=== PATIENT | female | born 1945 | race Caucasian/White ===

== ENCOUNTER 2018-05-17 07:35 | Day surgery (SDC) | payer OTHER ==
[2018-05-16 13:57] LABS: Albumin 3.2 g/dL (3.4-5.0); Bilirubin Total 0.3 mg/dL (0.2-1.0); Potassium 4.2 mmol/L (3.5-5.1); Protein, Total 7.3 g/dL (6.4-8.2)
--- OUTSIDE RECORDS SUMMARY | 2018-05-17 07:43 | XMS REPORT | Clinical Summary ---
:1945 Author Organization [facility] Address [address] [place] [address] Phone Care Team Providers Name Role Phone Unavailable Primary Care Provider Unavailable Allergies Active Allergy Reactions Severity Noted Date Comments Meperidine 01/12/2017 Indomethacin Sodium 01/12/2017 Rosuvastatin 01/12/2017 Current Medications Prescription Sig. Disp. Refills Start Date End Date Status levothyroxine Take 50 mcg by mouth Active (SYNTHROID, Every morning on an LEVOTHROID) 50 MCG empty stomach. tablet venlafaxine Take 75 mg by mouth Active (EFFEXOR) 75 MG daily. tablet gabapentin Take 300 mg by mouth Active (NEURONTIN) 300 MG 3 (three) times capsule daily. rOPINIRole (REQUIP) Take 2 mg by mouth 3 Active 2 MG tablet (three) times daily. fenofibrate Take 145 mg by mouth Active (TRICOR) 145 MG daily. tablet HYDROcodone-acetami Take 1 tablet by Active nophen (NORCO mouth every 4 (four) 10-325) 10-325 mg hours as needed for per tablet Pain. morphine (MSIR) 30 Take 30 mg by mouth Active MG tablet every night as needed for Pain. tamoxifen Take 20 mg by mouth Active (NOLVADEX) 20 MG daily. tablet esomeprazole Take 40 mg by mouth Active (NEXIUM) 40 MG daily. capsule brimonidine-timolol 1 drop 2 (two) times Active (COMBIGAN) 0.2-0.5 daily Rt eye . % ophthalmic solution bimatoprost Place 1 drop into Active (LUMIGAN) 0.03 % both eyes nightly. ophthalmic drops metoprolol Take 25 mg by mouth Active (TOPROL-XL) 25 MG daily. 24 hr tablet NIFEdipine (ADALAT Take 30 mg by mouth Active CC) 30 MG 24 hr daily. tablet calcium carbonate Take 600 mg by mouth Active (OS-NENA) 600 mg 2 (two) times daily (1,500 mg) Tab with breakfast and dinner. senna-docusate Take 1 tablet by Active (SENNOSIDES-DOCUSAT mouth daily. E SODIUM) 8.6-50 mg per tablet enoxaparin Inject 0.7 mLs (70 30 Syringe 0 01/15/2017 Active (LOVENOX) 40 mg/0.4 mg total) mL Syrg subcutaneously daily. 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
--- OUTSIDE RECORDS SUMMARY | 2018-05-17 07:43 | XMS REPORT ---
:1945 Author Organization [facility] Address [address] [place] [address] Dr. Mason [address] [place] [id number] Care Team Providers Name Role Phone RICKY AARON Unavailable Unavailable Problems This patient has no known problems. Allergies, Adverse Reactions, Alerts This patient has no known allergies or adverse reactions. Medications This patient has no known medications. Results Test Description Test Time Test Comments Text Results Atomic Results Result Comments CBC W/PLT COUNT & AUTO DIFFERENTIAL 2017-01-15 08:04:00 Test Item Value Reference Range Comments WHITE BLOOD CELL COUNT (BEAKER) (test odtq=703) 7.6 K/ L 4.0-10.0 RED BLOOD CELL COUNT (BEAKER) (test qpcz=634) 3.35 M/ L 4.00-5.00 HEMOGLOBIN (BEAKER) (test wijh=388) 9.7 GM/DL 12.0-15.0 HEMATOCRIT (BEAKER) (test dccl=907) 29.7 % 36.0-45.0 MEAN CORPUSCULAR VOLUME (BEAKER) (test ixjv=788) 88.4 fL 82.0-99.0 MEAN CORPUSCULAR HEMOGLOBIN (BEAKER) (test odjp=421) 28.9 pg 27.0-33.0 MEAN CORPUSCULAR HEMOGLOBIN CONC (BEAKER) (test ddug=639) 32.7 GM/DL 32.0- 36.0 RED CELL DISTRIBUTION WIDTH (BEAKER) (test brxu=510) 16.8 % 10.3-14.2 PLATELET COUNT (BEAKER) (test qdca=846) 240 K/CU MM 150-430 MEAN PLATELET VOLUME (BEAKER) (test trxw=989) 6.2 fL 6.5-10.5 NUCLEATED RED BLOOD CELLS (BEAKER) (test jvcp=634) 0 /100 WBC 0-0 NEUTROPHILS RELATIVE PERCENT (BEAKER) (test ssys=069) 83 % LYMPHOCYTES RELATIVE PERCENT (BEAKER) (test wzhd=599) 10 % MONOCYTES RELATIVE PERCENT (BEAKER) (test gxdm=066) 6 % EOSINOPHILS RELATIVE PERCENT (BEAKER) (test hoic=805) 0 % BASOPHILS RELATIVE PERCENT (BEAKER) (test ltjt=024) 0 % NEUTROPHILS ABSOLUTE COUNT (BEAKER) (test ziqi=941) 6.31 K/ L 1.80-8.00 LYMPHOCYTES ABSOLUTE COUNT (BEAKER) (test svry=874) 0.75 K/ L 1.48-4.50 MONOCYTES ABSOLUTE COUNT (BEAKER) (test pwzy=394) 0.47 K/ L 0.00-1.30 EOSINOPHILS ABSOLUTE COUNT (BEAKER) (test wyrl=326) 0.02 K/ L 0.00-0.50 BASOPHILS ABSOLUTE COUNT (BEAKER) (test vpck=944) 0.03 K/ L 0.00-0.20 0.00POCT-GLUCOSE [id number] 08:02:00 Test Item Value Reference Range Comments POC-GLUCOSE METER (BEAKER) 146 mg/dL 70-110 TESTED AT [address] (test wuql=2173) [facility] [id number] BASIC METABOLIC [id number] 06:13:00 Test Item Value Reference Range Comments SODIUM (BEAKER) (test 139 meq/L 136-145 vsta=081) POTASSIUM (BEAKER) (test 3.6 meq/L 3.5-5.1 gfyo=569) CHLORIDE (BEAKER) (test 105 meq/L 98-107 jdxn=208) CO2 (BEAKER) (test 25 meq/L 22-29 drkt=462) BLOOD UREA NITROGEN 21 mg/dL 7-21 (BEAKER) (test dnva=638) CREATININE (BEAKER) (test 0.88 mg/dL 0.57-1.25 xjir=038) GLUCOSE RANDOM (BEAKER) 144 mg/dL 70-105 (test cydq=644) CALCIUM (BEAKER) (test 9.2 mg/dL 8.4-10.2 fjlm=836) EGFR (BEAKER) (test 63 mL/min/1.73 sq m ESTIMATED GFR IS NOT zkov=8451) ACCURATE CREATININE CLEARANCE IN PREDICTING GLOMERULAR FILTRATION RATE. ESTIMATED GFR IS NOT APPLICABLE FOR DIALYSIS PATIENTS. PROTHROMBIN [id number] 05:53:00 Test Item Value Reference Range Comments PROTIME (BEAKER) (test hrgi=118) 16.6 seconds 11.7-14.7 INR (BEAKER) (test ojbz=699) 1.4 <=5.9 RECOMMENDED COUMADIN/WARFARIN INR THERAPY RANGESSTANDARD DOSE: 2.0 - 3.0 Includes: PROPHYLAXIS forvenous thrombosis, systemic embolization; TREATMENT for venous thrombosis and/or pulmonary embolus.HIGH RISK: Target INR is 2.5-3.5 for patients with mechanical heart valves.POCT-GLUCOSE [id number] 21:46:00 Test Item Value Reference Range Comments POC-GLUCOSE METER (BEAKER) 195 mg/dL 70-110 TESTED AT [address] (test lepf=8968) [place] [address] POCT-GLUCOSE [id number] 15:39:00 Test Item Value Reference Range Comments POC-GLUCOSE METER (BEAKER) 104 mg/dL 70-110 TESTED AT [address] (test vkaq=4521) [place] [address] POCT-GLUCOSE [id number] 08:42:00 Test Item Value Reference Range Comments POC-GLUCOSE METER (BEAKER) 151 mg/dL 70-110 TESTED AT [address] (test cacq=7625) [place] [address] POTASSIUM-STAT [id number] 08:42:00 Test Item Value Reference Range Comments POTASSIUM (BEAKER) (test chno=112) 4.2 meq/L 3.6-5.5 PROTHROMBIN [id number] 06:35:00 Test Item Value Reference Range Comments PROTIME (BEAKER) (test mvxw=636) 19.9 seconds 11.7-14.7 INR (BEAKER) (test igsh=154) 1.7 <=5.9 RECOMMENDED COUMADIN/WARFARIN INR THERAPY RANGESSTANDARD DOSE: 2.0 - 3.0 Includes: PROPHYLAXIS forvenous thrombosis, systemic embolization; TREATMENT for venous thrombosis and/or pulmonary embolus.HIGH RISK: Target INR is 2.5-3.5 for patients with mechanical heart valves.POCT-GLUCOSE [id number] 17:41:00 Test Item Value Reference Range Comments POC-GLUCOSE METER (BEAKER) 225 mg/dL 70-110 TESTED AT [address] (test zkkw=2311) [place] [id number] 00:38:00 Test Item Value Reference Range Comments PHOSPHORUS (BEAKER) (test flgv=040) 2.2 mg/dL 2.3-4.7 [id number] 00:38:00 Test Item Value Reference Range Comments MAGNESIUM (BEAKER) (test nuye=599) 2.0 mg/dL 1.6-2.6 BASIC METABOLIC [id number] 00:38:00 Test Item Value Reference Range Comments SODIUM (BEAKER) (test 138 meq/L 136-145 ehmj=258) POTASSIUM (BEAKER) (test 3.1 meq/L 3.5-5.1 jkih=299) CHLORIDE (BEAKER) (test 106 meq/L 98-107 uhyz=770) CO2 (BEAKER) (test 23 meq/L 22-29 hjyj=876) BLOOD UREA NITROGEN 16 mg/dL 7-21 (BEAKER) (test uhjs=641) CREATININE (BEAKER) (test 0.76 mg/dL 0.57-1.25 mexr=470) GLUCOSE RANDOM (BEAKER) 151 mg/dL 70-105 (test hgti=189) CALCIUM (BEAKER) (test 8.6 mg/dL 8.4-10.2 ewbt=218) EGFR (BEAKER) (test 75 mL/min/1.73 sq m ESTIMATED GFR IS NOT bwfr=9942) ACCURATE CREATININE CLEARANCE IN PREDICTING GLOMERULAR FILTRATION RATE. ESTIMATED GFR IS NOT APPLICABLE FOR DIALYSIS PATIENTS. [id number] 00:35:00 Test Item Value Reference Range Comments PARTIAL THROMBOPLASTIN TIME (BEAKER) (test 34.9 seconds 22.5-36.0 ixwj=607) PROTHROMBIN TIME/[id number] 00:34:00 Test Item Value Reference Range Comments PROTIME (BEAKER) (test xkgd=193) 26.2 seconds 11.7-14.7 INR (BEAKER) (test pgbi=976) 2.4 <=5.9 RECOMMENDED COUMADIN/WARFARIN INR THERAPY RANGESSTANDARD DOSE: 2.0 - 3.0 Includes: PROPHYLAXIS forvenous thrombosis, systemic embolization; TREATMENT for venous thrombosis and/or pulmonary embolus.HIGH RISK: Target INR is 2.5-3.5 for patients with mechanical heart valves.CBC (HEMOGRAM ONLY)2017-01-13 00:33:00 Test Item Value Reference Range Comments WHITE BLOOD CELL COUNT (BEAKER) (test mzwu=146) 5.3 K/ L 4.0-10.0 RED BLOOD CELL COUNT (BEAKER) (test kokn=636) 3.60 M/ L 4.00-5.00 HEMOGLOBIN (BEAKER) (test esja=998) 10.1 GM/DL 12.0-15.0 HEMATOCRIT (BEAKER) (test fqnj=348) 31.7 % 36.0-45.0 MEAN CORPUSCULAR VOLUME (BEAKER) (test bzko=470) 88.1 fL 82.0-99.0 MEAN CORPUSCULAR HEMOGLOBIN (BEAKER) (test 28.0 pg 27.0-33.0 pgvj=372) MEAN CORPUSCULAR HEMOGLOBIN CONC (BEAKER) (test 31.7 GM/DL 32.0-36.0 hvxt=580) RED CELL DISTRIBUTION WIDTH (BEAKER) (test 16.6 % 10.3-14.2 mpjn=497) PLATELET COUNT (BEAKER) (test zvkz=533) 260 K/CU MM 150-430 MEAN PLATELET VOLUME (BEAKER) (test cegq=723) 5.8 fL 6.5-10.5 NUCLEATED RED BLOOD CELLS (BEAKER) (test 0 /100 WBC 0-0 wqme=407) 0.00
[2018-05-17] MEDS ORDERED: NA CHLORIDE 0.9% 250 ML ONE ×2 (08:37→11:20)
[2018-05-17 10:08] VITALS: BMI 29.2
[2018-05-17 14:40] VITALS: BP 131/63; TEMP 99.4; O2SAT 96
[2018-05-17 16:38] LABS: Hematocrit 34.2 % (36.0-45.0)
== END 2018-05-17 16:30 | disposition home or self-care (01) ==
LOC: DS 07:35
PROVIDERS: ATTEND Internal Medicine Medical Oncology
PROC: 30233N1 Transfusion of Nonautologous Red Blood Cells into Peripheral Vein, Percutaneous Approach (ICD-10-PCS; principal; 2018-05-17)
DX: D64.89 Other specified anemias (principal); C50.119 Malignant neoplasm of central portion of unspecified female breast; C79.32 Secondary malignant neoplasm of cerebral meninges; I48.91 Unspecified atrial fibrillation; Z79.01 Long term (current) use of anticoagulants
CPT/HCPCS: 36415 ×2; 36430; 80053; 85014; 85018; 86850; 86900; 86901; P9016 ×2

== ENCOUNTER 2018-09-28 16:46 | Inpatient (IN) | payer OTHER ==
--- OUTSIDE RECORDS SUMMARY | 2018-09-28 16:48 | XMS REPORT | Clinical Summary ---
:1945 Author Organization [facility] Address [address] [place] [address] Care Team Providers Name Role Phone Sharpless Primary Care Provider Allergies Active Allergy Reactions Severity Noted Date Comments Meperidine 01/12/2017 Indomethacin Sodium 01/12/2017 Rosuvastatin 01/12/2017 Medications Medication Sig Dispensed Refills Start End Date Status Date levothyroxine Take 50 mcg by 0 Active (SYNTHROID, mouth Every LEVOTHROID) 50 MCG morning on an tablet empty stomach. venlafaxine Take 75 mg by 0 Active (EFFEXOR) 75 MG mouth daily. tablet gabapentin Take 300 mg by 0 Active (NEURONTIN) 300 MG mouth 3 (three) capsule times daily. rOPINIRole Take 2 mg by mouth 0 Active (REQUIP) 2 MG 3 (three) times tablet daily. fenofibrate Take 145 mg by 0 Active (TRICOR) 145 MG mouth daily. tablet HYDROcodone-acetam Take 1 tablet by 0 Active inophen (NORCO mouth every 4 10-325) 10-325 mg (four) hours as per tablet needed for Pain. esomeprazole Take 40 mg by 0 Active (NEXIUM) 40 MG mouth daily. capsule brimonidine-timolo 1 drop 2 (two) 0 Active l (COMBIGAN) times daily Rt eye 0.2-0.5 % . ophthalmic solution NIFEdipine (ADALAT Take 30 mg by 0 Active CC) 30 MG 24 hr mouth daily. tablet calcium carbonate Take 600 mg by 0 Active (OS-NENA) 600 mg mouth 2 (two) (1,500 mg) Tab times daily with breakfast and dinner. senna-docusate Take 1 tablet by 0 Active (SENNOSIDES-DOCUSA mouth daily. TE SODIUM) 8.6-50 mg per tablet VERZENIO 150 mg Take 1 tablet by 0 Active Tab mouth nightly. [address] 0[address]01 % Place 1 drop into 2 Active Drop ophthalmic the right eye 8 solution nightly. metoprolol Take 1 tablet by 3 Active (TOPROL-XL) 50 MG mouth daily. 8 24 hr tablet morphine (MS Take 30 mg by 0 Active CONTIN) 30 MG 12 mouth daily. 8 hr tablet morphine (MS Take 45 mg by 0 Active CONTIN) 15 MG 12 mouth nightly. 8 hr tablet morphine (MSIR) 30 Take 30 mg by 0 06/25/20 Discontinued MG tablet mouth every night 18 as needed for Pain. tamoxifen Take 20 mg by 0 06/25/20 Discontinued (NOLVADEX) 20 MG mouth daily. [address] 1 drop into 0 06/25/20 Discontinued (LUMIGAN) 0.03 % both eyes nightly. 18 ophthalmic drops metoprolol Take 25 mg by 0 06/25/20 Discontinued (TOPROL-XL) 25 MG mouth daily. 18 24 hr tablet enoxaparin Inject 0.7 mLs (70 30 Syringe 0 06/25/20 Discontinued (LOVENOX) 40 mg total) 7 18 mg/0.4 mL Syrg subcutaneously daily. warfarin Take 4 mg by mouth 1 06/27/20 Discontinued (COUMADIN) 2 MG every evening. 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/2017 Hypothyroid 02/01/2017 Essential hypertension 02/01/2017 Mood disorder 02/01/2017 Metastatic breast cancer 01/13/2017 Encounters Date Type Specialty Care Team Description 06/25/2018 - [facility], Paroxysmal atrial fibrillation (HCC); 06/27/2018 Encounter Medicine Trudy Jacobson, Malignant neoplasm of female breast, unspecified estrogen receptor status, unspecified laterality, unspecified site of breast (HCC); Essential hypertension; Alejandra Vieyra Fall, initial encounter; Carmelita Sarabia, History of DVT (deep vein thrombosis); Leptomeningeal disease; Danika 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 Last Filed Vital Signs Vital Sign Reading Time Taken Blood Pressure 117/58 06/27/2018 8:00 AM CDT Pulse 62 06/27/2018 8:00 AM CDT Temperature 36.7 C (98.1 F) 06/27/2018 8:00 AM CDT Respiratory Rate 16 06/27/2018 8:00 AM CDT Oxygen Saturation 99% 06/27/2018 8:00 AM CDT Inhaled Oxygen Concentration - - Weight 72.6 kg (159 lb 15.8 oz) 06/25/2018 9:00 PM CDT Height 162.6 cm (5' 4") 06/25/2018 8:00 PM CDT Body Mass Index 27.46 06/25/2018 9:00 PM CDT Plan of Treatment Not on file Procedures Procedure Name Priority Date/Time Associated Comments Diagnosis TRANSFUSION SERVICE 06/28/2018 6:02 REPORT - SCAN PM CDT RHYTHM STRIP - SCAN 06/28/2018 11:20 AM CDT PREPARE PLASMA STAT 06/27/2018 11:54 Results for this PM CDT procedure are in the results section. TRANSFUSION SERVICE 06/27/2018 6:00 REPORT - SCAN PM CDT CT BRAIN WITHOUT IV BRITNI 06/27/2018 7:04 Results for this CONTRAST AM CDT procedure are in the results section. CBC W/PLT COUNT & Routine 06/27/2018 5:11 Results for this AUTO DIFFERENTIAL AM CDT procedure are in the results section. CBC W/PLT COUNT & Routine 06/27/2018 5:11 Results for this AUTO DIFFERENTIAL AM CDT procedure are in the results section. MAGNESIUM Routine 06/27/2018 5:11 Results for this AM CDT procedure are in the results section. PROTHROMBIN TIME/INR Routine 06/27/2018 5:11 Results for this AM CDT procedure are in the results section. BASIC METABOLIC PANEL Routine 06/27/2018 5:11 Results for this (7) AM CDT procedure are in the results section. XR SPINE LUMBER 2 OR BRITNI 06/26/2018 5:06 Results for this 3 VIEWS PM CDT procedure are in the results section. XR HIP LEFT 2 VIEW BRITNI 06/26/2018 4:45 Results for this PM CDT procedure are in the results section. PROTHROMBIN TIME/INR Routine 06/26/2018 11:54 Results for this AM CDT procedure are in the results section. VENOUS DOPPLER LEGS Routine 06/26/2018 10:55 Results for this BILATERAL AM CDT procedure are in the results section. TRANSFUSE PLASMA STAT 06/26/2018 9:[address] SPINE CERVICAL Routine 06/26/2018 7:31 Results for this WITHOUT IV CONTRAST AM CDT procedure are in the results section. CT BRAIN WITHOUT IV Routine 06/26/2018 7:31 Results for this CONTRAST AM CDT procedure are in the results section. TYPE AND SCREEN, STAT 06/26/2018 5:46 Results for this AUTOMATED AM CDT procedure are in the results section. CBC W/PLT COUNT & Routine 06/26/2018 2:44 Results for this AUTO DIFFERENTIAL AM CDT procedure are in the results section. CBC W/PLT COUNT & Routine 06/26/2018 2:44 Results for this AUTO DIFFERENTIAL AM CDT procedure are in the results section. MAGNESIUM Routine 06/26/2018 2:44 Results for this AM CDT procedure are in the results section. PROTHROMBIN TIME/INR Routine 06/26/2018 2:44 Results for this AM CDT procedure are in the results section. BASIC METABOLIC PANEL Routine 06/26/2018 2:44 Results for this (7) AM CDT procedure are in the results section. CT BRAIN WITHOUT IV STAT 06/25/2018 9:21 Results for this CONTRAST PM CDT procedure are in the results section. after 09/27/2017 Results TRANSFUSION SERVICE REPORT - SCAN (06/28/2018 6:02 PM CDT)Only the most recent of2 resultswithin the time period is included. Narrative Performed At RHYTHM STRIP - SCAN (06/28/2018 11:20 AM CDT) Narrative Performed At Prepare plasma (06/27/2018 11:54 PM CDT) Unit ABO A Pos SAFETRACE TX UNIT NUMBER [id number] SAFETRACE TX Status TRANSFUSED SAFETRACE TX Blood Bank Product FFP SAFETRACE TX PRODUCT CODE [id number] SAFETRACE TX Specimen Blood Performing Organization Address City/State/Zipcode Phone Number SAFETRACE TX CT brain without IV contrast (06/27/2018 7:04 AM CDT)Only the most recent of3 resultswithin the time period is included. Narrative Performed At FINAL REPORT [facility] CT head without contrast. Comparisons: June 26, 2018 Reason for exam: SDH, eval. Discussion: Multiple axial CT images of the head are provided without contrast evaluated in brain and bone windows. Dose modulation, iterative reconstruction, and/or weight based adjustment of the mA/kV was utilized to reduce the radiation dose to as low as reasonably achievable. A subtle mildly hyperdense hemorrhagic subdural collection along left frontal convexity is barely perceptible but grossly unchanged from that of the prior study. No associated mass effect. Vascular changes of both cerebral hemispheres are similar. No hydrocephalus or shift. Phthisis bulbi changes left side again noted. Impressions: 1. Stable very small hemorrhagic subdural collection on the left with no mass effect.. Signed: Ina Wayne MD Report Verified Date/Time:06/27/2018 07:54:47 Reading Location: [address] Neuro Reading Room Procedure Note Interface, External Ris In - 06/27/2018 7:56 AM CDT FINAL REPORT CT head without contrast. Comparisons: June 26, 2018 Reason for exam: SDH, eval. Discussion: Multiple axial CT images of the head are provided without contrast evaluated in brain and bone windows. Dose modulation, iterative reconstruction, and/or weight based adjustment of the mA/kV was utilized to reduce the radiation dose to as low as reasonably achievable. A subtle mildly hyperdense hemorrhagic subdural collection along left frontal convexity is barely perceptible but grossly unchanged from that of the prior study. No associated mass effect. Vascular changes of both cerebral hemispheres are similar. No hydrocephalus or shift. Phthisis bulbi changes left side again noted. Impressions: 1. Stable very small hemorrhagic subdural collection on the left with no mass effect.. Signed: Ina Wayne MD Report Verified Date/Time: 06/27/2018 07:54:47 Reading Location: [facility] B1 [id number] Neuro Reading Room Performing Organization Address City/State/Zipcode Phone Number GE RIS CBC with platelet count + automated diff (06/27/2018 5:11 AM CDT)Only the most recent of2 resultswithin the time period is included. WBC 3.3 (L) 3.5 - 10.5 K/L [facility] RBC 2.64 (L) 3.93 - 5.22 M/L [facility] Hemoglobin 8.1 (L) 11.2 - 15.7 GM/DL [facility] Hematocrit 26.1 (L) 34.1 - 44.9 % [facility] MCV 98.9 (H) 79.4 - 94.8 fL [facility] MCH 30.7 25.6 - 32.2 pg [facility] MCHC 31.0 (L) 32.2 - 35.5 GM/DL [facility] RDW 16.3 (H) 11.7 - 14.4 % [facility] Platelets 159 150 - 450 K/CU MM [facility] MPV 8.9 (L) 9.4 - 12.3 fL [facility] nRBC 0 0 - 0 /100 WBC [facility] % Neutros 74 % [facility] % Lymphs 12 % [facility] % Monos 7 % [facility] % Eos 4 % [facility] % Baso 0 % [facility] # Neutros 2.42 1.56 - 6.13 K/L [facility] # Lymphs 0.40 (L) 1.18 - 3.74 K/L [facility] # Monos 0.21 (L) 0.24 - 0.36 K/L [facility] # Eos 0.14 0.04 - 0.36 K/L [facility] # Baso 0.01 0.01 - 0.08 K/L [facility] Immature Granulocytes-Relative 2 (H) 0 - 1 % [facility] Specimen Blood - Arm, Left Performing Organization Address City/[facility] Phone Number [address] [address] CENTER Prothrombin time/INR (06/27/2018 5:11 AM CDT)Only the most recent of3 resultswithin the time period is included. Protime 15.3 (H) 11.7 - 14.7 seconds [facility] INR 1.2 <=5.9 [facility] Specimen Blood - Arm, Left Narrative Performed At [facility] RECOMMENDED COUMADIN/WARFARIN INR THERAPY RANGES STANDARD DOSE: 2.0 - 3.0 Includes: PROPHYLAXIS for venous thrombosis, systemic embolization; TREATMENT for venous thrombosis and/or pulmonary embolus. HIGH RISK: Target INR is 2.5-3.5 for patients with mechanical heart valves. Performing Organization Address City/[facility]/Zipcode Phone Number [address] [address] CENTER Magnesium (06/27/2018 5:11 AM CDT)Only the most recent of2 resultswithin the time period is included. Magnesium 2.1 1.6 - 2.6 mg/dL [facility] Specimen Blood - Arm, Left Performing Organization Address City/State/Zipcode Phone Number [facility] [address] [place] [address] MISENHEIMER Basic metabolic panel (06/27/2018 5:11 AM CDT)Only the most recent of2 resultswithin the time period is included. Sodium 138 136 - 145 meq/L [facility] Potassium 4.0 3.5 - 5.1 meq/L [facility] Chloride 107 98 - 107 meq/L [facility] CO2 25 22 - 29 meq/L [facility] BUN 12 7 - 21 mg/dL [facility] Creatinine 0.86 0.57 - 1.25 mg/dL [facility] Glucose 98 70 - 105 mg/dL [facility] Calcium 10.0 8.4 - 10.2 mg/dL [facility] EGFR 65Comment: ESTIMATED GFR IS mL/min/1.73 sq m [facility] NOT ACCURATE CREATININE [facility]ENTER CLEARANCE IN PREDICTING GLOMERULAR FILTRATION RATE. ESTIMATED GFR IS NOT APPLICABLE FOR DIALYSIS PATIENTS. Specimen Blood - Arm, Left Performing Organization Address City/State/Zipcode Phone Number [facility] [address] [place] [address] MISENHEIMER XR spine lumbar 2 or 3 views (06/26/2018 5:06 PM CDT) Narrative Performed At FINAL REPORT [facility] CLINICAL HISTORY: Back pain, concern for pathologic fracture COMPARISON: None. Correlation is made with an MRI of the lumbar spine dated 01/14/2017. FINDINGS: 3 views of the lumbar spine are submitted without comparison. There are 5 lumbar vertebral levels. There is a stable, chronic compression deformity of the vertebral body of T11. No acute fracture is identified. There is no acute malalignment. Subtle heterogeneity of the medullary bone and is in keeping with the previous diagnosis of metastatic disease. There is mild to moderate degenerative loss of disc space height in the visualized thoracic spine and in the upper lumbar spine, including L1-L2 and L2-L3. There is facet hypertrophy in the mid to lower lumbosacral spine. The neural foramina are grossly patent. No spondylolisthesis is present. Surgical clips overlie the upper abdomen, seen on the lateral view.. IMPRESSION: No acute fracture or malalignment of the lumbar spine. Stable, chronic compression deformity of the vertebral body of T11. Subtle, diffuse heterogeneity of the medullary bone of the lumbar spine, in keeping with the previously diagnosed metastatic disease. Better evaluation with MRI or bone scan can be performed, if indicated. Degenerative changes, as described. Signed: Arslan Mcgill MD Report Verified Date/Time:06/26/2018 17:38:08 Reading Location: [address] Reading Room Procedure Note Interface, External Ris In - 06/26/2018 5:40 PM CDT FINAL REPORT CLINICAL HISTORY: Back pain, concern for pathologic fracture COMPARISON: None. Correlation is made with an MRI of the lumbar spine dated 01/14/2017. FINDINGS: 3 views of the lumbar spine are submitted without comparison. There are 5 lumbar vertebral levels. There is a stable, chronic compression deformity of the vertebral body of T11. No acute fracture is identified. There is no acute malalignment. Subtle heterogeneity of the medullary bone and is in keeping with the previous diagnosis of metastatic disease. There is mild to moderate degenerative loss of disc space height in the visualized thoracic spine and in the upper lumbar spine, including L1-L2 and L2-L3. There is facet hypertrophy in the mid to lower lumbosacral spine. The neural foramina are grossly patent. No spondylolisthesis is present. Surgical clips overlie the upper abdomen, seen on the lateral view.. IMPRESSION: No acute fracture or malalignment of the lumbar spine. Stable, chronic compression deformity of the vertebral body of T11. Subtle, diffuse heterogeneity of the medullary bone of the lumbar spine, in keeping with the previously diagnosed metastatic disease. Better evaluation with MRI or bone scan can be performed, if indicated. Degenerative changes, as described. Signed: Arslan Mcgill MD Report Verified Date/Time: 06/26/2018 17:38:08 Reading Location: [address] Reading Room Performing Organization Address [facility] Phone Number GE RIS XR hip 2 views left (06/26/2018 4:45 PM CDT) Narrative Performed At FINAL REPORT [facility] CLINICAL HISTORY: Left hip pain, concern for pathologic fracture COMPARISON: None. Correlation is made with a CT of the abdomen and pelvis dated 01/13/2017. FINDINGS: 2 views of the left hip are submitted. There is no acute fracture, malalignment or significant degenerative change to explain the patient's pain. The subtle osseous heterogeneity seen on previous CT scan is not well appreciated on this limited radiographic view of the left hip. No large destructive bony lesion is present. If there is concern for underlying infiltrative metastatic disease in the skeleton further evaluation with bone scan or MRI can be obtained. Signed: Arslan Mcgill MD Report Verified Date/Time:06/26/2018 17:33:22 Reading Location: [address] Reading Room Procedure Note Interface, External Ris In - 06/26/2018 5:35 PM CDT FINAL REPORT CLINICAL HISTORY: Left hip pain, concern for pathologic fracture COMPARISON: None. Correlation is made with a CT of the abdomen and pelvis dated 01/13/2017. FINDINGS: 2 views of the left hip are submitted. There is no acute fracture, malalignment or significant degenerative change to explain the patient's pain. The subtle osseous heterogeneity seen on previous CT scan is not well appreciated on this limited radiographic view of the left hip. No large destructive bony lesion is present. If there is concern for underlying infiltrative metastatic disease in the skeleton further evaluation with bone scan or MRI can be obtained. Signed: Arslan Mcgill MD Report Verified Date/Time: 06/26/2018 17:33:22 Reading Location: [address] Reading Room Performing Organization Address [facility] Phone Number GE RIS Venous doppler legs bilateral (06/26/2018 10:55 AM CDT) Ejection Fraction [facility]ON CPACS Impressions Performed At Right Impression [facility] 1. There is no deep venous obstruction in the common femoral, profunda femoral, femoral, popliteal, posterior tibial or peroneal veins. 2. There is no superficial venous obstruction in the great saphenous vein. Left Impression 1. There is no deep venous obstruction in the common femoral, profunda femoral, femoral, popliteal, posterior tibial or peroneal veins. 2. There is no superficial venous obstruction in the great saphenous vein. Conclusions Summary Venous duplex imaging and compression of the bilateral lower extremities were performed. The veins were adequately visualized. The bilateral venous systems were patent and compressible with no evidence of thrombus. The venous Doppler waveforms were phasic with respiration. Signature Velocities are measured in cm/s ; Diameters are measured in cm Narrative Performed At [facility] - Lower Extremities DVT Study [facility] Demographics Patient NamePHISARAH CALL Date of Study06/26/2018 SHILA 73 Visit [id number] Female of Birth1945 Number Referring Alejandra Kaur [id number] Physician Cornell Vieyra MD Plant Tour Guide Marzena Rodríguez RVTInterpreting Ganesh Merlos, RPVI Procedure Type of Study: Veins: Lower Extremities DVT Study, VENOUS DOPPLER LEG, BILATERAL. Indications for Study:Prior history of DVT . Patient Status:Routine. Study Location:Vascular Lab. Technical Quality:Adequate visualization. Risk Factors History of Disease +---------+----+ + !Diagnosis!Date!Comments ! +---------+----+ + !Other!!CANCER, HTN, PREVIOUS DVT ! +---------+----+ + Procedure Note Interface, External Ris In - 06/26/2018 11:32 AM CDT [facility] - Lower Extremities DVT Study Demographics Patient Name SARAH SHORT Date of Study 06/26/2018 SHILA Age 73 Visit Number [id number] Gender Female Date of 1945 Number Referring Alejandra Mae Room Number [id number] Physician Cornell Vieyra MD Plant Tour Guide Marzena Rodríguez T Interpreting Casi Lantigua, Physician , RPVI Procedure Type of Study: Veins: Lower Extremities DVT Study, VENOUS DOPPLER LEG, BILATERAL. Indications for Study:Prior history of DVT . Patient Status:Routine. Study Location:Vascular Lab. Technical Quality:Adequate visualization. Risk Factors History of Disease +---------+----+ + !Diagnosis!Date!Comments ! +---------+----+ + !Other ! !CANCER, HTN, PREVIOUS DVT ! +---------+----+ + Impressions Right Impression 1. There is no deep venous obstruction in the common femoral, profunda femoral, femoral, popliteal, posterior tibial or peroneal veins. 2. There is no superficial venous obstruction in the great saphenous vein. Left Impression 1. There is no deep venous obstruction in the common femoral, profunda femoral, femoral, popliteal, posterior tibial or peroneal veins. 2. There is no superficial venous obstruction in the great saphenous vein. Conclusions Summary Venous duplex imaging and compression of the bilateral lower extremities were performed. The veins were adequately visualized. The bilateral venous systems were patent and compressible with no evidence of thrombus. The venous Doppler waveforms were phasic with respiration. Signature Velocities are measured in cm/s ; Diameters are measured in cm Performing Organization Address City/State/Zipcode Phone Number [facility] Transfuse plasma (06/26/2018 9:18 AM CDT)Only the most recent of2 resultswithin the time period is included.CT spine cervical without IV contrast (06/26/2018 7:31 AM CDT) Narrative Performed At FINAL REPORT [facility] CT head without contrast. Reason for exam: subdural hematoma Comparisons: June 25, 2018 Discussion: Multiple axial CT images of the head are provided without contrast evaluated in brain and bone windows. This exam was performed according to our departmental dose optimization program which includes automated exposure control, adjustment of the mA and/or kV according to patient's size and/or use of iterative reconstructive technique. Small left high frontal subdural hematoma is unchanged, measuring up to 6 mm in maximal thickness, and without significant mass effect. There is generalized brain parenchymal volume loss, and a moderate degree of white matter chronic microvascular ischemic change, as before. No evidence of large vascular territory acute infarct. No midline shift, hydrocephalus. 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 Calvarium is intact. The visualized paranasal sinuses and mastoid air cells are unremarkable. Impressions: Stable appearance of 6 mm left subdural hematoma, without significant mass effect. CT cervical spine without contrast INDICATION: subdural hematoma COMPARISON: MRI dated January 14, 2017 TECHNIQUE: Multiple axial CT images of the cervical spine were obtained without contrast. Sagittal and coronal 2D reconstructions were provided as well. This exam was performed according to our departmental dose optimization program which includes automated exposure control, adjustment of the mA and/or kV according to patient's size and/or use of iterative reconstructive technique. FINDINGS: Vertebral body height is normal, and alignment is maintained. Multiple lytic lesions are present in the cervical spine and visualized upper thoracic spine, in keeping with known metastasis. No evidence of acute fracture. There are multilevel degenerative changes. Central canal appears mild to moderately narrowed at C5-C6, and C6-C7. There is also severe right-sided foraminal stenosis at C4-C5, and moderate bilateral foraminal stenosis at C5-C6. No prevertebral edema. No hematoma or abnormal fluid collection is identified. The paraspinal soft tissues appear unremarkable. Thyroid gland is homogeneous. There is scarring at the left lung apex. IMPRESSION: Multiple lytic lesions in cervical and upper thoracic spine, in keeping with known metastasis. Degenerative changes as described. Signed: Maranda Harris MD Report Verified Date/Time:06/26/2018 08:23:10 Reading Location: [facility] C013 Neuro Reading Room Procedure Note Interface, External Ris In - 06/26/2018 8:25 AM CDT FINAL REPORT CT head without contrast. Reason for exam: subdural hematoma Comparisons: June 25, 2018 Discussion: Multiple axial CT images of the head are provided without contrast evaluated in brain and bone windows. This exam was performed according to our departmental dose optimization program which includes automated exposure control, adjustment of the mA and/or kV according to patient's size and/or use of iterative reconstructive technique. Small left high frontal subdural hematoma is unchanged, measuring up to 6 mm in maximal thickness, and without significant mass effect. There is generalized brain parenchymal volume loss, and a moderate degree of white matter chronic microvascular ischemic change, as before. No evidence of large vascular territory acute infarct. No midline shift, hydrocephalus. 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 Calvarium is intact. The visualized paranasal sinuses and mastoid air cells are unremarkable. Impressions: Stable appearance of 6 mm left subdural hematoma, without significant mass effect. CT cervical spine without contrast INDICATION: subdural hematoma COMPARISON: MRI dated January 14, 2017 TECHNIQUE: Multiple axial CT images of the cervical spine were obtained without contrast. Sagittal and coronal 2D reconstructions were provided as well. This exam was performed according to our departmental dose optimization program which includes automated exposure control, adjustment of the mA and/or kV according to patient's size and/or use of iterative reconstructive technique. FINDINGS: Vertebral body height is normal, and alignment is maintained. Multiple lytic lesions are present in the cervical spine and visualized upper thoracic spine, in keeping with known metastasis. No evidence of acute fracture. There are multilevel degenerative changes. Central canal appears mild to moderately narrowed at C5-C6, and C6-C7. There is also severe right-sided foraminal stenosis at C4-C5, and moderate bilateral foraminal stenosis at C5-C6. No prevertebral edema. No hematoma or abnormal fluid collection is identified. The paraspinal soft tissues appear unremarkable. Thyroid gland is homogeneous. There is scarring at the left lung apex. IMPRESSION: Multiple lytic lesions in cervical and upper thoracic spine, in keeping with known metastasis. Degenerative changes as described. Signed: Maranda Harris MD Report Verified Date/Time: 06/26/2018 08:23:10 Reading Location: [place] [id number] Neuro Reading Room Performing Organization Address City/State/Zipcode Phone Number GE RIS Type and screen, automated (06/26/2018 5:46 AM CDT) ABO/RH AUTOMATED (BEAKER) A POSITIVE [facility] Ab Scrn NEGATIVE [facility] Specimen Blood Performing Organization Address City/[facility]/Zipcode Phone Number [facility] [address] [place] [address] [phone] after 09/27/2017 Insurance Payer Benefit Plan / Group Subscriber ID Type Phone Address MEDICARE MEDICARE A B xxxxxxxxxxx Medicare AETNA - MGD CARE AETNA INDEMNITY NON xxxxxxxxx Comm CONTR MCR [employer] xxxxxxxx Medigap SUPPLEMENT/INDIVIDUAL Advance Directives For more information, please contact:[facility] [place], [place] [phone] Code Status Date Activated Date Inactivated Comments Full Code 06/25/2018 9:01 PM 06/27/2018 5:18 PM This code status was determined by: Patient Full Code 01/13/2017 1:44 AM 01/15/2017 2:36 PM This code status was determined by: Patient
--- OUTSIDE RECORDS SUMMARY | 2018-09-28 16:49 | XMS REPORT ---
:1945 Author Organization [facility] Address [address] [place] [address] Dr. Mason [address] [place] [id number] Care Team Providers Name Role Phone NATALIE SARMIENTO Unavailable Unavailable NALAM, RICKY SAI Unavailable Unavailable Problems This patient has no known problems. Allergies, Adverse Reactions, Alerts This patient has no known allergies or adverse reactions. Medications This patient has no known medications. Results Test Description Test Time Test Comments Text Results Atomic Results Result Comments CT, BRAIN, WITHOUT CONTRAST 2018-06-27 07:54:[address] head without contrast. Comparisons: [...] with no mass effect.. Signed: Ina Wayne Verified Date/Time: 06/27/2018 07:54:47 Reading Location: [address] Neuro Reading Room ESIUM 2018-06-27 06:11:00 Test Item Value Reference Range Comments MAGNESIUM (BEAKER) (test xcgn=548) 2.1 mg/dL 1.6-2.6 BASIC METABOLIC [id number] 06:11:00 Test Item Value Reference Range Comments SODIUM (BEAKER) (test 138 meq/L 136-145 qnjg=210) POTASSIUM (BEAKER) (test 4.0 meq/L 3.5-5.1 krtl=561) CHLORIDE (BEAKER) (test 107 meq/L 98-107 svvn=212) CO2 (BEAKER) (test 25 meq/L 22-29 pebk=235) BLOOD UREA NITROGEN 12 mg/dL 7-21 (BEAKER) (test mdws=960) CREATININE (BEAKER) (test 0.86 mg/dL 0.57-1.25 gvjk=284) GLUCOSE RANDOM (BEAKER) 98 mg/dL 70-105 (test rwpf=355) CALCIUM (BEAKER) (test 10.0 mg/dL 8.4-10.2 dpjk=822) EGFR (BEAKER) (test 65 mL/min/1.73 sq m ESTIMATED GFR IS NOT hyok=5236) ACCURATE CREATININE CLEARANCE IN PREDICTING GLOMERULAR FILTRATION RATE. ESTIMATED GFR IS NOT APPLICABLE FOR DIALYSIS PATIENTS. PROTHROMBIN TIME/[id number] 05:47:00 Test Item Value Reference Range Comments PROTIME (BEAKER) (test ocjp=226) 15.3 seconds 11.7-14.7 INR (BEAKER) (test ubij=216) 1.2 <=5.9 RECOMMENDED COUMADIN/WARFARIN INR THERAPY RANGESSTANDARD DOSE: 2.0 - 3.0 Includes: PROPHYLAXIS forvenous thrombosis, systemic embolization; TREATMENT for venous thrombosis and/or pulmonary embolus.HIGH RISK: Target INR is 2.5-3.5 for patients with mechanical heart valves.CBC W/PLT COUNT & AUTO [id number] 05:36:00 Test Item Value Reference Range Comments WHITE BLOOD CELL COUNT (BEAKER) (test ryhp=820) 3.3 K/ L 3.5-10.5 RED BLOOD CELL COUNT (BEAKER) (test dfmu=639) 2.64 M/ L 3.93-5.22 HEMOGLOBIN (BEAKER) (test bzus=459) 8.1 GM/DL 11.2-15.7 HEMATOCRIT (BEAKER) (test piiu=645) 26.1 % 34.1-44.9 MEAN CORPUSCULAR VOLUME (BEAKER) (test dshc=498) 98.9 fL 79.4-94.8 MEAN CORPUSCULAR HEMOGLOBIN (BEAKER) (test 30.7 pg 25.6-32.2 yqis=984) MEAN CORPUSCULAR HEMOGLOBIN CONC (BEAKER) (test 31.0 GM/DL 32.2-35.5 dpwi=811) RED CELL DISTRIBUTION WIDTH (BEAKER) (test 16.3 % 11.7-14.4 nkrt=274) PLATELET COUNT (BEAKER) (test uujc=861) 159 K/CU MM 150-450 MEAN PLATELET VOLUME (BEAKER) (test jpoa=665) 8.9 fL 9.4-12.3 NUCLEATED RED BLOOD CELLS (BEAKER) (test 0 /100 WBC 0-0 twfr=981) NEUTROPHILS RELATIVE PERCENT (BEAKER) (test 74 % zzfu=705) LYMPHOCYTES RELATIVE PERCENT (BEAKER) (test 12 % tldr=105) MONOCYTES RELATIVE PERCENT (BEAKER) (test 7 % ixhh=675) EOSINOPHILS RELATIVE PERCENT (BEAKER) (test 4 % tess=632) BASOPHILS RELATIVE PERCENT (BEAKER) (test 0 % zhug=491) NEUTROPHILS ABSOLUTE COUNT (BEAKER) (test 2.42 K/ L 1.56-6.13 jljr=098) LYMPHOCYTES ABSOLUTE COUNT (BEAKER) (test 0.40 K/ L 1.18-3.74 qqnv=474) MONOCYTES ABSOLUTE COUNT (BEAKER) (test 0.21 K/ L 0.24-0.36 mewf=857) EOSINOPHILS ABSOLUTE COUNT (BEAKER) (test 0.14 K/ L 0.04-0.36 wpcf=007) BASOPHILS ABSOLUTE COUNT (BEAKER) (test 0.01 K/ L 0.01-0.08 lyib=913) IMMATURE GRANULOCYTES-RELATIVE PERCENT (BEAKER) 2 % 0-1 (test ijfu=6895) RAD, SPINE, LUMBAR, 2 OR 3 [id number] 17:38:00Reason for exam:->back pain, concern for pathologic fractureFINAL REPORT CLINICAL HISTORY: Back pain, concern for pathologic fracture COMPARISON: None. Correlation is made with an MRI of the lumbar spine dated 01/14/2017. FINDINGS: 3 views of the lumbar spine are submitted without comparison. There are 5 lumbar vertebral levels. There miguelina stable, chronic compression deformity of the vertebral body of T11. No acute fracture is identified. There is no acute malalignment. Subtle heterogeneity of the medullary bone and is in keeping with the previous diagnosis of metastatic disease. There is mild to moderate degenerative loss of disc space height in the visualized thoracic spine and in the upper lumbar spine, including L1-L2 and L2-L3.There is facet hypertrophy in the mid to lower lumbosacral spine. The neural foramina are grossly patent. No spondylolisthesis is present. Surgical clips overlie the upper abdomen, seen on the lateral view.. IMPRESSION: No acute fracture or malalignment of the lumbar spine. Stable, chronic compression deformity of the vertebral body of T11. Subtle, diffuse heterogeneity of the medullary bone of thelumbar spine, in keeping with the previously diagnosed metastatic disease. Better evaluation with MRI or bone scan can be performed, if indicated. Degenerative changes, as described. Signed: Arslan Cedeno Verified Date/Time: 06/26/2018 17:38: 08 Reading Location: [address] Reading Room RAD, HIP, 2 VIEWS, [id number] 17:33:00Reason for exam:->hip pain, concern for pathologic fractureFINAL REPORT CLINICAL HISTORY: Left hip pain, concern [...] or MRI can be obtained. Signed: Arslan Cedeno MDRasterort Verified Date/Time: 06/26/2018 17:33:22 Reading Location : [address] Reading Room PROTHROMBIN [id number] 12:39:00 Test Item Value Reference Range Comments PROTIME (BEAKER) (test cncj=899) 16.4 seconds 11.7-14.7 INR (BEAKER) (test oivq=979) 1.3 <=5.9 RECOMMENDED COUMADIN/WARFARIN INR THERAPY RANGESSTANDARD DOSE: 2.0 - 3.0 Includes: PROPHYLAXIS forvenous thrombosis, systemic embolization; TREATMENT for venous thrombosis and/or pulmonary embolus.HIGH RISK: Target INR is 2.5-3.5 for patients with mechanical heart valves.To follow up after FFP was givenCT, BRAIN, WITHOUT [id number] 08:23:00FINAL REPORT CT head without contrast. Reason for [...] mm in maximal thickness, and without significant masseffect. There is generalized brain parenchymal volume loss, and a moderate degree of white matter chronic microvascular ischemic change, as before. No evidence of large vascular territory acute infarct. No midline shift, hydrocephalus. 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 Calvarium is intact. The visualized [...] Degenerative changes as described. Signed: Maranda Harris MDReport Verified Date/Time: 06/26/2018 08:23:10 Reading Location: [facility] B1 C013V Neuro Reading Room Electronically signed by: MARANDA HARRIS M.D. on 08:23 AMCT, SPINE, CERVICAL, WO [id number] 08:23:00FINAL REPORT CT head without contrast. Reason for [...] mm in maximal thickness, and without significant masseffect. There is generalized brain parenchymal volume loss, and a moderate degree of white matter chronic microvascular ischemic change, as before. No evidence of large vascular territory acute infarct. No midline shift, hydrocephalus. 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 Calvarium is intact. The visualized [...] metastasis. Degenerative changes as described. Signed: Maranda Harrisort Verified Date/Time: 06/26/2018 08:23:10 Reading Location: [address] Neuro Reading Room Electronically signed by: MARANDA HARRIS M.D. on 08:23 [id number] 03:24:00 Test Item Value Reference Range Comments MAGNESIUM (BEAKER) (test mjfu=293) 2.0 mg/dL 1.6-2.6 BASIC METABOLIC [id number] 03:24:00 Test Item Value Reference Range Comments SODIUM (BEAKER) (test 135 meq/L 136-145 imav=834) POTASSIUM (BEAKER) (test 3.8 meq/L 3.5-5.1 wdfa=440) CHLORIDE (BEAKER) (test 104 meq/L 98-107 obby=768) CO2 (BEAKER) (test 25 meq/L 22-29 eqhc=566) BLOOD UREA NITROGEN 11 mg/dL 7-21 (BEAKER) (test drnl=281) CREATININE (BEAKER) (test 0.92 mg/dL 0.57-1.25 mbjv=231) GLUCOSE RANDOM (BEAKER) 156 mg/dL 70-105 (test jeoa=164) CALCIUM (BEAKER) (test 9.9 mg/dL 8.4-10.2 wnoy=596) EGFR (BEAKER) (test 60 mL/min/1.73 sq m ESTIMATED GFR IS NOT cmky=2188) ACCURATE CREATININE CLEARANCE IN PREDICTING GLOMERULAR FILTRATION RATE. ESTIMATED GFR IS NOT APPLICABLE FOR DIALYSIS PATIENTS. CBC W/PLT COUNT & AUTO [id number] 03:06:00 Test Item Value Reference Range Comments WHITE BLOOD CELL COUNT (BEAKER) (test rvbl=497) 4.2 K/ L 3.5-10.5 RED BLOOD CELL COUNT (BEAKER) (test blku=486) 2.84 M/ L 3.93-5.22 HEMOGLOBIN (BEAKER) (test dgur=372) 8.9 GM/DL 11.2-15.7 HEMATOCRIT (BEAKER) (test offf=352) 27.5 % 34.1-44.9 MEAN CORPUSCULAR VOLUME (BEAKER) (test rcue=829) 96.8 fL 79.4-94.8 MEAN CORPUSCULAR HEMOGLOBIN (BEAKER) (test 31.3 pg 25.6-32.2 tkma=481) MEAN CORPUSCULAR HEMOGLOBIN CONC (BEAKER) (test 32.4 GM/DL 32.2-35.5 qlnw=288) RED CELL DISTRIBUTION WIDTH (BEAKER) (test 16.5 % 11.7-14.4 nnmf=924) PLATELET COUNT (BEAKER) (test hdfh=137) 143 K/CU MM 150-450 MEAN PLATELET VOLUME (BEAKER) (test dhwg=638) 8.3 fL 9.4-12.3 NUCLEATED RED BLOOD CELLS (BEAKER) (test 0 /100 WBC 0-0 boau=107) NEUTROPHILS RELATIVE PERCENT (BEAKER) (test 83 % pcmk=685) LYMPHOCYTES RELATIVE PERCENT (BEAKER) (test 8 % whfi=337) MONOCYTES RELATIVE PERCENT (BEAKER) (test 6 % fuxk=563) EOSINOPHILS RELATIVE PERCENT (BEAKER) (test 1 % baon=871) BASOPHILS RELATIVE PERCENT (BEAKER) (test 0 % flog=753) NEUTROPHILS ABSOLUTE COUNT (BEAKER) (test 3.47 K/ L 1.56-6.13 bhvb=594) LYMPHOCYTES ABSOLUTE COUNT (BEAKER) (test 0.31 K/ L 1.18-3.74 dzxw=466) MONOCYTES ABSOLUTE COUNT (BEAKER) (test 0.26 K/ L 0.24-0.36 gyvq=800) EOSINOPHILS ABSOLUTE COUNT (BEAKER) (test 0.06 K/ L 0.04-0.36 hpdg=907) BASOPHILS ABSOLUTE COUNT (BEAKER) (test 0.01 K/ L 0.01-0.08 orqu=609) IMMATURE GRANULOCYTES-RELATIVE PERCENT (BEAKER) 1 % 0-1 (test sfui=8092) PROTHROMBIN [id number] 03:06:00 Test Item Value Reference Range Comments PROTIME (BEAKER) (test lkfh=353) 20.7 seconds 11.7-14.7 INR (BEAKER) (test kvcy=475) 1.8 <=5.9 RECOMMENDED COUMADIN/WARFARIN INR THERAPY RANGESSTANDARD DOSE: 2.0 - 3.0 Includes: PROPHYLAXIS forvenous thrombosis, systemic embolization; TREATMENT for venous thrombosis and/or pulmonary embolus.HIGH RISK: Target INR is 2.5-3.5 for patients with mechanical heart valves.CT, BRAIN, WITHOUT [id number] 21:34:00FINAL REPORT CT, BRAIN, WITHOUT CONTRAST INDICATION: fall, supratherapeutic INR TECHNIQUE: Noncontrast axial imaging was obtained from the vertex to the skull base. Axial images were reconstructed using a bone algorithm. DOSE REDUCTION: Dose modulation, iterative reconstruction,and/or weight-based adjustment of the mA/kV was utilized to reduce the radiation dose to as low as reasonably achievable. COMPARISON: None. FINDINGS: Cerebral parenchyma: Diffuse parenchymal volume loss. Appearance of the white matter suggests chronic microvascular disease.Midline structures: Normallypositioned.Cerebellum and brainstem: Commensurate volume loss.Ventricles : Normal volume.Extra-axial spaces: Small volume left frontal subdural hematoma. Approximate maximal lateral dimension 6 mm. No underlying mass effect. Calvarium and skull base: Intact.Paranasal sinuses and mastoid air cells : Visible chambers are clear.Orbital contents: Left phthisis bulbi. Additional findings: None. IMPRESSION: Approximately 6 mm left subdural hematoma without underlying mass effect. Referring provider was paged and primary nurse informed at 2130 hours on June 25, 2018 Signed: JR Strange Robert MDReport Verified Date/Time: 06/25/2018 21:34:01 Reading Location: [address] Body Reading Room 09: 34 PMCBC W/PLT COUNT & AUTO [id number] 08:04:00 Test Item Value Reference Range Comments WHITE BLOOD CELL COUNT (BEAKER) (test ctaw=237) 7.6 K/ L 4.0-10.0 RED BLOOD CELL COUNT (BEAKER) (test jvrp=062) 3.35 M/ L 4.00-5.00 HEMOGLOBIN (BEAKER) (test izqx=303) 9.7 GM/DL 12.0-15.0 HEMATOCRIT (BEAKER) (test pfog=243) 29.7 % 36.0-45.0 MEAN CORPUSCULAR VOLUME (BEAKER) (test zfqp=024) 88.4 fL 82.0-99.0 MEAN CORPUSCULAR HEMOGLOBIN (BEAKER) (test 28.9 pg 27.0-33.0 bycj=732) MEAN CORPUSCULAR HEMOGLOBIN CONC (BEAKER) (test 32.7 GM/DL 32.0-36.0 anxz=318) RED CELL DISTRIBUTION WIDTH (BEAKER) (test 16.8 % 10.3-14.2 lcmm=080) PLATELET COUNT (BEAKER) (test dbqx=874) 240 K/CU MM 150-430 MEAN PLATELET VOLUME (BEAKER) (test muxt=554) 6.2 fL 6.5-10.5 NUCLEATED RED BLOOD CELLS (BEAKER) (test 0 /100 WBC 0-0 xack=553) NEUTROPHILS RELATIVE PERCENT (BEAKER) (test 83 % qtxr=689) LYMPHOCYTES RELATIVE PERCENT (BEAKER) (test 10 % toap=813) MONOCYTES RELATIVE PERCENT (BEAKER) (test 6 % emdp=214) EOSINOPHILS RELATIVE PERCENT (BEAKER) (test 0 % quxl=606) BASOPHILS RELATIVE PERCENT (BEAKER) (test 0 % sgew=490) NEUTROPHILS ABSOLUTE COUNT (BEAKER) (test 6.31 K/ L 1.80-8.00 ieiz=332) LYMPHOCYTES ABSOLUTE COUNT (BEAKER) (test 0.75 K/ L 1.48-4.50 cyhw=017) MONOCYTES ABSOLUTE COUNT (BEAKER) (test 0.47 K/ L 0.00-1.30 slqj=836) EOSINOPHILS ABSOLUTE COUNT (BEAKER) (test 0.02 K/ L 0.00-0.50 szxd=327) BASOPHILS ABSOLUTE COUNT (BEAKER) (test 0.03 K/ L 0.00-0.20 nbdk=461) 0.00POCT-GLUCOSE [id number] 08:02:00 Test Item Value Reference Range Comments POC-GLUCOSE METER (BEAKER) 146 mg/dL 70-110 TESTED AT [facility] [address] [facility] (test tavh=5109) [facility] [address] BASIC METABOLIC [id number] 06:13:00 Test Item Value Reference Range Comments SODIUM (BEAKER) (test 139 meq/L 136-145 kgsl=401) POTASSIUM (BEAKER) (test 3.6 meq/L 3.5-5.1 lzwi=384) CHLORIDE (BEAKER) (test 105 meq/L 98-107 ntmi=274) CO2 (BEAKER) (test 25 meq/L 22-29 jsku=021) BLOOD UREA NITROGEN 21 mg/dL 7-21 (BEAKER) (test srva=924) CREATININE (BEAKER) (test 0.88 mg/dL 0.57-1.25 ghoh=012) GLUCOSE RANDOM (BEAKER) 144 mg/dL 70-105 (test fppi=596) CALCIUM (BEAKER) (test 9.2 mg/dL 8.4-10.2 vlri=312) EGFR (BEAKER) (test 63 mL/min/1.73 sq m ESTIMATED GFR IS NOT udhq=5010) ACCURATE CREATININE CLEARANCE IN PREDICTING GLOMERULAR FILTRATION RATE. ESTIMATED GFR IS NOT APPLICABLE FOR DIALYSIS PATIENTS. PROTHROMBIN [id number] 05:53:00 Test Item Value Reference Range Comments PROTIME (BEAKER) (test arph=183) 16.6 seconds 11.7-14.7 INR (BEAKER) (test hjuw=927) 1.4 <=5.9 RECOMMENDED COUMADIN/WARFARIN INR THERAPY RANGESSTANDARD DOSE: 2.0 - 3.0 Includes: PROPHYLAXIS forvenous thrombosis, systemic embolization; TREATMENT for venous thrombosis and/or pulmonary embolus.HIGH RISK: Target INR is 2.5-3.5 for patients with mechanical heart valves.POCT-GLUCOSE [id number] 21:46:00 Test Item Value Reference Range Comments POC-GLUCOSE METER (BEAKER) 195 mg/dL 70-110 TESTED AT [address] (test xpfr=8123) [facility] [address] POCT-GLUCOSE [id number] 15:39:00 Test Item Value Reference Range Comments POC-GLUCOSE METER (BEAKER) 104 mg/dL 70-110 TESTED AT [address] (test fzgj=1807) [facility] [address] POCT-GLUCOSE [id number] 08:42:00 Test Item Value Reference Range Comments POC-GLUCOSE METER (BEAKER) 151 mg/dL 70-110 TESTED AT [address] (test gjjb=1188) [facility] [address] POTASSIUM-STAT [id number] 08:42:00 Test Item Value Reference Range Comments POTASSIUM (BEAKER) (test muwe=120) 4.2 meq/L 3.6-5.5 PROTHROMBIN [id number] 06:35:00 Test Item Value Reference Range Comments PROTIME (BEAKER) (test uqwg=402) 19.9 seconds 11.7-14.7 INR (BEAKER) (test wsnf=576) 1.7 <=5.9 RECOMMENDED COUMADIN/WARFARIN INR THERAPY RANGESSTANDARD DOSE: 2.0 - 3.0 Includes: PROPHYLAXIS forvenous thrombosis, systemic embolization; TREATMENT for venous thrombosis and/or pulmonary embolus.HIGH RISK: Target INR is 2.5-3.5 for patients with mechanical heart valves.POCT-GLUCOSE [id number] 17:41:00 Test Item Value Reference Range Comments POC-GLUCOSE METER (BEAKER) 225 mg/dL 70-110 TESTED AT [facility] [address] [facility] (test oduc=8306) [facility] [address] [id number] 00:38:00 Test Item Value Reference Range Comments PHOSPHORUS (BEAKER) (test oxkl=225) 2.2 mg/dL 2.3-4.7 [id number] 00:38:00 Test Item Value Reference Range Comments MAGNESIUM (BEAKER) (test otcw=333) 2.0 mg/dL 1.6-2.6 BASIC METABOLIC [id number] 00:38:00 Test Item Value Reference Range Comments SODIUM (BEAKER) (test 138 meq/L 136-145 uabf=511) POTASSIUM (BEAKER) (test 3.1 meq/L 3.5-5.1 ncnz=232) CHLORIDE (BEAKER) (test 106 meq/L 98-107 ocwt=873) CO2 (BEAKER) (test 23 meq/L 22-29 gyhb=841) BLOOD UREA NITROGEN 16 mg/dL 7-21 (BEAKER) (test ldqq=445) CREATININE (BEAKER) (test 0.76 mg/dL 0.57-1.25 hswm=867) GLUCOSE RANDOM (BEAKER) 151 mg/dL 70-105 (test dtgv=027) CALCIUM (BEAKER) (test 8.6 mg/dL 8.4-10.2 gpen=519) EGFR (BEAKER) (test 75 mL/min/1.73 sq m ESTIMATED GFR IS NOT qjwh=3444) ACCURATE CREATININE CLEARANCE IN PREDICTING GLOMERULAR FILTRATION RATE. ESTIMATED GFR IS NOT APPLICABLE FOR DIALYSIS PATIENTS. [id number] 00:35:00 Test Item Value Reference Range Comments PARTIAL THROMBOPLASTIN TIME (BEAKER) (test 34.9 seconds 22.5-36.0 xosw=320) PROTHROMBIN [id number] 00:34:00 Test Item Value Reference Range Comments PROTIME (BEAKER) (test gmsj=527) 26.2 seconds 11.7-14.7 INR (BEAKER) (test rxau=452) 2.4 <=5.9 RECOMMENDED COUMADIN/WARFARIN INR THERAPY RANGESSTANDARD DOSE: 2.0 - 3.0 Includes: PROPHYLAXIS forvenous thrombosis, systemic embolization; TREATMENT for venous thrombosis and/or pulmonary embolus.HIGH RISK: Target INR is 2.5-3.5 for patients with mechanical heart valves.CBC (HEMOGRAM ONLY)[id number] 00:33:00 Test Item Value Reference Range Comments WHITE BLOOD CELL COUNT (BEAKER) (test cshd=618) 5.3 K/ L 4.0-10.0 RED BLOOD CELL COUNT (BEAKER) (test vrqy=410) 3.60 M/ L 4.00-5.00 HEMOGLOBIN (BEAKER) (test stmr=272) 10.1 GM/DL 12.0-15.0 HEMATOCRIT (BEAKER) (test bqbx=634) 31.7 % 36.0-45.0 MEAN CORPUSCULAR VOLUME (BEAKER) (test yxit=809) 88.1 fL 82.0-99.0 MEAN CORPUSCULAR HEMOGLOBIN (BEAKER) (test 28.0 pg 27.0-33.0 enjl=957) MEAN CORPUSCULAR HEMOGLOBIN CONC (BEAKER) (test 31.7 GM/DL 32.0-36.0 nfei=591) RED CELL DISTRIBUTION WIDTH (BEAKER) (test 16.6 % 10.3-14.2 cnzn=778) PLATELET COUNT (BEAKER) (test shyj=847) 260 K/CU MM 150-430 MEAN PLATELET VOLUME (BEAKER) (test ikhe=909) 5.8 fL 6.5-10.5 NUCLEATED RED BLOOD CELLS (BEAKER) (test 0 /100 WBC 0-0 ultr=930) 0.00
--- NOTE | 2018-09-28 18:06 | RAD REPORT ---
EXAM DESCRIPTION: RAD - Hip Left 2 View - 09/28/2018 5:58 pm CLINICAL HISTORY: PAIN COMPARISON: Hip Left 2 View dated 06/25/2018; Hip Left 2 View dated 11/18/2017; Head C Spine Cap Wo Co n dated 06/25/2018; Spine Lumbar W/Wo Cont dated 05/04/2018 FINDINGS: Vague sclerosis is seen involving the inferior pubic ramus on the left. This likely repres ents bony metastatic disease. No pathologic fracture evident.
--- NOTE | 2018-09-28 18:13 | RAD REPORT ---
EXAM DESCRIPTION: RAD - Chest Single View - 09/28/2018 6:08 pm CLINICAL HISTORY: DYSPNEA Chest pain. COMPARISON: Chest Single View dated 06/25/2018; Chest Single View dated 11/18/2017; CHEST PA AND LAT 2 VIEW dated 08/14/2015; CHEST SINGLE VIEW dated 05/27/2013 FINDINGS: Portable technique limits examination quality. The lungs are grossly clear. The heart is normal in size. No displaced fractures. IMPRESSION: No acute intrathoracic process suspected.
[2018-09-28] MEDS ORDERED: METOPROLOL TARTRATE 5 MG/5 ML INJ IV ONE ×3 (18:26→20:33)
[2018-09-28 18:37] LABS: Protime INR 1.43
[2018-09-28 18:45] LABS: Absolute Lymphocytes (CBC) 0.3 K/uL (0.7-4.9); Absolute Monocytes 0.2 K/uL (0.1-1.3); Absolute Neutrophil 2.5 K/uL (1.8-8.0); BUN Blood Urea Nitrogen 13 mg/dL (7-18); Basophils % 0.5 % (0-1.3); Bicarbonate 24 mmol/L (21-32); Eosinophils % 2.4 % (0-4.4); Glucose Level 139 mg/dL (74-106); Hematocrit 22.2 % (36.0-45.0); MPV 7.2 fL (7.6-11.3); Magnesium 2.2 mg/dL (1.8-2.4); Monocytes % 6.5 % (3.3-12.3); NT PRO-BNP 1256 pg/mL (<125); RBC Red Blood Cell Count 2.17 M/uL (3.86-4.86); Sodium Level 140 mmol/L (136-145); Troponin (Emerg Dept Use Only) < 0.02 ng/mL (0.0-0.045)
[2018-09-28] MEDS ORDERED: FENTANYL CITR 100 MCG/2 ML ONE (19:00)
[2018-09-28] MEDS ORDERED: METOPROLOL TAR 25 MG TAB ONE (19:00)
[2018-09-28] MEDS ORDERED: NA CHLORIDE 0.9% 1,000 ML ONE (19:09)
--- NOTE | 2018-09-28 21:12 | ER ---
Nurse's Notes [facility] Name: Sarah Betancourt Age: 73 yrs Sex: Female : 1945 Arrival Date: 09/28/2018 Time: 16:52 Bed 20 Private MD: Diagnosis: Unspecified atrial fibrillation-wtih RVR;Dyspnea;Pain in left hip Presentation: 09/28 16:53 Presenting complaint: EMS states: NON-TRAUMATIC HIP PAIN. Transition of care: patient bp was not received from another setting of care. Onset of symptoms is unknown. Risk Assessment: Do you want to hurt yourself or someone else? Patient reports no desire to harm self or others. Initial Sepsis Screen: Does the patient meet any 2 criteria? No. Patient's initial sepsis screen is negative. Does the patient have a suspected source of infection? No. Patient's initial sepsis screen is negative. Care prior to arrival: IV initiated. 22 GA, in the right forearm. 16:53 Method Of Arrival: EMS: [facility] bp 16:53 Acuity: MARIA R 4 bp Triage Assessment: 17:00 General: Appears in no apparent distress. comfortable, Behavior is calm, cooperative, bp appropriate for age. Pain: Complains of pain in pelvis. Historical: - Allergies: 17:00 Demerol; bp 17:00 Indocin; bp 17:00 Niacin; bp 17:00 rosuvastatin calcium; bp - Home Meds: 17:00 Synthroid 50 mcg Oral tab 1 tab once daily [Active]; Neurontin 300 mg Oral cap 1 cap 3 bp times per day [Active]; venlafaxine 75 mg oral cp24 [Active]; Requip 2 mg Oral tab 1 tab 3 times per day [Active]; Tricor 145 mg Oral tab 1 tab once daily [Active]; Nexium 40 mg Oral cpDR 1 cap once daily [Active]; Xarelto 10 mg oral tab 1 tab once daily [Active]; nifedipine 30 mg Oral TbER 1 tab once daily [Active]; Toprol XL 200 mg Oral Tb24 [Active]; Aurora 10-325 mg Oral tab 1 tab every 6 hours [Active]; morphine 45 mg oral CM24 1 cap twice a day [Active]; Combigan 0.2-0.5 % ophthalmic drop 1 drop every 12 hours [Active]; Lumigan 0.01 % ophthalmic drop daily [Active]; - PMHx: 17:00 BREAST CA; Hyperlipidemia; Hypertension; GERD; Atrial Fib; bp - Immunization history:: Adult Immunizations up to date. - Social history:: Smoking status: Patient/guardian denies using tobacco. - Ebola Screening: : Patient negative for fever greater than or equal to 101.5 degrees Fahrenheit, and additional compatible Ebola Virus Disease symptoms Patient denies exposure to infectious person Patient denies travel to an Ebola-affected area in the 21 days before illness onset No symptoms or risks identified at this time. Screenin:08 Abuse screen: Denies threats or abuse. Denies injuries from another. Nutritional bp screening: No deficits noted. Tuberculosis screening: No symptoms or risk factors identified. Fall Risk None identified. Assessment: 17:00 General: SEE TRIAGE NOTE. bp 18:00 Reassessment: PT IN RADIOLOGY, ALL CURRENT ORDERS IN PROCESS. bp 19:42 Reassessment: Patient appears in no apparent distress at this time. Patient and/or jd3 family updated on plan of care and expected duration. Pain level reassessed. Patient is alert, oriented x 3, equal unlabored respirations, skin warm/dry/pink. Patient denies pain at this time. 20:45 Reassessment: Patient appears in no apparent distress at this time. Patient and/or jd3 family updated on plan of care and expected duration. Pain level reassessed. Patient is alert, oriented x 3, equal unlabored respirations, skin warm/dry/pink. 22:04 Reassessment: Patient appears in no apparent distress at this time. Patient and/or jd3 family updated on plan of care and expected duration. Pain level reassessed. Patient is alert, oriented x 3, equal unlabored respirations, skin warm/dry/pink. Vital Signs: 17:00 BP 125 / 72; Pulse 66; Resp 18; Temp 98; Pulse Ox 97% on R/A; Weight 72.57 kg (R); bp 18:48 BP 103 / 80; Pulse 105; Resp 11; Pulse Ox 99% on R/A; mh5 19:04 BP 126 / 82; Pulse 135; Resp 18; Pulse Ox 100% ; bp 19:42 BP 101 / 70; Pulse 127; Resp 18 S; Pulse Ox 98% on R/A; jd3 20:45 BP 102 / 52; Pulse 125; Resp 18 S; Pulse Ox 98% on R/A; jd3 21:54 BP 103 / 58; Pulse 115; Resp 18 S; Pulse Ox 97% on R/A; jd3 ED Course: 16:52 Patient arrived in ED. bp 16:53 Gilmer Walker, RN is Primary Nurse. bp 16:54 Triage completed. bp 16:58 Yessica Gillette FNP-C [facility]. kb 16:58 Bennett Allen MD is Attending Physician. kb 17:00 Patient has correct armband on for positive identification. Bed in low position. Call mh5 light in reach. Side rails up X2. Pulse ox on. NIBP on. 17:00 Maintain EMS IV. Dressing intact. Good blood return noted. Site clean \T\ dry. Gauge \T\ bp site: 22 GAUGE R FA. 17:45 EKG done, by technical architect. reviewed by Yessica HULL. sm3 17:58 Hip Left 2 View XRAY In Process Unspecified. EDMS 17:58 Chest Single View XRAY In Process Unspecified. EDMS 19:42 Arm band placed on. jd3 20:[address] vm2 21:10 Nick Alexandre MD is Hospitalizing Provider. kb 21:14 Inserted saline lock: 22 gauge in left antecubital area, using aseptic technique. Blood mt collected. 21:22 CT completed. Patient tolerated procedure well. vm2 21:23 CT Chest For PE Angio In Process Unspecified. EDMS 21:55 No provider procedures requiring assistance completed. Patient admitted, IV remains in jd3 place. Administered Medications: 18:10 Drug: Metoprolol 5 mg Route: IVP; Site: right forearm; bp 21:55 Follow up: Response: No adverse reaction jd3 18:50 Drug: fentaNYL (PF) 25 mcg Route: IVP; Site: right forearm; bp 21:55 Follow up: Response: No adverse reaction jd3 18:50 Drug: Metoprolol 25 mg Route: PO; bp 21:55 Follow up: Response: No adverse reaction jd3 19:06 Drug: NS 0.9% 1000 ml Route: IV; Rate: 1 bolus; Site: right forearm; bp 21:55 Follow up: Response: No adverse reaction; IV Status: Completed infusion; IV Intake: jd3 1000ml 19:06 Drug: Metoprolol 5 mg Route: IVP; Site: right forearm; bp 21:56 Follow up: Response: No adverse reaction jd3 20:29 Drug: Metoprolol 5 mg Route: IVP; Site: right antecubital; jd3 21:56 Follow up: Response: No adverse reaction jd3 21:40 Drug: Digoxin 0.5 mg Route: IVP; Site: right antecubital; jd3 21:56 Follow up: Response: No adverse reaction jd3 21:44 Drug: Aurora 10 mg-325 mg 1 tabs Route: PO; jd3 21:56 Follow up: Response: No adverse reaction jd3 Intake: 21:55 IV: 1000ml; Total: 1000ml. jd3 Outcome: 21:11 Decision to Hospitalize by Provider. kb 22:04 Admitted to Tele accompanied by tech, via stretcher, room 422, with chart, Report jd3 called to Najma DUNN 22:04 Condition: stable 22:22 Instructed on the need for admit, Demonstrated understanding of instructions. jd3 22:35 Patient left the ED. jd3 Signatures: Dispatcher [employer] EDMS Yessica Gillette, MEDICAL SERVICES MANAGER-C MEDICAL SERVICES MANAGER-Gege Collins 5 Elvira Schneider 2 Yari Jarrett mt, Jonathon, RN RN jGilmer Candelario RN RN Ira Thapa 3 Corrections: (The following items were deleted from the chart) 18:09 17:00 BP 125 / 72; Pulse 66bpm; Resp 18bpm; Pulse Ox 97% RA; mh5 bp 21:15 21:14 Inserted saline lock: 20 gauge in left antecubital area, using aseptic technique. mt Blood collected. mt
--- NOTE | 2018-09-28 21:12 | EDPHYS ---
Physician Documentation [facility] Name: Saarh Betancourt Age: 73 yrs Sex: Female : 1945 Arrival Date: 09/28/2018 Time: 16:52 Bed 20 Private MD: ED Physician Bennett Allen HPI: 09/28 20:40 This 73 yrs old Female presents to ER via EMS with complaints of Hip Pain. kb 20:40 The patient or guardian reports pain. that occurred at home, sustained from unknown kb reason, There is no obvious deformity, The patient is able to bear partial body weight. There is no radiation of the patient's discomfort. The complaints affect the left hip and left iliac crest. Onset: The symptoms/episode began/occurred just prior to arrival. Modifying factors: The symptoms are alleviated by nothing, the symptoms are aggravated by nothing. Associated signs and symptoms: Pertinent positives: chest pain, shortness of breath, Pertinent negatives: abdominal pain, altered mental status, anorexia, diarrhea, dizziness, dysuria, fever, headache, incontinence, nausea, vomiting, weakness. Severity of symptoms: At their worst the symptoms were mild, moderate, in the emergency department the symptoms are unchanged. The patient has not experienced similar symptoms in the past. The patient has not recently seen a physician. Pt reports she was sitting in a chair, eating pie and had sudden onset of shortness of breath, chest pressure and felt like she was going to pass out. Then she started having left hip pain. . Historical: - Allergies: 17:00 Demerol; bp 17:00 Indocin; bp 17:00 Niacin; bp 17:00 rosuvastatin calcium; bp - Home Meds: 17:00 Synthroid 50 mcg Oral tab 1 tab once daily [Active]; Neurontin 300 mg Oral cap 1 cap 3 bp times per day [Active]; venlafaxine 75 mg oral cp24 [Active]; Requip 2 mg Oral tab 1 tab 3 times per day [Active]; Tricor 145 mg Oral tab 1 tab once daily [Active]; Nexium 40 mg Oral cpDR 1 cap once daily [Active]; Xarelto 10 mg oral tab 1 tab once daily [Active]; nifedipine 30 mg Oral TbER 1 tab once daily [Active]; Toprol XL 200 mg Oral Tb24 [Active]; [place] 10-325 mg Oral tab 1 tab every 6 hours [Active]; morphine 45 mg oral CM24 1 cap twice a day [Active]; Combigan 0.2-0.5 % ophthalmic drop 1 drop every 12 hours [Active]; Lumigan 0.01 % ophthalmic drop daily [Active]; - PMHx: 17:00 BREAST CA; Hyperlipidemia; Hypertension; GERD; Atrial Fib; bp - Immunization history:: Adult Immunizations up to date. - Social history:: Smoking status: Patient/guardian denies using tobacco. - Ebola Screening: : Patient negative for fever greater than or equal to 101.5 degrees Fahrenheit, and additional compatible Ebola Virus Disease symptoms Patient denies exposure to infectious person Patient denies travel to an Ebola-affected area in the 21 days before illness onset No symptoms or risks identified at this time. ROS: 20:38 Constitutional: Negative for fever, chills, and weight loss, ENT: Negative for injury, kb pain, and discharge, Neck: Negative for injury, pain, and swelling, Abdomen/GI: Negative for abdominal pain, nausea, vomiting, diarrhea, and constipation, Skin: Negative for injury, rash, and discoloration, Neuro: Negative for headache, weakness, numbness, tingling, and seizure. 20:38 Cardiovascular: Positive for chest pain, Negative for edema, orthopnea, palpitations, paroxysmal nocturnal dyspnea. 20:38 Respiratory: Positive for shortness of breath, Negative for cough, dyspnea on exertion, hemoptysis, orthopnea, pleurisy, sputum production, wheezing. 20:38 MS/extremity: Positive for pain, of the left hip and left iliac crest. Exam: 20:33 Constitutional: This is a well developed, well nourished patient who is awake, alert, kb and in no acute distress. Head/Face: Normocephalic, atraumatic. Chest/axilla: Normal chest wall appearance and motion. Nontender with no deformity. No lesions are appreciated. Respiratory: Lungs have equal breath sounds bilaterally, clear to auscultation and percussion. No rales, rhonchi or wheezes noted. No increased work of breathing, no retractions or nasal flaring. Abdomen/GI: Soft, non-tender, with normal bowel sounds. No distension or tympany. No guarding or rebound. No evidence of tenderness throughout. Skin: Warm, dry with normal turgor. Normal color with no rashes, no lesions, and no evidence of cellulitis. Neuro: Awake and alert, GCS 15, oriented to person, place, time, and situation. Cranial nerves II-XII grossly intact. Motor strength 5/5 in all extremities. Sensory grossly intact. Cerebellar exam normal. Normal gait. 20:33 Cardiovascular: Rate: tachycardic, actual rate is 127 bpm, Rhythm: irregularly irregular, Heart sounds: S1, S2. 20:33 Musculoskeletal/extremity: Extremities: grossly normal except: noted in the left iliac crest and left hip: ROM: intact in all extremities, Circulation is intact in all extremities. Sensation intact. Vital Signs: 17:00 BP 125 / 72; Pulse 66; Resp 18; Temp 98; Pulse Ox 97% on R/A; Weight 72.57 kg (R); bp 18:48 BP 103 / 80; Pulse 105; Resp 11; Pulse Ox 99% on R/A; mh5 19:04 BP 126 / 82; Pulse 135; Resp 18; Pulse Ox 100% ; bp 19:42 BP 101 / 70; Pulse 127; Resp 18 S; Pulse Ox 98% on R/A; jd3 20:45 BP 102 / 52; Pulse 125; Resp 18 S; Pulse Ox 98% on R/A; jd3 21:54 BP 103 / 58; Pulse 115; Resp 18 S; Pulse Ox 97% on R/A; jd3 MDM: 16:58 Patient medically screened. 20:33 Data reviewed: vital signs, nurses notes. Data interpreted: Pulse oximetry: on room air kb is 98 %. Interpretation: normal. Counseling: I had a detailed discussion with the patient and/or guardian regarding: the historical points, exam findings, and any diagnostic results supporting the discharge/admit diagnosis, lab results, radiology results, the need for further work-up and treatment in the hospital. 20:54 Physician consultation: Nick Alexandre MD was contacted at 20:54, regarding admission, to the telemetry unit. and will see patient in inpatient room, would like further tests performed, CT scan. 09/28 17:47 Order name: Basic Metabolic Panel; Complete Time: 18:49 kb 09/28 17:47 Order name: CBC with Diff; Complete Time: 18:51 kb 09/28 17:47 Order name: Magnesium; Complete Time: 18:49 kb 09/28 17:47 Order name: NT PRO-BNP; Complete Time: 18:49 kb 09/28 17:47 Order name: PT-INR; Complete Time: 18:50 kb 09/28 17:47 Order name: Troponin (emerg Dept Use Only); Complete Time: 18:49 kb 09/28 17:28 Order name: Hip Left 2 View XRAY; Complete Time: 18:10 kb 09/28 17:28 Order name: Chest Single View XRAY; Complete Time: 18:18 kb 09/28 20:51 Order name: CT Chest For PE Angio; Complete Time: 21:42 ar5 09/28 21:09 Order name: Urine Dipstick--Ancillary (enter results); Complete Time: 21:22 ar5 09/28 17:28 Order name: EKG; Complete Time: 17:29 kb 09/28 17:28 Order name: EKG - Nurse/Tech; Complete Time: 18:00 kb 09/28 17:47 Order name: Cardiac monitoring; Complete Time: 18:00 kb 09/28 17:47 Order name: IV Saline Lock; Complete Time: 18:20 kb 09/28 17:47 Order name: Labs collected and sent; Complete Time: 18:20 kb 09/28 17:47 Order name: O2 Per Protocol; Complete Time: 18:00 kb 09/28 17:47 Order name: O2 Sat Monitoring; Complete Time: 18:00 kb Administered Medications: 18:10 Drug: Metoprolol 5 mg Route: IVP; Site: right forearm; bp 21:55 Follow up: Response: No adverse reaction jd3 18:50 Drug: fentaNYL (PF) 25 mcg Route: IVP; Site: right forearm; bp 21:55 Follow up: Response: No adverse reaction jd3 18:50 Drug: Metoprolol 25 mg Route: PO; bp 21:55 Follow up: Response: No adverse reaction jd3 19:06 Drug: NS 0.9% 1000 ml Route: IV; Rate: 1 bolus; Site: right forearm; bp 21:55 Follow up: Response: No adverse reaction; IV Status: Completed infusion; IV Intake: jd3 1000ml 19:06 Drug: Metoprolol 5 mg Route: IVP; Site: right forearm; bp 21:56 Follow up: Response: No adverse reaction jd3 20:29 Drug: Metoprolol 5 mg Route: IVP; Site: right antecubital; jd3 21:56 Follow up: Response: No adverse reaction jd3 21:40 Drug: Digoxin 0.5 mg Route: IVP; Site: right antecubital; jd3 21:56 Follow up: Response: No adverse reaction jd3 21:44 Drug: [place] 10 mg-325 mg 1 tabs Route: PO; jd3 21:56 Follow up: Response: No adverse reaction jd3 Disposition: 20:50 I agree with the assessment and plan of care. gino Disposition: 09/28/18 21:11 Hospitalization ordered by Nick Alexandre for Observation. Preliminary diagnosis are Unspecified atrial fibrillation - wtih RVR, Dyspnea, Pain in left hip. - Bed requested for Telemetry/MedSurg (observation). - Status is Observation. jd3 - Condition is Stable. - Problem is new. - Symptoms have improved. UTI on Admission? No Signatures: Dispatcher [employer] EDMS Yessica Gillette, MIKE-C TISSUE TECHNOLOGIST-Philip Raphael MD MD cha Davies, Jonathon, RN RN jd3 Peltier, Brian, RN RN bp Robles, Autumn ar5 Corrections: (The following items were deleted from the chart) 21:44 21:11 Hospitalization Ordered by Nick Alexandre MD for Observation. Preliminary diagnosis ar5 is Unspecified atrial fibrillation - wtih RVR; Dyspnea; Pain in left hip. Bed requested for Telemetry/MedSurg (observation). Status is Observation. Condition is Stable. Problem is new. Symptoms have improved. UTI on Admission? No. kb 22:35 21:44 09/28/2018 21:11 Hospitalization Ordered by Nick Alexandre MD for Observation. jd3 Preliminary diagnosis is Unspecified atrial fibrillation - wtih RVR; Dyspnea; Pain in left hip. Bed requested for Telemetry/MedSurg (observation). Status is Observation. Condition is Stable. Problem is new. Symptoms have improved. UTI on Admission? No. ar5
[2018-09-28 21:17] LABS: Urine Blood NEGATIVE (NEG); Urine Glucose NEGATIVE (NEG); Urine Protein NEGATIVE (NEG); Urine Specific Gravity 1.015 (1.005-1.030)
[2018-09-28] MEDS ORDERED: DIGOXIN 0.25 MG/ML AMP ONE (21:27)
--- NOTE | 2018-09-28 21:40 | RAD REPORT ---
EXAM DESCRIPTION: CT - Chest For Pe Angio - 09/28/2018 9:23 pm CLINICAL HISTORY: Chest pain. DYSPNEA COMPARISON: Chest For Pe Angio dated 11/18/2017; Chest Abdomen Pelvis W Cont dated 08/29/2018 TECHNIQUE: CT angiogram of the pulmonary arteries was performed with MIP. All CT scans are performed using dose optimization technique as appropriate and may include automated exposure control or mA/KV adjustment according to patient size. FINDINGS: No evidence of pulmonary thromboembolism. No acute aortic finding demonstrated. Ground-glass opacity is present throughout both lungs likely representing interstitial pulmonary cyndy a. The patient's known small left-sided pulmonary nodules are largely obscured by respiratory motion artifact the ground-glass opacities. Small loculated left pleural effusion is noted. Axillary lymphadenopathy is present bilaterally, on the left measuring 3.5 cm and on the right measur ing 3.4 cm. This is likely metastatic in unchanged since 08/29/2018 prior study. Mottled appearance to the axial skeleton is present compatible with bony metastatic disease, also unc hanged since recent comparative study. IMPRESSION: No evidence of pulmonary thromboembolism. Mild interstitial pulmonary edema is present with small loculated left pleural effusion. Enlarged metastatic lymphadenopathy again noted, stable. Bony metastatic disease is again noted, stable.
[2018-09-28] MEDS ORDERED: HYDROCODONE/APAP 10/325 TAB ONE (21:52)
[2018-09-28 23:18] VITALS: BMI 28.3
[2018-09-29] MEDS: HYDROCODONE/APAP 10/325 TAB PO PRN ×4 (00:51→21:32)
[2018-09-29 04:08] LABS: Absolute Lymphocytes (CBC) 0.4 K/uL (0.7-4.9); Absolute Monocytes 0.3 K/uL (0.1-1.3); Absolute Neutrophil 2.8 K/uL (1.8-8.0); Basophils % 0.6 % (0-1.3); Eosinophils % 2.3 % (0-4.4); MPV 7.3 fL (7.6-11.3); RBC Red Blood Cell Count 2.04 M/uL (3.86-4.86)
[2018-09-29 04:10] LABS: Hematocrit 20.9 % (36.0-45.0)
[2018-09-29 04:19] LABS: Potassium 4.4 mmol/L (3.5-5.1)
[2018-09-29] MEDS ORDERED: DIPHENHYDRAMINE 50 MG/ML VIAL IV ONE (04:56)
[2018-09-29] MEDS ORDERED: METHYLPREDNISOLONE 40 MG INJ IV ONE (04:57)
--- NOTE | 2018-09-29 06:24 | EKG ---
Test Date: 2018-09-29 Test Time: 02:34:45 [place] Operator: RT MEASUREMENT RESULTS: Intervals: Rate: 45 IL: 150 QRSD: 70 QT: 438 QTc: 378 [place]: P: 42 IL: 150 QRS: 0 T: 60 INTERPRETIVE STATEMENTS: Marked sinus bradycardia Low voltage QRS Abnormal ECG Compared to ECG 09/28/2018 17:37:04 Low QRS voltage now present Atrial fibrillation no longer present ST (T wave) deviation no longer present Electronically Signed On 09-29-18 06:24:20 HEEL SLICKER by Leo Benz
--- NOTE | 2018-09-29 06:27 | EKG ---
Test Date: 2018-09-28 Test Time: 17:37:04 Supervisor Nurse: SUKHJINDER MEASUREMENT RESULTS: Intervals: Rate: 126 [place]: QRSD: 76 QT: 310 QTc: 448 [place]: P: [place]: QRS: 10 T: 66 INTERPRETIVE STATEMENTS: Atrial fibrillation with rapid ventricular response Nonspecific ST abnormality Abnormal ECG Compared to ECG 06/25/2018 17:01:46 ST (T wave) deviation now present Sinus rhythm no longer present Electronically Signed On 09-29-18 06:27:15 ASSISTANT TODDLER TEACHER by Leo Benz
[2018-09-29] MEDS: GABAPENTIN 300 MG CAP PO SCH ×4 (09:00→22:31)
[2018-09-29] MEDS ORDERED: NA CHLORIDE 0.9% 250 ML ONE (09:08)
[2018-09-29] MEDS: VERZENIO 150 MG PO SCH ×2 (09:26→20:28)
[2018-09-29] MEDS: LEVOTHYROXINE SOD 0.05 MG TABLET PO SCH (09:26)
[2018-09-29] MEDS ORDERED: FUROSEMIDE 20 MG/ 2ML VIAL IV ONE (12:40)
--- NOTE | 2018-09-29 12:40 | CON ---
Date of Consultation: 09/29/2018 Reason For Consultation: Atrial fibrillation and bradycardia. History Of Present Illness: Ms. Betancourt is a 73-year-old white woman. She has a history of chronic atrial fibrillation. 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 She basically came in with severe pain at her hips and because of that she was tachycardic. They gave her digoxin IV and metoprolol IV, n.p.o. in the [facility] room, and they gave her [place] for pain relief. After her pain resolved, she became very bradyc ardic with 4 second and 8 second pauses. Beta blockers were held. She was sent to the ICU for furth er evaluation and treatment. She denies any chest pain or syncope, but during her pauses she was diz zy. Now she has a heart rate of 50, sinus bradycardia. Allergies: INDOCIN, NIACIN, CRESTOR, AND DEMEROL. Review of Systems: Negative. Social History: Negative. Family History: Noncontributory. Medications At Home: Include TriCor, Requip, multiple pain medications, Neurontin, metoprolol, thyro id, Procardia. Physical Examination: General: She was in no acute distress. She was in sinus bri at 50, afebrile. HEENT: Negative. Neck: Supple without any bruit, lymphadenopathy, JVD, or thyromegaly. Chest: Clear to auscultation and percussion. Cardiac: Revealed bradycardia with aortic sclerosis murmur. No gallops or rubs. Abdomen: Benign. Extremities: Revealed no clubbing, cyanosis, or edema. Diagnostic Data: Showed atrial fibrillation at 105 prior to her treatment, now she is in sinus bri cardia. Hemoglobin was 7.2. BNP was 1256. Hip x-ray showed metastatic disease. CT angiogram showe d lymphadenopathy and bilateral axillary area with small pleural effusion. Impression And Plan: Pauses and bradycardia that have resolved all that secondary to IV beta hasmukh s and digoxin and beta blockers. She is now pain free and sinus bradycardia and I will continue her present regimen without the metoprolol. She can certainly continue her other medication including th yroid, Neurontin, TriCor, Requip, and her pain medicine. I will still hold her Procardia for now, he r pressure is only 110/70. We can always restart that later. She is not a candidate for anticoagula tion because of her severe anemia and metastatic breast cancer. I think 2 units of blood transfusion is reasonable. We will give her some Lasix in between that. We will give her some Tylenol and some steroid prior to her transfusions as well. Her other problems including gastroesophageal reflux dis ease, hypertension, and dyslipidemia, all that is stable at this point. I will continue to follow Ms Rena Betancourt. ELMA/LANIE Voice ID: [id number] Report ID: [id number]
--- NOTE | 2018-09-29 12:58 | P.HP ---
Certification for Inpatient Patient admitted to: Observation With expected LOS: <2 Midnights Practitioner: I am a practitioner with admitting privileges, knowledge of patient current condition, hospital course, and medical plan of care. Services: Services provided to patient in accordance with Admission requirements found in Title 42 Section 412.3 of the Code of Federal Regulations Patient History Date of Service: 09/29/18 Reason for admission: L HIP PAIN. History of Present Illness: MS. SHORT CAME FOR L HIP PAIN THAT WAS UNBEARABLE. SHE HAS METASTATIC BREAST CANCER. SHE REFUSES TO BE ON HOSPICE SHE WANTS PALLIATIVE CHEMO. SHE WAS FOUND TO BE IN A FIB. GOT LOPRESSOR IV AND ORAL FROM [place] IN ER AND BECAME BRADYCARDIC. SHE WAS WOOZY WITH HR DOWN TO 30S AND THE NURSES FROM THE FLOOR STARTED TO CALL ME AT 4 AM. WE MOVED HER TO ICU FOR SUPERVISION. SHE IS STABLE. NOW THAT B EMILIANO EFFECT IS RUNNING OUT THE HR IS IMPROVING. SHE IS AT HER BASELINE. Allergies meperidine HCl [From Demerol] Allergy (Intermediate, Verified 05/27/12 13:21) Rash indomethacin [From Indocin] Adverse Reaction (Intermediate, Verified 05/27/12 13 :21) headache indomethacin sodium [From Indocin] Adverse Reaction (Intermediate, Verified 26/09 13:21) headache niacin [From Niaspan Starter Pack] Adverse Reaction (Intermediate, Verified 26/09 13:22) syncope rosuvastatin calcium [From Crestor] Adverse Reaction (Intermediate, Verified 26/09 13:22) muscle cramps Home Medications: Calcium Carbonate [Calcium] 1,200 mg PO DAILY 08/14/15 Cholecalciferol (Vitamin D3) [Vitamin D3] 1,000 unit PO DAILY 08/14/15 Esomeprazole Mag Trihydrate [Nexium] 40 mg PO DAILY 08/14/15 Fenofibrate [Tricor*] 145 mg PO DAILY 08/14/15 Gabapentin [Neurontin*] 100 mg PO TID 08/14/15 Hydrocodone/Acetaminophen [[place] 5-325 Tablet] 1 tab PO Q4H PRN 08/14/15 Levothyroxine [Synthroid*] 50 mcg PO DAILY 08/14/15 Metoprolol Succinate 50 mg PO DAILY 08/14/15 Morphine Sulfate [Morphine Sulfate ER] 15 mg PO Q12H 08/14/15 Nifedipine Xl [Procardia Xl*] 30 mg PO DAILY 08/14/15 Ropinirole HCl [Requip*] 1 mg PO TID 08/14/15 Venlafaxine HCl [Venlafaxine HCl ER] 75 mg PO DAILY 08/14/15 Xgava 1 stick SQ ONCE 08/14/15 Abemaciclib [Verzenio] 150 mg PO BID 09/29/18 Bimatoprost [Lumigan Opthalmic Drops*] 1 drop OPTH BEDTIME 09/29/18 Brimonidine Tartrate/Timolol [Combigan 0.2%-0.5% Eye Drops] 1 drop OPTH BID Docusate Sodium 250 mg PO DAILY 09/29/18 Rivaroxaban [Xarelto*] 1 tab PO DAILY 09/29/18 - Past Medical/Surgical History Has patient received pneumonia vaccine in the past: Yes Diabetic: No -: Breast Cancer 4th Stage -: Raynaud Syndrome -: HTN -: Atrial Fibrillation -: GErd -: HLD -: blood clot 04/08/13 -: Cholecystectomy -: Cataract Sx -: -: Bunion Sx - Family History Father -: Heart disease, Hypertension, Lung disease, Cancer, Other (see notes) Notes: Emphysema, Colon Cancer, Allergies, COPD, CHF Mother -: Heart disease, Hypertension, Cancer Notes: Colon Cancer, CHF, Gallbladder issues - Social History Smoking Status: Never smoker Alcohol use: No CD- Drugs: No Caffeine use: Yes Place of Residence: Home Review of Systems 10-point ROS is otherwise unremarkable General: Weakness Physical Examination - Vital Signs Temperature: 98.7 F Blood Pressure: 130/57 Pulse: 46 Respirations: 17 Pulse Ox (%): 97 - Physical Exam General: Alert, Mild distress HEENT: Atraumatic, PERRLA, Mucous membr. moist/pink, EOMI, Sclerae nonicteric Neck: Supple, 2+ carotid pulse no bruit, No LAD, Without JVD or thyroid abnormality Respiratory: Clear to auscultation bilaterally, Normal air movement Cardiovascular: Regular rate/rhythm, Normal S1 S2 Gastrointestinal: Normal bowel sounds, No tenderness Musculoskeletal: No tenderness Integumentary: No rashes Neurological: Normal gait, Normal speech, Normal strength at 5/5 x4 extr, Normal tone, Normal affect Lymphatics: No axilla or inguinal lymphadenopathy - Studies Laboratory Data (last 24 hrs) 09/29/18 03:47: Sodium 140, Potassium 4.4, BUN 12, Creatinine 1.03, Glucose 104 09/29/18 03:47: WBC 3.6 L D, Hgb 7.2 L*, Hct 20.9 L*, Plt Count 169 09/29/18 03:47: Troponin I 0.02 09/28/18 23:04: Troponin I 0.02 09/28/18 18:20: PT 16.9 H, INR 1.43 09/28/18 18:20: WBC 3.1 L, Hgb 7.7 L*, Hct 22.2 L, Plt Count 198 09/28/18 18:20: Sodium 140, Potassium 4.0, BUN 13, Creatinine 1.01, Glucose 139 H, Magnesium 2.2 Assessment and Plan - Problems (Diagnosis) (1) Bradycardia Current Visit: Yes Status: Acute Plan: FROM MEDS. SHOULD BE OKAY WITHOUT PPM. (2) Atrial fibrillation with rapid ventricular response Current Visit: Yes Status: Acute Plan: ABOVE. SHE IS ON LOW DOSE XARELTO TO PREVENT PE BUT NOT ABLE TO TOLERATE IT. HER HG IS DOWN AGAIN AND WILL NEED BLOOD TRANSFUSION. (3) Breast cancer Onset Date: 08/15/15 Current Visit: No Status: Chronic Plan: SHE HAS END STAGE BR CANCER WITH METS TO BONES. SHE IS ON PALLIATIVE THERAPY AND NOT CANDIDATE FOR ANY INVASIVE TESTS. HER HG CAN BE DOWN FROM CHEMO. - Advance Directives Does patient have a Living Will: Yes Does patient have a Durable POA for Healthcare: Yes
--- NOTE | 2018-09-29 15:38 | ECHO ---
HEIGHT: 5 ft 2 in WEIGHT: 155 lb 3.2 oz DATE OF STUDY: 09/29/[address]: Alex Naqvi MD 2-DIMENSIONAL: YES M.MODE: YES DOPPLER: YES COLOR FLOW: YES TDS: NO PORTABLE: YES DEFINITY: NO BUBBLE STUDY: NO DIAGNOSIS: ATRIAL FIBRILLATION CARDIAC HISTORY: CATHERIZATION: NO SURGERY: NO PROSTHETIC VALVE: NO PACEMAKER: NO MEASUREMENTS (cm) DIASTOLIC (NORMALS) SYSTOLIC (NORMALS) IVSd 1.2 (0.6-1.2) LA Diam 3.4 (1.9-4.0) LVEF 78% LVIDd 4.3 (3.5-5.7) LVIDs 2.3 (2.0-3.5) %FS 47% LVPWd 1.2 (0.6-1.2) Ao Diam 2.8 (2.0-3.7) 2 DIMENSIONAL ASSESSMENT: RIGHT ATRIUM: NORMAL LEFT ATRIUM: NORMAL RIGHT VENTRICLE: NORMAL LEFT VENTRICLE: NORMAL TRICUSPID VALVE: NORMAL MITRAL VALVE: MITRAL ANNULAR CALCIFICATION PULMONIC VALVE: NORMAL AORTIC VALVE: SCLEROSIS PERICARDIAL EFFUSION: NONE AORTIC ROOT: NORMAL LEFT VENTRICULAR WALL MOTION: NORMAL DOPPLER/COLOR FLOW: MILD TRICUSPID REGURGITATION AND MITRAL REGURGITATION. COMMENTS: MILD MITRAL REGURGITATION AND TRICUSPID REGURGITATION. MITRAL ANNULAR CALCIFICATION. AORTIC SCLEROSIS. NORMAL LEFT VENTRICULAR SIZE AND FUNCTION. TECHNOLOGIST: ERIK HERNANDEZ
[2018-09-29 18:56] LABS: Hematocrit 31.7 % (36.0-45.0)
[2018-09-29] MEDS ORDERED: ROPINIROLE HCL 1 MG TAB PO SCH (21:00)
[2018-09-30] MEDS: HYDROCODONE/APAP 10/325 TAB PO PRN ×3 (04:58→11:25)
[2018-09-30] MEDS: LEVOTHYROXINE SOD 0.05 MG TABLET PO SCH (06:38)
[2018-09-30 07:50] VITALS: O2SAT 97
[2018-09-30] MEDS: GABAPENTIN 300 MG CAP PO SCH ×2 (10:10→11:25)
[2018-09-30] MEDS: VERZENIO 150 MG PO SCH (10:11)
[2018-09-30] MEDS ORDERED: ONDANSETRON 4 MG/2 ML VIAL IV PRN (10:20)
[2018-09-30] MEDS ORDERED: ONDANSETRON 4 MG (ODT) TAB PO PRN (11:02)
[2018-09-30 13:19] VITALS: BP 154/62; TEMP 97.9
--- NOTE | 2018-09-30 13:30 | P.DS ---
Admission Date: 09/29/18 Discharge Date: 09/30/18 Disposition: ROUTINE DISCHARGE Discharge Condition: FAIR Reason for Admission: L HIP PAIN. - Problems (1) Bradycardia Onset Date: 09/30/18 Current Visit: Yes Status: Acute (2) Atrial fibrillation with rapid ventricular response Onset Date: 09/30/18 Current Visit: Yes Status: Acute (3) Breast cancer Onset Date: 08/15/15 Current Visit: No Status: Chronic Brief History of Present Illness: MS. SHORT CAME FOR L HIP PAIN THAT WAS UNBEARABLE. SHE HAS METASTATIC BREAST CANCER. SHE REFUSES TO BE ON HOSPICE SHE WANTS PALLIATIVE CHEMO. SHE WAS FOUND TO BE IN A FIB. GOT LOPRESSOR IV AND ORAL FROM [place] IN ER AND BECAME BRADYCARDIC. SHE WAS WOOZY WITH HR DOWN TO 30S AND THE NURSES FROM THE FLOOR STARTED TO CALL ME AT 4 AM. WE MOVED HER TO ICU FOR SUPERVISION. SHE IS STABLE. NOW THAT B EMILIANO EFFECT IS RUNNING OUT THE HR IS IMPROVING. SHE IS AT HER BASELINE. MS. SHORT HAS ADVANCE BREAST CANCER. SHE HAD PAIN IN THE HIP AND REPORTS TO ER. SHE GOT LOPRESSOR IV BY ANGELICA IN ER A FEW TIMES. ER DOCTOR SAW HER WHEN I ASKED HER TO BE SEEN. SHE HAD BRADYCARDIA FROM MEDS. I ADVISED HER TO TAKE METOPROLOL ONLY IF HR GOES UP BEYOND 90. SHE STILL WANTS CHEMO FOR PALLIATIVE THERAPY AND SO WILL NOT BE ON HOSPICE. Vital Signs/Physical Exam: Temp Pulse Resp BP Pulse Ox 97.9 F 56 18 154/62 H 97 09/30/18 12:00 09/30/18 12:00 09/30/18 12:00 09/30/18 12:00 09/30/18 12:00 Laboratory Data at Discharge: WBC 3.6 K/uL (4.3-10.9) L D 09/29/18 03:47 Hgb 11.0 g/dL (12.0-15.0) L D 09/29/18 18:30 Hct 31.7 % (36.0-45.0) L D 09/29/18 18:30 Plt Count 169 K/uL (152-406) 09/29/18 03:47 PT 16.9 SECONDS (9.5-12.5) H 09/28/18 18:20 INR 1.43 09/28/18 18:20 Sodium 140 mmol/L (136-145) 09/29/18 03:47 Potassium 4.4 mmol/L (3.5-5.1) 09/29/18 03:47 BUN 12 mg/dL (7-18) 09/29/18 03:47 Creatinine 1.03 mg/dL (0.55-1.3) 09/29/18 03:47 Glucose 104 mg/dL (74-106) 09/29/18 03:47 Magnesium 2.2 mg/dL (1.8-2.4) 09/28/18 18:20 Troponin I 0.02 ng/mL (0.0-0.045) 09/29/18 03:47 Home Medications: Calcium Carbonate [Calcium] 1,200 mg PO DAILY 08/14/15 Cholecalciferol (Vitamin D3) [Vitamin D3] 1,000 unit PO DAILY 08/14/15 Esomeprazole Mag Trihydrate [Nexium] 40 mg PO DAILY 08/14/15 Fenofibrate [Tricor*] 145 mg PO DAILY 08/14/15 Gabapentin [Neurontin*] 100 mg PO TID 08/14/15 Hydrocodone/Acetaminophen [[place]ota 5-325 Tablet] 1 tab PO Q4H PRN 08/14/15 Levothyroxine [Synthroid*] 50 mcg PO DAILY 08/14/15 Morphine Sulfate [Morphine Sulfate ER] 15 mg PO Q12H 08/14/15 Nifedipine Xl [Procardia Xl*] 30 mg PO DAILY 08/14/15 Ropinirole HCl [Requip*] 1 mg PO TID 08/14/15 Venlafaxine HCl [Venlafaxine HCl ER] 75 mg PO DAILY 08/14/15 Xgava 1 stick SQ ONCE 08/14/15 Abemaciclib [Verzenio] 150 mg PO BID 09/29/18 Bimatoprost [Lumigan Opthalmic Drops*] 1 drop OPTH BEDTIME 09/29/18 Brimonidine Tartrate/Timolol [Combigan 0.2%-0.5% Eye Drops] 1 drop OPTH BID Docusate Sodium 250 mg PO DAILY 09/29/18 Rivaroxaban [Xarelto*] 1 tab PO DAILY 09/29/18 Hydrocodone 10/APAP 325 [Bogota 10/325*] 1 tab PO Q6H PRN tab 12/28/18 Levothyroxine [Synthroid*] 0.05 mg PO DAILYAC tablet 09/30/18 Metoprolol Succinate 25 mg PO DAILY #30 tab.er.24h 09/30/18 Ropinirole HCl [Requip*] 2 mg PO BEDTIME tab 09/30/18 Verzenio 0 mg PO BID 09/30/18 New Medications: Metoprolol Succinate 25 mg PO DAILY #30 tab.er.24h
== END 2018-09-30 14:28 | disposition home health service (06) | DRG 309 ==
LOC: ER 16:46 → ERHOLD 21:12 → 4TH 22:07 → 3RD-ICU 09-29 05:40 → OBSVTOIN 09-29 08:09 → 2ND 09-30 05:05
PROVIDERS: ADMIT Internal Medicine; ATTEND Internal Medicine
DX: R00.1 Bradycardia, unspecified (principal); C79.51 Secondary malignant neoplasm of bone; I48.91 Unspecified atrial fibrillation; C50.919 Malignant neoplasm of unspecified site of unspecified female breast; I10 Essential (primary) hypertension; E78.5 Hyperlipidemia, unspecified
CPT/HCPCS: 36415; 36430; 71045; 71275; 80048; 81003; 83735; 83880; 84484; 85014; 85018; 85025; 85610; 86850; 86900; 86901; 93005; 93306; 99285; J1160; J1940; J2405; J2920; J3010; J7030; P9016; Q9967

== ENCOUNTER 2018-10-24 10:13 | Observation (INO) | payer OTHER ==
--- OUTSIDE RECORDS SUMMARY | 2018-10-24 10:17 | XMS REPORT | Clinical Summary ---
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/2017 Hypothyroid 02/01/2017 Essential hypertension 02/01/2017 Mood disorder 02/01/2017 Metastatic breast cancer 01/13/2017 Encounters Date Type Specialty Care Team Description 06/25/2018 - [facility], Paroxysmal atrial fibrillation (HCC); 06/27/2018 Encounter Medicine Trudy Jacobson, Malignant neoplasm of female breast, unspecified estrogen receptor status, unspecified laterality, unspecified site of breast (HCC); Essential hypertension; Alejandra Vieyra Fall, initial encounter; Carmelita Sarabia, History of DVT (deep vein thrombosis); Leptomeningeal disease; Danika Clements dedicated intermodal truck driver (current) use of anticoagulants; MD Kathy Mood disorder (HCC); Spine metastasis (HCC); Subdural hematoma (HCC); Injury of head, initial encounter; Supratherapeutic INR after 10/23/2017 Social History Tobacco Use Types Packs/Day Years [...] procedure are in the results section. after 10/23/2017 Results TRANSFUSION SERVICE REPORT - SCAN (06/28/2018 6:02 PM CDT)Only the most recent of2 resultswithin the time period is included. Narrative Performed At RHYTHM STRIP - SCAN (06/28/2018 11:20 AM CDT) Narrative Performed At Prepare plasma (06/27/2018 11:54 PM CDT) Unit ABO A Pos SAFETRACE [place] UNIT NUMBER [id number] [place] Status TRANSFUSED [place]AF[place]ACE [place] Blood Bank Product FFP SAFETRACE [place] PRODUCT CODE [id number] SAFET[place]ACE [place] Specimen Blood Performing Organization Address City/State/Zipcode Phone Number SAFETRACE TX CT brain without IV contrast (06/27/2018 7:04 AM CDT)Only the most recent of3 resultswithin the time period is included. Narrative Performed At FINAL REPORT [facility] CT head without contrast. Comparisons: June [...] MD Report Verified Date/Time:06/27/2018 07:54:47 Reading Location: [address] Neuro Reading Room Procedure Note Interface, [...] Report Verified Date/Time: 06/27/2018 07:54:47 Reading Location: [facility] B1 [id number] Neuro Reading Room Performing Organization Address City/State/Zipcode Phone Number GE RIS CBC with platelet count + automated diff (06/27/2018 5:11 AM CDT)Only the most recent of2 resultswithin the time period is included. WBC 3.3 (L) 3.5 - 10.5 K/L [facility] RBC 2.64 (L) 3.93 - 5.22 M/L [facility] Hemoglobin 8.1 (L) 11.2 - 15.7 GM/DL [facility] Hematocrit 26.1 (L) 34.1 - 44.9 % [facility] MCV 98.9 (H) 79.4 - 94.8 fL [facility] MCH 30.7 25.6 - 32.2 pg [facility] MCHC 31.0 (L) 32.2 - 35.5 GM/DL [facility] RDW 16.3 (H) 11.7 - 14.4 % [facility] Platelets 159 150 - 450 K/CU MM [facility] MPV 8.9 (L) 9.4 - 12.3 fL [facility] nRBC 0 0 - 0 /100 WBC [facility] % Neutros 74 % [facility] % Lymphs 12 % [facility] % Monos 7 % [facility] % Eos 4 % [facility] % Baso 0 % [facility] # Neutros 2.42 1.56 - 6.13 K/L [facility] # Lymphs 0.40 (L) 1.18 - 3.74 K/L [facility] # Monos 0.21 (L) 0.24 - 0.36 K/L [facility] # Eos 0.14 0.04 - 0.36 K/L [facility] # Baso 0.01 0.01 - 0.08 K/L [facility] Immature Granulocytes-Relative 2 (H) 0 - 1 % [facility] Specimen Blood - Arm, Left Performing Organization Address City/[facility] Phone Number [address] [address] CENTER Prothrombin time/INR (06/27/2018 5:11 AM CDT)Only the most recent of3 resultswithin the time period is included. Protime 15.3 (H) 11.7 - 14.7 seconds [facility] INR 1.2 <=5.9 [facility] Specimen Blood - Arm, Left Narrative Performed At [facility] RECOMMENDED COUMADIN/WARFARIN INR THERAPY RANGES STANDARD DOSE: 2.0 - 3.0 Includes: PROPHYLAXIS for venous thrombosis, systemic embolization; TREATMENT for venous thrombosis and/or pulmonary embolus. HIGH RISK: Target INR is 2.5-3.5 for patients with mechanical heart valves. Performing Organization Address City/[facility]/Zipcode Phone Number [address] [address] CENTER Magnesium (06/27/2018 5:11 AM CDT)Only the most recent of2 resultswithin the time period is included. Magnesium 2.1 1.6 - 2.6 mg/dL [facility] Specimen Blood - Arm, Left Performing Organization Address City/State/Zipcode Phone Number [facility] [address] [place] [address] [place] Basic metabolic panel (06/27/2018 5:11 AM CDT)Only the most recent of2 resultswithin the time period is included. Sodium 138 136 - 145 meq/L [facility] Potassium 4.0 3.5 - 5.1 meq/L [facility] Chloride 107 98 - 107 meq/L [facility] CO2 25 22 - 29 meq/L [facility] BUN 12 7 - 21 mg/dL [facility] Creatinine 0.86 0.57 - 1.25 mg/dL [facility] Glucose 98 70 - 105 mg/dL [facility] Calcium 10.0 8.4 - 10.2 mg/dL [facility] EGFR 65Comment: ESTIMATED GFR IS mL/min/1.73 sq m [facility] NOT ACCURATE CREATININE [facility] CLEARANCE IN PREDICTING GLOMERULAR FILTRATION RATE. ESTIMATED GFR IS NOT APPLICABLE FOR DIALYSIS PATIENTS. Specimen Blood - Arm, Left Performing Organization Address City/State/Zipcode Phone Number [facility] [address] [place] [address] [place] XR spine lumbar 2 or 3 views (06/26/2018 5:06 PM CDT) Narrative Performed At FINAL REPORT [facility] CLINICAL HISTORY: Back pain, concern for [...] MD Report Verified Date/Time:06/26/2018 17:38:08 Reading Location: [address] Reading Room Procedure Note Interface, External [...] Report Verified Date/Time: 06/26/2018 17:38:08 Reading Location: [address] Reading Room Performing Organization Address [facility] Phone Number GE [facility]IS XR hip 2 views left (06/26/2018 4:45 PM CDT) Narrative Performed At FINAL REPORT [facility] CLINICAL HISTORY: Left hip pain, concern for [...] MD Report Verified Date/Time:06/26/2018 17:33:22 Reading Location: [address] Reading Room Procedure Note Interface, External [...] Report Verified Date/Time: 06/26/2018 17:33:22 Reading Location: [address] Reading Room Performing Organization Address [facility] Phone Number GE RIS Venous doppler legs bilateral (06/26/2018 10:55 AM CDT) Ejection Fraction [facility] CPACS Impressions Performed At Right Impression [facility] 1. There is no deep venous obstruction [...] PV LAB - Lower Extremities DVT Study [facility] Demographics Patient NamePHISARAH CALL Date of Study06/26/2018 SHILA 73 Visit [id number] Female of Birth1945 Number Referring Alejandra Kaur [id number] Physician Cornell Vieyra MD Assistant Family Teacher Marzena Rodríguez RVTInterpreting Ganesh Merlos, RPVI Procedure [...] Study 06/26/2018 SHILA Age 73 Visit Number [id number] Gender Female Date of 1945 Number Referring Alejandra Mae Room Number [id number] Physician Cornell Vieyra MD Assistant Family Teacher Marzena Rodríguez T Interpreting Casi Lantigua, Physician [...] AM CDT) Narrative Performed At FINAL REPORT [facility] CT head without contrast. Reason for [...] MD Report Verified Date/Time:06/26/2018 08:23:10 Reading Location: [facility] C013 Neuro Reading Room Procedure Note Interface, [...] Report Verified Date/Time: 06/26/2018 08:23:10 Reading Location: [place] [id number] Neuro Reading Room Performing Organization Address City/State/Zipcode Phone Number GE RIS Type and screen, automated (06/26/2018 5:46 AM CDT) ABO/RH AUTOMATED (BEAKER) A POSITIVE [facility] Ab Scrn NEGATIVE [facility] Specimen Blood Performing Organization Address City/[facility]/Zipcode Phone Number [facility] [address] [place], [place] [phone] after 10/23/2017 Insurance Payer Benefit Plan / Group Subscriber ID Type Phone Address MEDICARE MEDICARE A B xxxxxxxxxxx Medicare AETNA - MGD CARE AETNA INDEMNITY NON xxxxxxxxx Comm CONTR MCR [employer] xxxxxxxx Medigap SUPPLEMENT/INDIVIDUAL Advance Directives For more information, please contact:[facility] [place], [place] [phone] Code Status Date Activated Date Inactivated Comments Full Code 06/25/2018 9:01 PM 06/27/2018 5:18 PM This code status was determined by: Patient Full Code 01/13/2017 1:44 AM 01/15/2017 2:36 PM This code status was determined by: Patient
--- OUTSIDE RECORDS SUMMARY | 2018-10-24 10:17 | XMS REPORT ---
:1945 Author Organization [facility] Address [address] [place] [address] Dr. Mason [address] [place] [id number] Care Team Providers Name Role Phone NATALIE [...] Wayne Verified Date/Time: 06/27/2018 07:54:47 Reading Location: [address] Neuro Reading Room ESIUM 2018-06-27 06:11:00 Test Item Value Reference Range Comments MAGNESIUM (BEAKER) (test josn=154) 2.1 mg/dL 1.6-2.6 BASIC METABOLIC [id number] 06:11:00 Test Item Value Reference Range Comments SODIUM (BEAKER) (test 138 meq/L 136-145 cwul=506) POTASSIUM (BEAKER) (test 4.0 meq/L 3.5-5.1 pdyx=747) CHLORIDE (BEAKER) (test 107 meq/L 98-107 ayxm=900) CO2 (BEAKER) (test 25 meq/L 22-29 hmtn=996) BLOOD UREA NITROGEN 12 mg/dL 7-21 (BEAKER) (test nyrq=355) CREATININE (BEAKER) (test 0.86 mg/dL 0.57-1.25 bhpa=584) GLUCOSE RANDOM (BEAKER) 98 mg/dL 70-105 (test njxd=238) CALCIUM (BEAKER) (test 10.0 mg/dL 8.4-10.2 qbhv=129) EGFR (BEAKER) (test 65 mL/min/1.73 sq m ESTIMATED GFR IS NOT wvza=7225) ACCURATE CREATININE CLEARANCE IN PREDICTING GLOMERULAR FILTRATION RATE. ESTIMATED GFR IS NOT APPLICABLE FOR DIALYSIS PATIENTS. PROTHROMBIN TIME/[id number] 05:47:00 Test Item Value Reference Range Comments PROTIME (BEAKER) (test jrzu=056) 15.3 seconds 11.7-14.7 INR (BEAKER) (test jtko=755) 1.2 <=5.9 RECOMMENDED COUMADIN/WARFARIN INR THERAPY RANGESSTANDARD DOSE: 2.0 - 3.0 Includes: PROPHYLAXIS forvenous thrombosis, systemic embolization; TREATMENT for venous thrombosis and/or pulmonary embolus.HIGH RISK: Target INR is 2.5-3.5 for patients with mechanical heart valves.CBC W/PLT COUNT & AUTO [id number] 05:36:00 Test Item Value Reference Range Comments WHITE BLOOD CELL COUNT (BEAKER) (test dfvc=201) 3.3 K/ L 3.5-10.5 RED BLOOD CELL COUNT (BEAKER) (test sjmo=736) 2.64 M/ L 3.93-5.22 HEMOGLOBIN (BEAKER) (test rsxl=927) 8.1 GM/DL 11.2-15.7 HEMATOCRIT (BEAKER) (test iagc=386) 26.1 % 34.1-44.9 MEAN CORPUSCULAR VOLUME (BEAKER) (test wrek=316) 98.9 fL 79.4-94.8 MEAN CORPUSCULAR HEMOGLOBIN (BEAKER) (test 30.7 pg 25.6-32.2 uzpl=226) MEAN CORPUSCULAR HEMOGLOBIN CONC (BEAKER) (test 31.0 GM/DL 32.2-35.5 memx=044) RED CELL DISTRIBUTION WIDTH (BEAKER) (test 16.3 % 11.7-14.4 tpvy=934) PLATELET COUNT (BEAKER) (test urcl=971) 159 K/CU MM 150-450 MEAN PLATELET VOLUME (BEAKER) (test kray=711) 8.9 fL 9.4-12.3 NUCLEATED RED BLOOD CELLS (BEAKER) (test 0 /100 WBC 0-0 lcba=982) NEUTROPHILS RELATIVE PERCENT (BEAKER) (test 74 % upaq=854) LYMPHOCYTES RELATIVE PERCENT (BEAKER) (test 12 % mqwe=120) MONOCYTES RELATIVE PERCENT (BEAKER) (test 7 % vcgy=457) EOSINOPHILS RELATIVE PERCENT (BEAKER) (test 4 % blsk=980) BASOPHILS RELATIVE PERCENT (BEAKER) (test 0 % hkpt=892) NEUTROPHILS ABSOLUTE COUNT (BEAKER) (test 2.42 K/ L 1.56-6.13 gjdc=748) LYMPHOCYTES ABSOLUTE COUNT (BEAKER) (test 0.40 K/ L 1.18-3.74 ujbg=673) MONOCYTES ABSOLUTE COUNT (BEAKER) (test 0.21 K/ L 0.24-0.36 zled=295) EOSINOPHILS ABSOLUTE COUNT (BEAKER) (test 0.14 K/ L 0.04-0.36 ausy=720) BASOPHILS ABSOLUTE COUNT (BEAKER) (test 0.01 K/ L 0.01-0.08 ogkv=412) IMMATURE GRANULOCYTES-RELATIVE PERCENT (BEAKER) 2 % 0-1 (test psrw=3939) RAD, SPINE, LUMBAR, 2 OR 3 [id number] 17:38:00Reason for exam:->back pain, concern for pathologic [...] Verified Date/Time: 06/26/2018 17:38: 08 Reading Location: [address] Reading Room RAD, HIP, 2 VIEWS, [id number] 17:33:00Reason for exam:->hip pain, concern for pathologic [...] Verified Date/Time: 06/26/2018 17:33:22 Reading Location : [address] Reading Room PROTHROMBIN TIME/[id number] 12:39:00 Test Item Value Reference Range Comments PROTIME (BEAKER) (test filb=270) 16.4 seconds 11.7-14.7 INR (BEAKER) (test tiys=985) 1.3 <=5.9 RECOMMENDED COUMADIN/WARFARIN INR THERAPY RANGESSTANDARD DOSE: 2.0 - 3.0 Includes: PROPHYLAXIS forvenous thrombosis, systemic embolization; TREATMENT for venous thrombosis and/or pulmonary embolus.HIGH RISK: Target INR is 2.5-3.5 for patients with mechanical heart valves.To follow up after FFP was givenCT, BRAIN, WITHOUT [id number] 08:23:00FINAL REPORT CT head without contrast. Reason [...] MDReport Verified Date/Time: 06/26/2018 08:23:10 Reading Location: [facility] B1 C013V Neuro Reading Room Electronically signed by: MARANDA HARRIS M.D. on 08:23 AMCT, SPINE, CERVICAL, WO [id number] 08:23:00FINAL REPORT CT head without contrast. Reason [...] Harrisort Verified Date/Time: 06/26/2018 08:23:10 Reading Location: [address] Neuro Reading Room Electronically signed by: MARANDA HARRIS M.D. on 08:23 [id number] 03:24:00 Test Item Value Reference Range Comments MAGNESIUM (BEAKER) (test vhdp=889) 2.0 mg/dL 1.6-2.6 BASIC METABOLIC [id number] 03:24:00 Test Item Value Reference Range Comments SODIUM (BEAKER) (test 135 meq/L 136-145 ycpb=146) POTASSIUM (BEAKER) (test 3.8 meq/L 3.5-5.1 eaaa=774) CHLORIDE (BEAKER) (test 104 meq/L 98-107 uuxo=957) CO2 (BEAKER) (test 25 meq/L 22-29 xmuc=872) BLOOD UREA NITROGEN 11 mg/dL 7-21 (BEAKER) (test dzvy=668) CREATININE (BEAKER) (test 0.92 mg/dL 0.57-1.25 qneh=241) GLUCOSE RANDOM (BEAKER) 156 mg/dL 70-105 (test kixc=215) CALCIUM (BEAKER) (test 9.9 mg/dL 8.4-10.2 clpp=227) EGFR (BEAKER) (test 60 mL/min/1.73 sq m ESTIMATED GFR IS NOT hoza=7001) ACCURATE CREATININE CLEARANCE IN PREDICTING GLOMERULAR FILTRATION RATE. ESTIMATED GFR IS NOT APPLICABLE FOR DIALYSIS PATIENTS. CBC W/PLT COUNT & AUTO [id number] 03:06:00 Test Item Value Reference Range Comments WHITE BLOOD CELL COUNT (BEAKER) (test ydfq=217) 4.2 K/ L 3.5-10.5 RED BLOOD CELL COUNT (BEAKER) (test rgzx=107) 2.84 M/ L 3.93-5.22 HEMOGLOBIN (BEAKER) (test popj=568) 8.9 GM/DL 11.2-15.7 HEMATOCRIT (BEAKER) (test zflq=849) 27.5 % 34.1-44.9 MEAN CORPUSCULAR VOLUME (BEAKER) (test ojbl=906) 96.8 fL 79.4-94.8 MEAN CORPUSCULAR HEMOGLOBIN (BEAKER) (test 31.3 pg 25.6-32.2 wrec=421) MEAN CORPUSCULAR HEMOGLOBIN CONC (BEAKER) (test 32.4 GM/DL 32.2-35.5 ixvn=908) RED CELL DISTRIBUTION WIDTH (BEAKER) (test 16.5 % 11.7-14.4 sxmu=209) PLATELET COUNT (BEAKER) (test kvcp=556) 143 K/CU MM 150-450 MEAN PLATELET VOLUME (BEAKER) (test ywho=746) 8.3 fL 9.4-12.3 NUCLEATED RED BLOOD CELLS (BEAKER) (test 0 /100 WBC 0-0 sivd=351) NEUTROPHILS RELATIVE PERCENT (BEAKER) (test 83 % ipgd=507) LYMPHOCYTES RELATIVE PERCENT (BEAKER) (test 8 % tunz=584) MONOCYTES RELATIVE PERCENT (BEAKER) (test 6 % rlrz=900) EOSINOPHILS RELATIVE PERCENT (BEAKER) (test 1 % wtth=145) BASOPHILS RELATIVE PERCENT (BEAKER) (test 0 % dadt=081) NEUTROPHILS ABSOLUTE COUNT (BEAKER) (test 3.47 K/ L 1.56-6.13 zzza=845) LYMPHOCYTES ABSOLUTE COUNT (BEAKER) (test 0.31 K/ L 1.18-3.74 pinp=772) MONOCYTES ABSOLUTE COUNT (BEAKER) (test 0.26 K/ L 0.24-0.36 hbxw=414) EOSINOPHILS ABSOLUTE COUNT (BEAKER) (test 0.06 K/ L 0.04-0.36 chyk=221) BASOPHILS ABSOLUTE COUNT (BEAKER) (test 0.01 K/ L 0.01-0.08 lflz=080) IMMATURE GRANULOCYTES-RELATIVE PERCENT (BEAKER) 1 % 0-1 (test gmjz=6177) PROTHROMBIN TIME/[id number] 03:06:00 Test Item Value Reference Range Comments PROTIME (BEAKER) (test uojw=035) 20.7 seconds 11.7-14.7 INR (BEAKER) (test njyt=465) 1.8 <=5.9 RECOMMENDED COUMADIN/WARFARIN INR THERAPY RANGESSTANDARD DOSE: 2.0 - 3.0 Includes: PROPHYLAXIS forvenous thrombosis, systemic embolization; TREATMENT for venous thrombosis and/or pulmonary embolus.HIGH RISK: Target INR is 2.5-3.5 for patients with mechanical heart valves.CT, BRAIN, WITHOUT [id number] 21:34:00FINAL REPORT CT, BRAIN, WITHOUT CONTRAST INDICATION: [...] MDReport Verified Date/Time: 06/25/2018 21:34:01 Reading Location: [address] Body Reading Room 09: 34 PMCBC W/PLT COUNT & AUTO [id number] 08:04:00 Test Item Value Reference Range Comments WHITE BLOOD CELL COUNT (BEAKER) (test xopc=797) 7.6 K/ L 4.0-10.0 RED BLOOD CELL COUNT (BEAKER) (test kwtb=005) 3.35 M/ L 4.00-5.00 HEMOGLOBIN (BEAKER) (test qror=248) 9.7 GM/DL 12.0-15.0 HEMATOCRIT (BEAKER) (test vgbh=403) 29.7 % 36.0-45.0 MEAN CORPUSCULAR VOLUME (BEAKER) (test abhm=609) 88.4 fL 82.0-99.0 MEAN CORPUSCULAR HEMOGLOBIN (BEAKER) (test 28.9 pg 27.0-33.0 nrgx=852) MEAN CORPUSCULAR HEMOGLOBIN CONC (BEAKER) (test 32.7 GM/DL 32.0-36.0 bfjl=782) RED CELL DISTRIBUTION WIDTH (BEAKER) (test 16.8 % 10.3-14.2 gdcw=585) PLATELET COUNT (BEAKER) (test aoom=519) 240 K/CU MM 150-430 MEAN PLATELET VOLUME (BEAKER) (test orku=032) 6.2 fL 6.5-10.5 NUCLEATED RED BLOOD CELLS (BEAKER) (test 0 /100 WBC 0-0 wlar=644) NEUTROPHILS RELATIVE PERCENT (BEAKER) (test 83 % tjcc=837) LYMPHOCYTES RELATIVE PERCENT (BEAKER) (test 10 % kbeh=432) MONOCYTES RELATIVE PERCENT (BEAKER) (test 6 % envu=040) EOSINOPHILS RELATIVE PERCENT (BEAKER) (test 0 % rfkg=457) BASOPHILS RELATIVE PERCENT (BEAKER) (test 0 % mdww=747) NEUTROPHILS ABSOLUTE COUNT (BEAKER) (test 6.31 K/ L 1.80-8.00 doak=145) LYMPHOCYTES ABSOLUTE COUNT (BEAKER) (test 0.75 K/ L 1.48-4.50 lcju=142) MONOCYTES ABSOLUTE COUNT (BEAKER) (test 0.47 K/ L 0.00-1.30 acpd=579) EOSINOPHILS ABSOLUTE COUNT (BEAKER) (test 0.02 K/ L 0.00-0.50 sjqz=721) BASOPHILS ABSOLUTE COUNT (BEAKER) (test 0.03 K/ L 0.00-0.20 bfpg=885) 0.00POCT-GLUCOSE [id number] 08:02:00 Test Item Value Reference Range Comments POC-GLUCOSE METER (BEAKER) 146 mg/dL 70-110 TESTED AT [facility] [address] [facility] (test ggch=0975) [facility] [address] BASIC METABOLIC [id number] 06:13:00 Test Item Value Reference Range Comments SODIUM (BEAKER) (test 139 meq/L 136-145 zyms=579) POTASSIUM (BEAKER) (test 3.6 meq/L 3.5-5.1 vjle=364) CHLORIDE (BEAKER) (test 105 meq/L 98-107 isac=288) CO2 (BEAKER) (test 25 meq/L 22-29 cntp=362) BLOOD UREA NITROGEN 21 mg/dL 7-21 (BEAKER) (test ldle=637) CREATININE (BEAKER) (test 0.88 mg/dL 0.57-1.25 hjco=192) GLUCOSE RANDOM (BEAKER) 144 mg/dL 70-105 (test aryp=582) CALCIUM (BEAKER) (test 9.2 mg/dL 8.4-10.2 grdl=638) EGFR (BEAKER) (test 63 mL/min/1.73 sq m ESTIMATED GFR IS NOT gtqj=9346) ACCURATE CREATININE CLEARANCE IN PREDICTING GLOMERULAR FILTRATION RATE. ESTIMATED GFR IS NOT APPLICABLE FOR DIALYSIS PATIENTS. PROTHROMBIN TIME/[id number] 05:53:00 Test Item Value Reference Range Comments PROTIME (BEAKER) (test bxmx=699) 16.6 seconds 11.7-14.7 INR (BEAKER) (test nmch=457) 1.4 <=5.9 RECOMMENDED COUMADIN/WARFARIN INR THERAPY RANGESSTANDARD DOSE: 2.0 - 3.0 Includes: PROPHYLAXIS forvenous thrombosis, systemic embolization; TREATMENT for venous thrombosis and/or pulmonary embolus.HIGH RISK: Target INR is 2.5-3.5 for patients with mechanical heart valves.POCT-GLUCOSE [id number] 21:46:00 Test Item Value Reference Range Comments POC-GLUCOSE METER (BEAKER) 195 mg/dL 70-110 TESTED AT [address] (test rxec=3760) [facility] [address] POCT-GLUCOSE [id number] 15:39:00 Test Item Value Reference Range Comments POC-GLUCOSE METER (BEAKER) 104 mg/dL 70-110 TESTED AT [address] (test krlp=7674) [facility] [address] POCT-GLUCOSE [id number] 08:42:00 Test Item Value Reference Range Comments POC-GLUCOSE METER (BEAKER) 151 mg/dL 70-110 TESTED AT [address] (test wosa=6275) [facility] [address] POTASSIUM-STAT [id number] 08:42:00 Test Item Value Reference Range Comments POTASSIUM (BEAKER) (test pjyp=271) 4.2 meq/L 3.6-5.5 PROTHROMBIN TIME/[id number] 06:35:00 Test Item Value Reference Range Comments PROTIME (BEAKER) (test qufy=118) 19.9 seconds 11.7-14.7 INR (BEAKER) (test hfez=699) 1.7 <=5.9 RECOMMENDED COUMADIN/WARFARIN INR THERAPY RANGESSTANDARD DOSE: 2.0 - 3.0 Includes: PROPHYLAXIS forvenous thrombosis, systemic embolization; TREATMENT for venous thrombosis and/or pulmonary embolus.HIGH RISK: Target INR is 2.5-3.5 for patients with mechanical heart valves.POCT-GLUCOSE [id number] 17:41:00 Test Item Value Reference Range Comments POC-GLUCOSE METER (BEAKER) 225 mg/dL 70-110 TESTED AT [facility] [address] [facility] (test zzud=9496) [facility] [address] [id number] 00:38:00 Test Item Value Reference Range Comments PHOSPHORUS (BEAKER) (test biqv=197) 2.2 mg/dL 2.3-4.7 [id number] 00:38:00 Test Item Value Reference Range Comments MAGNESIUM (BEAKER) (test spql=972) 2.0 mg/dL 1.6-2.6 BASIC METABOLIC [id number] 00:38:00 Test Item Value Reference Range Comments SODIUM (BEAKER) (test 138 meq/L 136-145 cnbl=464) POTASSIUM (BEAKER) (test 3.1 meq/L 3.5-5.1 rbla=285) CHLORIDE (BEAKER) (test 106 meq/L 98-107 itdt=860) CO2 (BEAKER) (test 23 meq/L 22-29 kmss=814) BLOOD UREA NITROGEN 16 mg/dL 7-21 (BEAKER) (test ejio=556) CREATININE (BEAKER) (test 0.76 mg/dL 0.57-1.25 tqkw=867) GLUCOSE RANDOM (BEAKER) 151 mg/dL 70-105 (test mbeh=367) CALCIUM (BEAKER) (test 8.6 mg/dL 8.4-10.2 sdys=249) EGFR (BEAKER) (test 75 mL/min/1.73 sq m ESTIMATED GFR IS NOT tkkn=6300) ACCURATE CREATININE CLEARANCE IN PREDICTING GLOMERULAR FILTRATION RATE. ESTIMATED GFR IS NOT APPLICABLE FOR DIALYSIS PATIENTS. [id number] 00:35:00 Test Item Value Reference Range Comments PARTIAL THROMBOPLASTIN TIME (BEAKER) (test 34.9 seconds 22.5-36.0 bkqh=208) PROTHROMBIN TIME/[id number] 00:34:00 Test Item Value Reference Range Comments PROTIME (BEAKER) (test jcwz=137) 26.2 seconds 11.7-14.7 INR (BEAKER) (test gnem=653) 2.4 <=5.9 RECOMMENDED COUMADIN/WARFARIN INR THERAPY RANGESSTANDARD DOSE: 2.0 - 3.0 Includes: PROPHYLAXIS forvenous thrombosis, systemic embolization; TREATMENT for venous thrombosis and/or pulmonary embolus.HIGH RISK: Target INR is 2.5-3.5 for patients with mechanical heart valves.CBC (HEMOGRAM ONLY)[id number] 00:33:00 Test Item Value Reference Range Comments WHITE BLOOD CELL COUNT (BEAKER) (test zszx=190) 5.3 K/ L 4.0-10.0 RED BLOOD CELL COUNT (BEAKER) (test gulo=468) 3.60 M/ L 4.00-5.00 HEMOGLOBIN (BEAKER) (test rsat=282) 10.1 GM/DL 12.0-15.0 HEMATOCRIT (BEAKER) (test tcjk=502) 31.7 % 36.0-45.0 MEAN CORPUSCULAR VOLUME (BEAKER) (test kkdd=521) 88.1 fL 82.0-99.0 MEAN CORPUSCULAR HEMOGLOBIN (BEAKER) (test 28.0 pg 27.0-33.0 sesc=780) MEAN CORPUSCULAR HEMOGLOBIN CONC (BEAKER) (test 31.7 GM/DL 32.0-36.0 lgks=309) RED CELL DISTRIBUTION WIDTH (BEAKER) (test 16.6 % 10.3-14.2 lixp=620) PLATELET COUNT (BEAKER) (test povs=419) 260 K/CU MM 150-430 MEAN PLATELET VOLUME (BEAKER) (test wstb=218) 5.8 fL 6.5-10.5 NUCLEATED RED BLOOD CELLS (BEAKER) (test 0 /100 WBC 0-0 jool=510) 0.00
[2018-10-24 11:05] LABS: Absolute Lymphocytes (CBC) 0.3 K/uL (0.7-4.9); Absolute Monocytes 0.2 K/uL (0.1-1.3); Absolute Neutrophil 2.9 K/uL (1.8-8.0); Basophils % 0.6 % (0-1.3); Eosinophils % 3.1 % (0-4.4); Hematocrit 19.7 % (36.0-45.0); Lymphocytes % 9.3 % (15.3-44.8); MPV 6.8 fL (7.6-11.3); Monocytes % 5.5 % (3.3-12.3); RBC Red Blood Cell Count 2.07 M/uL (3.86-4.86)
[2018-10-24 11:08] LABS: Protime INR 1.24
[2018-10-24 11:25] LABS: ALT/SGPT 14 U/L (12-78); AST/SGOT 36 U/L (15-37); Albumin 2.7 g/dL (3.4-5.0); Alkaline Phosphatase 92 U/L (45-117); BUN Blood Urea Nitrogen 12 mg/dL (7-18); Bicarbonate 26 mmol/L (21-32); Bilirubin Direct < 0.1 mg/dL (0-0.2); Bilirubin Total 0.3 mg/dL (0.2-1.0); Glucose Level 86 mg/dL (74-106); NT PRO-BNP 519 pg/mL (<125); Potassium 3.8 mmol/L (3.5-5.1); Protein, Total 7.8 g/dL (6.4-8.2); Sodium Level 138 mmol/L (136-145); Troponin (Emerg Dept Use Only) < 0.02 ng/mL (0.0-0.045)
--- NOTE | 2018-10-24 11:34 | EDPHYS ---
Physician Documentation [facility] Name: Sraah Betancourt Age: 73 yrs Sex: Female : 1945 Arrival Date: 10/24/2018 Time: 10:14 Bed 8 Private MD: Nick Alexandre V ED Physician Campos Oseguera HPI: 10/24 10:47 This 73 yrs old Female presents to ER via EMS with complaints of Pain All ma2 Over. 10:47 The patient or guardian reports chest pain that is located primarily in the anterior ma2 chest wall, right lateral posterior chest. Onset: gradually, 1 day(s) ago. Associated signs and symptoms: Pertinent negatives: abdominal pain, dizziness, lower extremity pain, lightheadedness, nausea, syncope, vomiting. The chest pain is described as aching. Duration: The patient or guardian reports a single episode, that lasted 10 hour(s). Severity of pain: At its worst the pain was moderate in the emergency department the pain has resolved after treatment by EMS personnel. The patient has experienced similar episodes in the past. Historical: - Allergies: 10:30 Demerol; sg 10:30 Indocin; sg 10:30 Niacin; sg 10:30 rosuvastatin calcium; sg - Home Meds: 10:30 Neurontin 300 mg Oral cap 1 cap 3 times per day [Active]; Xarelto 10 mg Oral tab 1 tab sg once daily [Active]; nifedipine 30 mg Oral TbER 1 tab once daily [Active]; venlafaxine 75 mg Oral cp24 [Active]; Nexium 20 mg oral cpDR 1 cap once daily [Active]; Integra oral 1 cap once daily [Active]; [place] 10-325 mg Oral tab 1 tab every 6 hours [Active]; abemaciclib 150 mg twice a day [Active]; Synthroid 50 mcg Oral tab 1 tab once daily [Active]; Benadryl 25 mg Oral cap 1 cap twice a day [Active]; morphine 30 mg oral tab 1 tab twice a day for Pain [Active]; morphine 15 mg Oral tab 1 tab Twice in the morning, 1 at night for Pain [Active]; Requip 2 mg Oral tab 1 tab two times per day [Active]; - PMHx: 10:30 Atrial Fib; BREAST CA; GERD; Hyperlipidemia; Hypertension; 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 - Social history:: Smoking status: Patient/guardian denies using tobacco, Patient/guardian denies using alcohol, street drugs, The patient lives with family. - Ebola Screening: : Patient negative for fever greater than or equal to 101.5 degrees Fahrenheit, and additional compatible Ebola Virus Disease symptoms Patient denies exposure to infectious person Patient denies travel to an Ebola-affected area in the 21 days before illness onset No symptoms or risks identified at this time. - Family history:: not pertinent. - Hospitalizations: : No recent hospitalization is reported. ROS: 10:47 Constitutional: Negative for fever, chills, and weight loss. ma2 10:47 Endocrine: Negative for neck swelling, polydipsia, polyuria, polyphagia, and marked weight changes. 10:47 Respiratory: Positive for chest wall pain , Negative for dyspnea on exertion, orthopnea, pleurisy, shortness of breath, sputum production. 10:47 All other systems are negative. Exam: 10:47 Constitutional: This is a well developed, well nourished patient who is awake, alert, ma2 and in no acute distress. ENT: Nares patent. No nasal discharge, no septal abnormalities noted. Tympanic membranes are normal and external auditory canals are clear. Oropharynx with no redness, swelling, or masses, exudates, or evidence of obstruction, uvula midline. Mucous membranes moist. Neck: Trachea midline, no thyromegaly or masses palpated, and no cervical lymphadenopathy. Supple, full range of motion without nuchal rigidity, or vertebral point tenderness. No Meningismus. Cardiovascular: Regular rate and rhythm with a normal S1 and S2. No gallops, murmurs, or rubs. Normal PMI, no JVD. No pulse deficits. Respiratory: Lungs have equal breath sounds bilaterally, clear to auscultation and percussion. No rales, rhonchi or wheezes noted. No increased work of breathing, no retractions or nasal flaring. Abdomen/GI: Soft, non-tender, with normal bowel sounds. No distension or tympany. No guarding or rebound. No evidence of tenderness throughout. 10:47 Chest/axilla: Inspection: normal, Palpation: crepitus, is not appreciated, tenderness, that is severe, of the right lateral posterior chest. Vital Signs: 10:18 BP 136 / 66; Pulse 77; Resp 16; Temp 98.3; Pulse Ox 100% on R/A; Weight 79.38 kg; Pain sg 5/10; 16:35 BP 105 / 70; Pulse 67; Resp 16; Temp 97.2; Pulse Ox 97% on R/A; Pain 5/10; sg [place] Coma Score: 16:35 Eye Response: spontaneous(4). Verbal Response: oriented(5). Motor Response: obeys sg commands(6). Total: 15. MDM: 10:38 Patient medically screened. ma2 10:47 Differential diagnosis: pleurisy, pulmonary embolus, chest wall pain likely msk. The [facility] patient's deep vein thrombosis risk score was calculated as follows: the patient is receiving ongoing or pallative cancer treatment (1.0 Pts). The patient's pulmonary embolism risk score was calculated as follows: suspected deep vein thrombosis (3 Pts) malignancy. KEMI Risk Score: not applicable. 11:13 Data reviewed: vital signs, nurses notes, lab test result(s), radiologic studies. ma2 Counseling: I had a detailed discussion with the patient and/or guardian regarding: the historical points, exam findings, and any diagnostic results supporting the discharge/admit diagnosis, the presence of at least one elevated blood pressure reading (>120/80) during this emergency department visit, the need for further work-up and treatment in the hospital. ED course: hb is 6.8 will transfuse 2 uPRB, right chest wall pain is likely MSK, she is on xarelto for DVT and massive PE unlikely as her pain is resolved and her VS wnl.. not in distress . 11:32 ED course: discussed with dr. Alexandre accepted for admission . [facility] 10/24 10:39 Order name: Basic Metabolic Panel [facility] 10/24 10:39 Order name: CBC with Diff 10/24 10:39 Order name: LFT's [facility] 10/24 10:39 Order name: Magnesium [facility] 10/24 10:39 Order name: NT PRO-BNP [facility] 10/24 10:39 Order name: PT-INR [facility] 10/24 10:39 Order name: Troponin (emerg Dept Use Only) [facility] 10/24 11:09 Order name: CBC with Automated Diff; Complete Time: 11:12 EDMS 10/24 11:12 Order name: TS bd 10/24 11:15 Order name: Bb Add On bd 10/24 11:25 Order name: Basic Metabolic Panel; Complete Time: 11:28 EDMS 10/24 11:25 Order name: Liver (Hepatic) Function; Complete Time: 11:28 EDMS 10/24 11:25 Order name: Troponin (Emerg Dept Use Only); Complete Time: 11:28 EDMS 10/24 11:25 Order name: NT PRO-BNP; Complete Time: 11:28 MS 10/24 10:39 Order name: EKG; Complete Time: 10:40 wy2 10/24 11:13 Order name: Chest Single View XRAY [facility] 10/24 11:25 Order name: Magnesium; Complete Time: 11:28 MS 10/24 11:25 Order name: Protime (+INR); Complete Time: 11:28 MS 10/24 12:04 Order name: RAD EDN[facility] 10/24 12:32 Order name: Basic Metabolic Panel [facility] 10/24 12:32 Order name: Basic Metabolic Panel [facility] 10/24 12:32 Order name: CBC with Automated Diff EDN[facility] 10/24 12:32 Order name: CBC with Automated Diff [facility] 10/24 13:19 Order name: Packed RBC Leukored -1 [facility] 10/24 13:23 Order name: Bb Add On 10/24 10:39 Order name: Cardiac monitoring; Complete Time: 10:44 wy2 10/24 10:39 Order name: EKG - Nurse/Tech; Complete Time: 11:51 wy2 10/24 10:39 Order name: IV Saline Lock; Complete Time: 10:44 wy2 10/24 10:39 Order name: Labs collected and sent; Complete Time: 10:44 wy2 10/24 10:39 Order name: O2 Per Protocol; Complete Time: 10:44 wy2 10/24 10:39 Order name: O2 Sat Monitoring; Complete Time: 10:44 wy2 10/24 11:32 Order name: Transfuse: 3 Units of pRBC; Complete Time: 16:21 wy2 10/24 12:32 Order name: Consistent Carb (ADA) 1800 Carlos EDMS 10/24 12:32 Order name: EKG Electrocardiogram [facility] 10/24 12:32 Order name: EKG Electrocardiogram EDMS 10/24 12:32 Order name: EKG Electrocardiogram EDMS 10/24 12:32 Order name: EKG Electrocardiogram EDMS Administered Medications: 11:51 Drug: fentaNYL (PF) 75 mcg Route: IVP; Site: left forearm; ss 13:50 Drug: morphine 4 mg Route: IVP; Site: left forearm; ss 14:30 Follow up: Response: No adverse reaction; Pain is decreased sg 17:20 Drug: morphine 4 mg Route: IVP; Site: left forearm; sg 19:19 Follow up: Response: No adverse reaction; Pain is unchanged, physician notified sg 17:20 Drug: Zofran 4 mg Route: IVP; Site: left forearm; sg 19:20 Follow up: Response: No adverse reaction sg Disposition: 10/24/18 11:33 Hospitalization ordered by Nick Alexandre for Observation. 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 - Bed requested for Telemetry/MedSurg (observation). - Status is Observation. sg - Condition is Stable. - Problem is chronic. - Symptoms have worsened. UTI on Admission? No Signatures: Dispatcher [employer] EDMS Beth Brooks Steven, RN RN sg Smirch, Shelby, RN RN Campos Oseguera MD MD ma2 Corrections: (The following items were deleted from the chart) 16:12 11:33 Hospitalization Ordered by Nick Alexandre MD for Observation. Preliminary diagnosis bd is Anemia in neoplastic disease. Bed requested for Telemetry/MedSurg (observation). Status is Observation. Condition is Stable. Problem is chronic. Symptoms have worsened. UTI on Admission? No. ma2 17:52 16:12 10/24/2018 11:33 Hospitalization Ordered by Nick Alexandre MD for Observation. 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 Bed requested for Telemetry/MedSurg (observation). Status is Observation. Condition is Stable. Problem is chronic. Symptoms have worsened. UTI on Admission? No. bd
--- NOTE | 2018-10-24 11:34 | ER ---
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 Transition of care: patient was not received from another setting of care. Onset of symptoms was October 24, 2018. Risk Assessment: Do you want to hurt yourself or someone else? Patient reports no desire to harm self or others. Initial Sepsis Screen: Does the patient meet any 2 criteria? No. Patient's initial sepsis screen is negative. Does the patient have a suspected source of infection? No. Patient's initial sepsis screen is negative. Care prior to arrival: Medication(s) given: Normal saline infusion, 250 mL zofran 4 mg, Fentanyl 75 mcg IV, reports pain from 10/10 down to 5/10 IV initiated. 22 GA, in the left forearm. 10:15 Method Of Arrival: EMS: [facility] sg 10:15 Acuity: MARIA R 3 sg Historical: - Allergies: 10:30 Demerol; sg 10:30 Indocin; sg 10:30 Niacin; sg 10:30 rosuvastatin calcium; sg - Home Meds: 10:30 Neurontin 300 mg Oral cap 1 cap 3 times per day [Active]; Xarelto 10 mg Oral tab 1 tab sg once daily [Active]; nifedipine 30 mg Oral TbER 1 tab once daily [Active]; venlafaxine 75 mg Oral cp24 [Active]; Nexium 20 mg oral cpDR 1 cap once daily [Active]; Integra oral 1 cap once daily [Active]; [place] 10-325 mg Oral tab 1 tab every 6 hours [Active]; abemaciclib 150 mg twice a day [Active]; Synthroid 50 mcg Oral tab 1 tab once daily [Active]; Benadryl 25 mg Oral cap 1 cap twice a day [Active]; morphine 30 mg oral tab 1 tab twice a day for Pain [Active]; morphine 15 mg Oral tab 1 tab Twice in the morning, 1 at night for Pain [Active]; Requip 2 mg Oral tab 1 tab two times per day [Active]; - PMHx: 10:30 Atrial Fib; BREAST CA; GERD; Hyperlipidemia; Hypertension; 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 - Social history:: Smoking status: Patient/guardian denies using tobacco, Patient/guardian denies using alcohol, street drugs, The patient lives with family. - Ebola Screening: : Patient negative for fever greater than or equal to 101.5 degrees Fahrenheit, and additional compatible Ebola Virus Disease symptoms Patient denies exposure to infectious person Patient denies travel to an Ebola-affected area in the 21 days before illness onset No symptoms or risks identified at this time. - Family history:: not pertinent. - Hospitalizations: : No recent hospitalization is reported. Screenin:38 Abuse screen: Denies threats or abuse. Denies injuries from another. Nutritional sg screening: No deficits noted. Tuberculosis screening: No symptoms or risk factors identified. Never had TB. Fall Risk None identified. Assessment: 10:38 General: Appears in no apparent distress. comfortable, well groomed, well developed, sg well nourished, Behavior is calm, cooperative, appropriate for age. Pain: Complains of pain in bodyaches Quality of pain is described as aching. Neuro: Level of Consciousness is awake, alert, obeys commands, Oriented to person, place, time, situation, Foundation Relations Director are Moves all extremities. Full function Speech is normal, Facial symmetry appears normal. Cardiovascular: Heart tones S1 S2 present Patient's skin is warm and dry. Respiratory: Airway is patent Respiratory effort is even, unlabored, Respiratory pattern is regular, symmetrical. GI: No signs and/or symptoms were reported involving the gastrointestinal system. : No signs and/or symptoms were reported regarding the genitourinary system. EENT: No signs and/or symptoms were reported regarding the EENT system. Derm: Skin is pink, warm \T\ dry. Musculoskeletal: No signs and/or symptoms reported regarding the musculoskeletal system. 11:40 Reassessment: Patient appears in no apparent distress at this time. Patient and/or sg family updated on plan of care and expected duration. Pain level reassessed. Patient is alert, oriented x 3, equal unlabored respirations, skin warm/dry/pink. Patient states symptoms have not improved. 14:00 Reassessment: Patient appears in no apparent distress at this time. Patient and/or sg family updated on plan of care and expected duration. Pain level reassessed. Patient is alert, oriented x 3, equal unlabored respirations, skin warm/dry/pink. pt family remains at bedside at this time. 15:50 Reassessment: Patient appears in no apparent distress at this time. Patient and/or sg family updated on plan of care and expected duration. Pain level reassessed. Patient is alert, oriented x 3, equal unlabored respirations, skin warm/dry/pink. awaiting a bed assignment at this time, will continue to monitor Patient states symptoms have not improved. 17:50 Reassessment: Patient appears in no apparent distress at this time. Patient and/or sg family updated on plan of care and expected duration. Pain level reassessed. Patient is alert, oriented x 3, equal unlabored respirations, skin warm/dry/pink. pt blood infusion continues upon admission. Vital Signs: 10:18 BP 136 / 66; Pulse 77; Resp 16; Temp 98.3; Pulse Ox 100% on R/A; Weight 79.38 kg; Pain sg 5/10; 16:35 BP 105 / 70; Pulse 67; Resp 16; Temp 97.2; Pulse Ox 97% on R/A; Pain 5/10; sg Clyde Coma Score: 16:35 Eye Response: spontaneous(4). Verbal Response: oriented(5). Motor Response: obeys sg commands(6). Total: 15. ED Course: 10:14 Patient arrived in ED. sg 10:14 Nick Alexandre MD is Private Physician. sg 10:15 Arm band placed on. sg 10:18 Triage completed. sg 10:31 Terry Mccain, OMNA is Primary Nurse. sg 10:32 Campos Oseguera MD is Attending Physician. sg 10:42 Patient has correct armband on for positive identification. Bed in low position. Call sg light in reach. Pulse ox on. NIBP on. residential monitor on. Warm blanket given. Head of bed elevated. 10:55 Initial lab(s) drawn, by me, sent to lab. Maintain EMS IV. Dressing intact. Good blood sg return noted. Site clean \T\ dry. Gauge \T\ site: 22 g LFA. 11:08 EKG done, by medical administrative technician. reviewed by Campos Oseguera MD. sm3 11:33 Nick Alexandre MD is Hospitalizing Provider. ma2 17:50 No provider procedures requiring assistance completed. Patient admitted, IV remains in sg place. intact, No redness/swelling at site. Administered Medications: 11:51 Drug: fentaNYL (PF) 75 mcg Route: IVP; Site: left forearm; ss 13:50 Drug: morphine 4 mg Route: IVP; Site: left forearm; ss 14:30 Follow up: Response: No adverse reaction; Pain is decreased sg 17:20 Drug: morphine 4 mg Route: IVP; Site: left forearm; sg 19:19 Follow up: Response: No adverse reaction; Pain is unchanged, physician notified sg 17:20 Drug: Zofran 4 mg Route: IVP; Site: left forearm; sg 19:20 Follow up: Response: No adverse reaction sg Outcome: 11:33 Decision to Hospitalize by Provider. ma2 17:50 Admitted to Med/surg accompanied by nurse, accompanied by tech, family with patient, sg via stretcher, room 222, with chart, Report called to Bedside report given to Sonja DUNN 17:50 Condition: stable 17:50 Instructed on the need for admit, safety practices, Demonstrated understanding of instructions. 17:52 Patient left the ED. sg Signatures: Terry Mccain RN RN Lou Figueroa RN RN Campos Oseguera MD MD [facility] Ira Nathan 3 Corrections: (The following items were deleted from the chart) 19:19 18:00 Response: No adverse reaction; Pain is decreased sg sg
[2018-10-24] MEDS ORDERED: HYDROCODONE/APAP 5/325 MG TAB PO PRN (11:35)
[2018-10-24] MEDS ORDERED: ONDANSETRON 4 MG/2 ML VIAL IV PRN (11:35)
--- NOTE | 2018-10-24 11:43 | EKG ---
Test Date: 2018-10-24 Test Time: 10:54:54 Cell Assembly Pinner: HUMA MEASUREMENT RESULTS: Intervals: Rate: 69 NH: 184 QRSD: 68 QT: 426 QTc: 456 [place]: P: 66 NH: 184 QRS: 49 T: 36 INTERPRETIVE STATEMENTS: Normal sinus rhythm Low voltage QRS Borderline ECG Compared to ECG 09/29/2018 02:34:45 Sinus bradycardia no longer present Electronically Signed On 10-24-18 11:42:39 PARI MUTUEL TICKET CASHIER by Alex Naqvi
[2018-10-24] MEDS ORDERED: FENTANYL CITR 100 MCG/2 ML ONE (11:50)
--- NOTE | 2018-10-24 12:02 | RAD REPORT ---
EXAM DESCRIPTION: RAD - Chest Single View - 10/24/2018 11:49 am CLINICAL HISTORY: CHEST PAIN Chest pain. COMPARISON: Chest Single View dated 09/28/2018; Chest Single View dated 06/25/2018; Chest Single View dated 11/18/2017; CHEST PA AND LAT 2 VIEW dated 08/14/2015 FINDINGS: Portable technique limits examination quality. Mild interstitial pulmonary edema is suspected. The heart is mildly prominent in size. No displaced f ractures. IMPRESSION: Mild CHF versus volume overload pattern.
[2018-10-24] MEDS ORDERED: MORPHINE 4 MG/ML SYR ONE ×2 (13:55→17:18)
[2018-10-24] MEDS ORDERED: DIPHENHYDRAMINE 50 MG/ML VIAL ONE (16:18)
[2018-10-24] MEDS ORDERED: ACETAMINOPHEN 325 MG TABLET ONE (16:18)
[2018-10-24] MEDS ORDERED: HYDROCORTISONE SUC 100 MG INJ ONE (16:18)
[2018-10-24] MEDS ORDERED: ONDANSETRON 4 MG/2 ML VIAL ONE (17:18)
--- NOTE | 2018-10-24 17:46 | P.HP ---
Certification for Inpatient Patient admitted to: Observation With expected LOS: <2 Midnights Practitioner: I am a practitioner with admitting privileges, knowledge of patient current condition, hospital course, and medical plan of care. Services: Services provided to patient in accordance with Admission requirements found in Title 42 Section 412.3 of the Code of Federal Regulations Patient History Date of Service: 10/24/18 Reason for admission: SEVERE BACK AND PELVIC PAIN History of Present Illness: SHAVON HAS ADVANCED BREAST CANCER WITH METS TO BONES. SHE IS ON PALLIATIVE CHEMO FOR NOW. ONCOLOGISTS CAN'T DO MUCH ANY LONGER. SHE HAS BEEN ADVISED TO GET ON HOSPICE BY DR ZHAO BUT SHE DOES NOT WANT TO QUIT THE PILL CHEMO SHE TAKES. HER PAIN IS UNCONTROLLED ON 60 MG BID MSO4 AND NORCO. SHE NOW IS SCARED OF PAIN AND MAY AGREE ON HOSPICE. Allergies indomethacin [From Indocin] Adverse Reaction (Intermediate, Verified 10/24/18 19 :31) headache indomethacin sodium [From Indocin] Adverse Reaction (Intermediate, Verified 19:31) headache meperidine HCl [From Demerol] Adverse Reaction (Intermediate, Verified 10/24/18 19:31) Itching/Hives/Rash niacin [From Niaspan Starter Pack] Adverse Reaction (Intermediate, Verified 19:31) syncope rosuvastatin calcium [From Crestor] Adverse Reaction (Intermediate, Verified 19:31) muscle cramps Home Medications: Cholecalciferol (Vitamin D3) [Vitamin D3] 1,000 unit PO DAILY 08/14/15 Esomeprazole Mag Trihydrate [Nexium] 40 mg PO DAILY 08/14/15 Gabapentin [Neurontin*] 300 mg PO BID 08/14/15 Levothyroxine [Synthroid*] 50 mcg PO DAILY 08/14/15 Morphine Sulfate [Morphine Sulfate ER] 60 mg PO Q12H 08/14/15 Nifedipine Xl [Procardia Xl*] 30 mg PO DAILY 08/14/15 Venlafaxine HCl [Venlafaxine HCl ER] 75 mg PO DAILY 08/14/15 Bimatoprost [Lumigan Opthalmic Drops*] 1 drop OPTH BEDTIME 09/29/18 Brimonidine Tartrate/Timolol [Combigan 0.2%-0.5% Eye Drops] 1 drop OPTH BID Rivaroxaban [Xarelto*] 1 tab PO DAILY 6PM 09/29/18 Diphenhydramine [Benadryl Tab/Cap] 25 mg PO BID 10/24/18 Esomeprazole Magnesium [Nexium] 40 mg PO DAILY 10/24/18 Hydrocodone 10/APAP 325 [[place] 10/325*] 1 tab PO Q4H PRN 10/24/18 Iron Fum & Ps Cmp/Vit C & B [Integra Capsule] 1 tab PO DAILY 10/24/18 Ropinirole HCl [Requip*] 2 mg PO BID 10/24/18 Verzenio 150 mg PO BID 10/24/18 - Past Medical/Surgical History Diabetic: No -: Breast Cancer 4th Stage -: Raynaud Syndrome -: HTN -: Atrial Fibrillation -: GErd -: HLD -: blood clot 04/08/13 -: Cholecystectomy -: Cataract Sx -: -: Bunion Sx - Family History Father -: Heart disease, Hypertension, Lung disease, Cancer, Other (see notes) Notes: Emphysema, Colon Cancer, Allergies, COPD, CHF Mother -: Heart disease, Hypertension, Cancer Notes: Colon Cancer, CHF, Gallbladder issues - Social History Alcohol use: No CD- Drugs: No Caffeine use: Yes Review of Systems 10-point ROS is otherwise unremarkable General: Weakness, Malaise Physical Examination - Physical Exam General: Alert, Moderate distress, Severe distress HEENT: Atraumatic, PERRLA, Mucous membr. moist/pink, EOMI, Sclerae nonicteric Neck: Supple, 2+ carotid pulse no bruit, No LAD, Without JVD or thyroid abnormality Respiratory: Clear to auscultation bilaterally, Normal air movement Cardiovascular: Regular rate/rhythm, Normal S1 S2 Gastrointestinal: Normal bowel sounds, No tenderness Musculoskeletal: No tenderness Integumentary: No rashes Neurological: Normal gait, Normal speech, Normal strength at 5/5 x4 extr, Normal tone, Normal affect Lymphatics: No axilla or inguinal lymphadenopathy - Studies Laboratory Data (last 24 hrs) 10/24/18 10:55: PT 14.7 H, INR 1.24 10/24/18 10:55: WBC 3.6 L, Hgb 6.8 L*, Hct 19.7 L*, Plt Count 167 10/24/18 10:55: Sodium 138, Potassium 3.8, BUN 12, Creatinine 0.85, Glucose 86, Magnesium 2.0, Total Bilirubin 0.3, AST 36, ALT 14, Alkaline Phosphatase 92 Assessment and Plan - Problems (Diagnosis) (1) Anemia due to chemotherapy Current Visit: Yes Status: Chronic Plan: I CALLED DR CECE HARRELL TALKED TO HER. SHE SAYS CHEMO AND CANCER BOTH ARE GIVING RISE TO ANEMIA. SHE HOPES THAT SHAVON AGREES FOR HOSPICE. (2) Widespread metastatic malignant neoplastic disease Onset Date: 08/15/15 Current Visit: No Status: Acute Plan: CHR SEVERE PAIN HIGH DOSE OF MSO4 IS NOT HELPING. (3) Breast cancer Onset Date: 08/15/15 Current Visit: No Status: Chronic Plan: RETRACTED WITH METS. PROGNOSIS IS POOR. - Advance Directives Does patient have a Living Will: Yes Does patient have a Durable POA for Healthcare: Yes
[2018-10-24 19:40] VITALS: BMI 28.3
[2018-10-24] MEDS ORDERED: HYDROCODONE/APAP 10/325 TAB PO PRN (20:26)
[2018-10-24] MEDS: ROPINIROLE HCL 1 MG TAB PO SCH (21:00)
[2018-10-24] MEDS: HOME MED 1 EA UNK (Brimonidine Tartrate/Timolol [Combigan 0.2%-0.5% Eye Drops] 1 DROP) OPTH SCH (21:00)
[2018-10-24] MEDS ORDERED: BIMATOPROST OPHTH DROPS/2.5 ML BTL OPTH SCH (21:00)
[2018-10-24] MEDS: VERZENIO 150 MG PO SCH (21:00)
[2018-10-24] MEDS: DIPHENHYDRAMINE 25 MG TAB/CAP PO SCH (21:00)
[2018-10-24] MEDS: GABAPENTIN 100 MG CAP PO SCH (21:01)
[2018-10-24] MEDS: MORPHINE 15 MG IR TAB PO SCH (21:01)
[2018-10-24] MEDS ORDERED: NA CHLORIDE 0.9% 500 ML ONE (23:27)
[2018-10-25] MEDS: MORPHINE 4 MG/ML SYR IV PRN ×6 (02:03→17:18)
[2018-10-25] MEDS ORDERED: PANTOPRAZOLE 40MG TABLET PO SCH (06:30)
[2018-10-25] MEDS ORDERED: LEVOTHYROXINE SOD 0.05 MG TABLET PO SCH (06:30)
[2018-10-25] MEDS: GABAPENTIN 100 MG CAP PO SCH (08:02)
[2018-10-25] MEDS: ROPINIROLE HCL 1 MG TAB PO SCH (08:03)
[2018-10-25] MEDS: DIPHENHYDRAMINE 25 MG TAB/CAP PO SCH (08:03)
[2018-10-25] MEDS: HOME MED 1 EA UNK (Brimonidine Tartrate/Timolol [Combigan 0.2%-0.5% Eye Drops] 1 DROP) OPTH SCH (08:09)
[2018-10-25] MEDS: VERZENIO 150 MG PO SCH (08:10)
[2018-10-25] MEDS ORDERED: NIFEDIPINE XL 30 MG TABLET PO SCH (09:00)
[2018-10-25] MEDS ORDERED: VENLAFAXINE HCL XR 75 MG CAP PO SCH (09:00)
[2018-10-25] MEDS ORDERED: VITAMIN D 1000 UNIT TAB PO SCH (09:00)
[2018-10-25 09:48] LABS: Absolute Lymphocytes (CBC) 0.3 K/uL (0.7-4.9); Absolute Monocytes 0.2 K/uL (0.1-1.3); Absolute Neutrophil 2.9 K/uL (1.8-8.0); Basophils % 0.8 % (0-1.3); Eosinophils % 2.2 % (0-4.4); Hematocrit 33.2 % (36.0-45.0); Lymphocytes % 8.8 % (15.3-44.8); MPV 7.1 fL (7.6-11.3); Monocytes % 5.8 % (3.3-12.3); RBC Red Blood Cell Count 3.56 M/uL (3.86-4.86)
[2018-10-25 09:56] LABS: Potassium 3.6 mmol/L (3.5-5.1)
[2018-10-25] MEDS: MORPHINE 15 MG IR TAB PO SCH (11:05)
[2018-10-25] MEDS ORDERED: FENTANYL 50 MCG/PATCH TD SCH (13:15)
--- NOTE | 2018-10-25 13:25 | EKG ---
Test Date: 2018-10-25 Test Time: 08:53:31 Stained Glass Window Designer: JUAN MANUEL MEASUREMENT RESULTS: Intervals: Rate: 57 DC: 202 QRSD: 70 QT: 458 QTc: 445 [place]: P: 39 DC: 202 QRS: 58 T: 62 INTERPRETIVE STATEMENTS: Sinus bradycardia Low voltage QRS Borderline ECG Compared to ECG 10/24/2018 10:54:54 Sinus rhythm no longer present Electronically Signed On 10-25-18 13:24:03 TONGUE AND GROOVE MACHINE FEEDER by Alex Naqvi
[2018-10-25 15:28] VITALS: O2SAT 94
[2018-10-25 17:39] VITALS: TEMP 98.6
[2018-10-25] MEDS ORDERED: DEXAMETHASONE 4 MG/ML VIAL IV SCH (18:00)
[2018-10-25] MEDS ORDERED: RIVAROXABAN 10 MG TABLET PO SCH (18:00)
[2018-10-25 18:22] VITALS: BP 127/60
--- NOTE | 2018-10-25 19:18 | P.DS ---
Admission Date: 10/24/18 Discharge Date: 10/25/18 Disposition: ROUTINE DISCHARGE Reason for Admission: SEVERE BACK AND PELVIC PAIN - Problems (1) Anemia due to chemotherapy Onset Date: 10/25/18 Status: Chronic (2) Widespread metastatic malignant neoplastic disease Onset Date: 08/15/15 Status: Acute (3) Breast cancer Onset Date: 08/15/15 Status: Chronic Brief History of Present Illness: SHAVON HAS ADVANCED BREAST CANCER WITH METS TO BONES. SHE IS ON PALLIATIVE CHEMO FOR NOW. ONCOLOGISTS CAN'T DO MUCH ANY LONGER. SHE HAS BEEN ADVISED TO GET ON HOSPICE BY DR ZHAO BUT SHE DOES NOT WANT TO QUIT THE PILL CHEMO SHE TAKES. HER PAIN IS UNCONTROLLED ON 60 MG BID MSO4 AND NORCO. SHE NOW IS SCARED OF PAIN AND MAY AGREE ON HOSPICE. SHAVON HAS AGREED TO HOSPICE NOW. HER CANCER IS NOT CONTROLLED. SHE IS IN TOO MUCH PAIN. MORPHINE IS NOT HELPING. HER CURRENT CANCER THERAPY IS NOT WORKING. SHE WILL BE ADMITTED TO HOSPICE IN AM. Vital Signs/Physical Exam: Temp Pulse Resp BP Pulse Ox 98.6 F 67 16 127/60 94 10/25/18 16:00 10/25/18 17:00 10/25/18 16:00 10/25/18 17:00 10/25/18 16:00 Laboratory Data at Discharge: WBC 3.5 K/uL (4.3-10.9) L 10/25/18 09:20 Hgb 11.5 g/dL (12.0-15.0) L D 10/25/18 09:20 Hct 33.2 % (36.0-45.0) L D 10/25/18 09:20 Plt Count 138 K/uL (152-406) L 10/25/18 09:20 PT 14.7 SECONDS (9.5-12.5) H 10/24/18 10:55 INR 1.24 10/24/18 10:55 Sodium 140 mmol/L (136-145) 10/25/18 09:20 Potassium 3.6 mmol/L (3.5-5.1) 10/25/18 09:20 BUN 12 mg/dL (7-18) 10/25/18 09:20 Creatinine 0.90 mg/dL (0.55-1.3) 10/25/18 09:20 Glucose 89 mg/dL (74-106) 10/25/18 09:20 Magnesium 2.0 mg/dL (1.8-2.4) 10/24/18 10:55 Total Bilirubin 0.3 mg/dL (0.2-1.0) 10/24/18 10:55 AST 36 U/L (15-37) 10/24/18 10:55 ALT 14 U/L (12-78) 10/24/18 10:55 Alkaline Phosphatase 92 U/L (45-117) 10/24/18 10:55 Home Medications: Cholecalciferol (Vitamin D3) [Vitamin D3] 1,000 unit PO DAILY 08/14/15 Esomeprazole Mag Trihydrate [Nexium] 40 mg PO DAILY 08/14/15 Gabapentin [Neurontin*] 300 mg PO BID 08/14/15 Levothyroxine [Synthroid*] 50 mcg PO DAILY 08/14/15 Morphine Sulfate [Morphine Sulfate ER] 60 mg PO Q12H 08/14/15 Nifedipine Xl [Procardia Xl*] 30 mg PO DAILY 08/14/15 Venlafaxine HCl [Venlafaxine HCl ER] 75 mg PO DAILY 08/14/15 Bimatoprost [Lumigan Opthalmic Drops*] 1 drop OPTH BEDTIME 09/29/18 Brimonidine Tartrate/Timolol [Combigan 0.2%-0.5% Eye Drops] 1 drop OPTH BID Rivaroxaban [Xarelto*] 1 tab PO DAILY 6PM 09/29/18 Diphenhydramine [Benadryl Tab/Cap] 25 mg PO BID 10/24/18 Esomeprazole Magnesium [Nexium] 40 mg PO DAILY 10/24/18 Hydrocodone 10/APAP 325 [[place] 10/325*] 1 tab PO Q4H PRN 10/24/18 Iron Fum & Ps Cmp/Vit C & B [Integra Capsule] 1 tab PO DAILY 10/24/18 Ropinirole HCl [Requip*] 2 mg PO BID 10/24/18 Verzenio 150 mg PO BID 10/24/18 Diet: Regular Followup: Nick Alexandre MD [ACTIVE - CAN ADMIT] -
== END 2018-10-25 18:57 | disposition home or self-care (01) ==
LOC: ER 10:13 → ERHOLD 15:35 → 2ND 16:50
PROVIDERS: ADMIT Internal Medicine; ATTEND Internal Medicine
PROC: 30233N1 Transfusion of Nonautologous Red Blood Cells into Peripheral Vein, Percutaneous Approach (ICD-10-PCS; principal; 2018-10-24)
DX: D64.81 Anemia due to antineoplastic chemotherapy (principal); C50.919 Malignant neoplasm of unspecified site of unspecified female breast; C79.51 Secondary malignant neoplasm of bone; I10 Essential (primary) hypertension; I48.91 Unspecified atrial fibrillation
CPT/HCPCS: 36415; 36430; 71045; 80048 ×2; 80076; 83735; 83880; 84484; 85025 ×2; 85610; 86850; 86900; 86901; 93005 ×2; 96374; 96375; 99285; J1720; J2405; J3010; P9016 ×3

== ENCOUNTER 2018-10-28 13:37 | Inpatient (IN) | payer OTHER ==
--- OUTSIDE RECORDS SUMMARY | 2018-10-28 15:41 | XMS REPORT | Clinical Summary ---
:[address] 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/2017 Hypothyroid 02/01/2017 Essential hypertension 02/01/2017 Mood disorder 02/01/2017 Metastatic breast cancer 01/13/2017 Encounters Date Type Specialty Care Team Description 06/25/2018 - [facility], Paroxysmal atrial fibrillation (HCC); 06/27/2018 Encounter Medicine Trudy Jacobson, Malignant neoplasm of female breast, unspecified estrogen receptor status, unspecified laterality, unspecified site of breast (HCC); Essential hypertension; Alejandra Vieyra Fall, initial encounter; Carmelita Sarabia, History of DVT (deep vein thrombosis); Leptomeningeal disease; Danika Clements termite treater helper (current) use of anticoagulants; MD Kathy Mood disorder (HCC); Spine metastasis (HCC); Subdural hematoma (HCC); Injury of head, initial encounter; Supratherapeutic INR after 10/27/2017 Social History Tobacco Use Types Packs/Day Years [...] procedure are in the results section. after 10/27/2017 Results TRANSFUSION SERVICE REPORT - SCAN (06/28/2018 6:02 PM CDT)Only the most recent of2 resultswithin the time period is included. Narrative Performed At RHYTHM STRIP - SCAN (06/28/2018 11:20 AM CDT) Narrative Performed At Prepare plasma (06/27/2018 11:54 PM CDT) Unit ABO A Pos SAFETRACE [place] UNIT NUMBER [id number] [place] Status TRANSFUSED [place]ACE [place] Blood Bank Product FFP SAFETRACE [place] PRODUCT CODE [id number] SAF[place]ACE [place] Specimen Blood Performing Organization Address City/State/Zipcode Phone Number SAFETRACE [place] CT brain without IV contrast (06/27/2018 7:04 AM CDT)Only the most recent of3 resultswithin the time period is included. Narrative Performed At FINAL REPORT [facility] CT head without contrast. Comparisons: June [...] left with no mass effect.. Signed: Ina Wayen MD Report Verified Date/Time:06/27/2018 07:54:47 Reading Location: [address] Neuro Reading Room Procedure Note Interface, [...] Report Verified Date/Time: 06/27/2018 07:54:47 Reading Location: [facility] B1 C013V Neuro Reading Room Performing Organization Address City/State/Zipcode Phone Number GE RIS CBC with platelet count + automated diff (06/27/2018 5:11 AM CDT)Only the most recent of2 resultswithin the time period is included. WBC 3.3 (L) 3.5 - 10.5 K/L [facility] RBC 2.64 (L) 3.93 - 5.22 M/L [facility] Hemoglobin 8.1 (L) 11.2 - 15.7 GM/DL [facility] Hematocrit 26.1 (L) 34.1 - 44.9 % [facility] MCV 98.9 (H) 79.4 - 94.8 fL [facility] MCH 30.7 25.6 - 32.2 pg [facility] MCHC 31.0 (L) 32.2 - 35.5 GM/DL [facility] RDW 16.3 (H) 11.7 - 14.4 % [facility] Platelets 159 150 - 450 K/CU MM [facility] MPV 8.9 (L) 9.4 - 12.3 fL [facility] nRBC 0 0 - 0 /100 WBC [facility] % Neutros 74 % [facility] % Lymphs 12 % [facility] % Monos 7 % [facility] % Eos 4 % [facility] % Baso 0 % [facility] # Neutros 2.42 1.56 - 6.13 K/L [facility] # Lymphs 0.40 (L) 1.18 - 3.74 K/L [facility] # Monos 0.21 (L) 0.24 - 0.36 K/L [facility] # Eos 0.14 0.04 - 0.36 K/L [facility] # Baso 0.01 0.01 - 0.08 K/L [facility] Immature Granulocytes-Relative 2 (H) 0 - 1 % [facility] Specimen Blood - Arm, Left Performing Organization Address City/[facility] Phone Number [address] [address] [phone] CENTER Prothrombin time/INR (06/27/2018 5:11 AM CDT)Only the most recent of3 resultswithin the time period is included. Protime 15.3 (H) 11.7 - 14.7 seconds [facility] INR 1.2 <=5.9 [facility] Specimen Blood - Arm, Left Narrative Performed At [facility] RECOMMENDED COUMADIN/WARFARIN INR THERAPY RANGES STANDARD DOSE: 2.0 - 3.0 Includes: PROPHYLAXIS for venous thrombosis, systemic embolization; TREATMENT for venous thrombosis and/or pulmonary embolus. HIGH RISK: Target INR is 2.5-3.5 for patients with mechanical heart valves. Performing Organization Address City/[facility]/Zipcode Phone Number [address] [address] [phone] CENTER Magnesium (06/27/2018 5:11 AM CDT)Only the most recent of2 resultswithin the time period is included. Magnesium 2.1 1.6 - 2.6 mg/dL [facility] Specimen Blood - Arm, Left Performing Organization Address City/State/Zipcode Phone Number [facility] [address] [place] [address] [place] Basic metabolic panel (06/27/2018 5:11 AM CDT)Only the most recent of2 resultswithin the time period is included. Sodium 138 136 - 145 meq/L [facility] Potassium 4.0 3.5 - 5.1 meq/L [facility] Chloride 107 98 - 107 meq/L [facility] CO2 25 22 - 29 meq/L [facility] BUN 12 7 - 21 mg/dL [facility] Creatinine 0.86 0.57 - 1.25 mg/dL [facility] Glucose 98 70 - 105 mg/dL [facility] Calcium 10.0 8.4 - 10.2 mg/dL [facility] EGFR 65Comment: ESTIMATED GFR IS mL/min/1.73 sq m [facility] NOT ACCURATE CREATININE [facility] CENTER CLEARANCE IN PREDICTING GLOMERULAR FILTRATION RATE. ESTIMATED GFR IS NOT APPLICABLE FOR DIALYSIS PATIENTS. Specimen Blood - Arm, Left Performing Organization Address City/State/Zipcode Phone Number [facility] [address] [place] [address] [phone] [place] XR spine lumbar 2 or 3 views (06/26/2018 5:06 PM CDT) Narrative Performed At FINAL REPORT [facility] CLINICAL HISTORY: Back pain, concern for [...] MD Report Verified Date/Time:06/26/2018 17:38:08 Reading Location: [address] Reading Room Procedure Note Interface, External [...] Report Verified Date/Time: 06/26/2018 17:38:08 Reading Location: [address] Reading Room Performing Organization Address [facility] Phone Number GE RIS XR hip 2 views left (06/26/2018 4:45 PM CDT) Narrative Performed At FINAL REPORT [place] CLINICAL HISTORY: Left hip pain, concern for [...] MD Report Verified Date/Time:06/26/2018 17:33:22 Reading Location: [address] Reading Room Procedure Note Interface, External [...] Report Verified Date/Time: 06/26/2018 17:33:22 Reading Location: [address] Reading Room Performing Organization Address [facility] Phone Number GE RIS Venous doppler legs bilateral (06/26/2018 10:55 AM CDT) Ejection Fraction [facility] CPACS Impressions Performed At Right Impression [facility] 1. There is no deep venous [...] PV LAB - Lower Extremities DVT Study [facility] Demographics Patient NamePHISARAH CALL Date of Study06/26/2018 SHILA 73 Visit [id number] Female of Birth1945 Number Referring Alejandra Kaur [id number] Physician Cornell Vieyra MD Tap Dancer Marzena Rodríguez RVTInterpreting Ganesh Merlos, RPVI Procedure [...] Study 06/26/2018 SHILA Age 73 Visit Number [id number] Gender Female Date of 1945 Number Referring Alejandra Mae Room Number [id number] Physician Cornell Vieyra MD Tap Dancer Marzena Rodríguez T Interpreting Casi Lantigua, Physician [...] AM CDT) Narrative Performed At FINAL REPORT [facility] CT head without contrast. Reason for [...] MD Report Verified Date/Time:06/26/2018 08:23:10 Reading Location: [facility] C013 Neuro Reading Room Procedure Note [...] Report Verified Date/Time: 06/26/2018 08:23:10 Reading Location: [place] [id number] Neuro Reading Room Performing Organization Address City/State/Zipcode Phone Number GE RIS Type and screen, automated (06/26/2018 5:46 AM CDT) ABO/RH AUTOMATED (BEAKER) A POSITIVE [facility] Ab Scrn NEGATIVE [facility] Specimen Blood Performing Organization Address City/[facility]/Zipcode Phone Number [facility] [address], [place] [id number] after 10/27/2017 Insurance Payer Benefit Plan / Group Subscriber ID Type Phone Address MEDICARE MEDICARE A B xxxxxxxxxxx Medicare AETNA - MGD CARE AETNA INDEMNITY NON xxxxxxxxx Comm CONTR [employer] [place] xxxxxxxx Med[employer]ap SUPPLEMENT/INDIVIDUAL Advance Directives For more information, please contact:[facility] [place], [place] [phone] Code Status Date Activated Date Inactivated Comments Full Code 06/25/2018 9:01 PM 06/27/2018 5:18 PM This code status was determined by: Patient Full Code 01/13/2017 1:44 AM 01/15/2017 2:36 PM This code status was determined by: Patient
--- OUTSIDE RECORDS SUMMARY | 2018-10-28 15:42 | XMS REPORT ---
:1945 [facility] Address [address] [place] [address] Dr. Mason [address] [place] [id number] Care Team Providers Name Role Phone NATALIE [...] Wayne Verified Date/Time: 06/27/2018 07:54:47 Reading Location: [address] Neuro Reading Room ESIUM 2018-06-27 06:11:00 Test Item Value Reference Range Comments MAGNESIUM (BEAKER) (test zvbb=424) 2.1 mg/dL 1.6-2.6 BASIC METABOLIC [id number] 06:11:00 Test Item Value Reference Range Comments SODIUM (BEAKER) (test 138 meq/L 136-145 kkla=291) POTASSIUM (BEAKER) (test 4.0 meq/L 3.5-5.1 zlxh=648) CHLORIDE (BEAKER) (test 107 meq/L 98-107 perv=927) CO2 (BEAKER) (test 25 meq/L 22-29 zgjo=172) BLOOD UREA NITROGEN 12 mg/dL 7-21 (BEAKER) (test eyub=233) CREATININE (BEAKER) (test 0.86 mg/dL 0.57-1.25 ujiy=240) GLUCOSE RANDOM (BEAKER) 98 mg/dL 70-105 (test jkcq=037) CALCIUM (BEAKER) (test 10.0 mg/dL 8.4-10.2 ybdp=528) EGFR (BEAKER) (test 65 mL/min/1.73 sq m ESTIMATED GFR IS NOT rjbu=0768) ACCURATE CREATININE CLEARANCE IN PREDICTING GLOMERULAR FILTRATION RATE. ESTIMATED GFR IS NOT APPLICABLE FOR DIALYSIS PATIENTS. PROTHROMBIN TIME/[id number] 05:47:00 Test Item Value Reference Range Comments PROTIME (BEAKER) (test qkrs=223) 15.3 seconds 11.7-14.7 INR (BEAKER) (test dtwj=655) 1.2 <=5.9 RECOMMENDED COUMADIN/WARFARIN INR THERAPY RANGESSTANDARD DOSE: 2.0 - 3.0 Includes: PROPHYLAXIS forvenous thrombosis, systemic embolization; TREATMENT for venous thrombosis and/or pulmonary embolus.HIGH RISK: Target INR is 2.5-3.5 for patients with mechanical heart valves.CBC W/PLT COUNT & AUTO [id number] 05:36:00 Test Item Value Reference Range Comments WHITE BLOOD CELL COUNT (BEAKER) (test iojz=835) 3.3 K/ L 3.5-10.5 RED BLOOD CELL COUNT (BEAKER) (test ylve=180) 2.64 M/ L 3.93-5.22 HEMOGLOBIN (BEAKER) (test eijz=094) 8.1 GM/DL 11.2-15.7 HEMATOCRIT (BEAKER) (test iozc=805) 26.1 % 34.1-44.9 MEAN CORPUSCULAR VOLUME (BEAKER) (test souj=821) 98.9 fL 79.4-94.8 MEAN CORPUSCULAR HEMOGLOBIN (BEAKER) (test 30.7 pg 25.6-32.2 wgse=538) MEAN CORPUSCULAR HEMOGLOBIN CONC (BEAKER) (test 31.0 GM/DL 32.2-35.5 acxc=167) RED CELL DISTRIBUTION WIDTH (BEAKER) (test 16.3 % 11.7-14.4 hiww=530) PLATELET COUNT (BEAKER) (test zbzi=821) 159 K/CU MM 150-450 MEAN PLATELET VOLUME (BEAKER) (test axmf=132) 8.9 fL 9.4-12.3 NUCLEATED RED BLOOD CELLS (BEAKER) (test 0 /100 WBC 0-0 phsk=769) NEUTROPHILS RELATIVE PERCENT (BEAKER) (test 74 % hazo=864) LYMPHOCYTES RELATIVE PERCENT (BEAKER) (test 12 % jbnt=387) MONOCYTES RELATIVE PERCENT (BEAKER) (test 7 % cfru=095) EOSINOPHILS RELATIVE PERCENT (BEAKER) (test 4 % qsxh=115) BASOPHILS RELATIVE PERCENT (BEAKER) (test 0 % bkox=042) NEUTROPHILS ABSOLUTE COUNT (BEAKER) (test 2.42 K/ L 1.56-6.13 zhxx=840) LYMPHOCYTES ABSOLUTE COUNT (BEAKER) (test 0.40 K/ L 1.18-3.74 gewo=713) MONOCYTES ABSOLUTE COUNT (BEAKER) (test 0.21 K/ L 0.24-0.36 uhfd=973) EOSINOPHILS ABSOLUTE COUNT (BEAKER) (test 0.14 K/ L 0.04-0.36 unsg=979) BASOPHILS ABSOLUTE COUNT (BEAKER) (test 0.01 K/ L 0.01-0.08 opjn=315) IMMATURE GRANULOCYTES-RELATIVE PERCENT (BEAKER) 2 % 0-1 (test wbdr=7719) RAD, SPINE, LUMBAR, 2 OR 3 [id number] 17:38:00Reason for exam:->back pain, concern for pathologic [...] Verified Date/Time: 06/26/2018 17:38: 08 Reading Location: [address] Reading Room RAD, HIP, 2 VIEWS, [id number] 17:33:00Reason for exam:->hip pain, concern for pathologic [...] Verified Date/Time: 06/26/2018 17:33:22 Reading Location : [address] Reading Room PROTHROMBIN TIME/[id number] 12:39:00 Test Item Value Reference Range Comments PROTIME (BEAKER) (test rqfa=451) 16.4 seconds 11.7-14.7 INR (BEAKER) (test fysv=889) 1.3 <=5.9 RECOMMENDED COUMADIN/WARFARIN INR THERAPY RANGESSTANDARD DOSE: 2.0 - 3.0 Includes: PROPHYLAXIS forvenous thrombosis, systemic embolization; TREATMENT for venous thrombosis and/or pulmonary embolus.HIGH RISK: Target INR is 2.5-3.5 for patients with mechanical heart valves.To follow up after FFP was givenCT, BRAIN, WITHOUT [id number] 08:23:00FINAL REPORT CT head without contrast. Reason [...] MDReport Verified Date/Time: 06/26/2018 08:23:10 Reading Location: [facility] B1 C013V Neuro Reading Room Electronically signed by: MARANDA HARRIS M.D. on 08:23 AMCT, SPINE, CERVICAL, WO [id number] 08:23:00FINAL REPORT CT head without contrast. Reason [...] Harrisort Verified Date/Time: 06/26/2018 08:23:10 Reading Location: [address] Neuro Reading Room Electronically signed by: MARANDA HARRIS M.D. on 08:23 [id number] 03:24:00 Test Item Value Reference Range Comments MAGNESIUM (BEAKER) (test skjm=287) 2.0 mg/dL 1.6-2.6 BASIC METABOLIC [id number] 03:24:00 Test Item Value Reference Range Comments SODIUM (BEAKER) (test 135 meq/L 136-145 tkas=192) POTASSIUM (BEAKER) (test 3.8 meq/L 3.5-5.1 fclf=191) CHLORIDE (BEAKER) (test 104 meq/L 98-107 oxsl=294) CO2 (BEAKER) (test 25 meq/L 22-29 ehug=575) BLOOD UREA NITROGEN 11 mg/dL 7-21 (BEAKER) (test hlhc=041) CREATININE (BEAKER) (test 0.92 mg/dL 0.57-1.25 xwqq=811) GLUCOSE RANDOM (BEAKER) 156 mg/dL 70-105 (test tllc=057) CALCIUM (BEAKER) (test 9.9 mg/dL 8.4-10.2 khgb=715) EGFR (BEAKER) (test 60 mL/min/1.73 sq m ESTIMATED GFR IS NOT ajay=1452) ACCURATE CREATININE CLEARANCE IN PREDICTING GLOMERULAR FILTRATION RATE. ESTIMATED GFR IS NOT APPLICABLE FOR DIALYSIS PATIENTS. CBC W/PLT COUNT & AUTO [id number] 03:06:00 Test Item Value Reference Range Comments WHITE BLOOD CELL COUNT (BEAKER) (test rjph=896) 4.2 K/ L 3.5-10.5 RED BLOOD CELL COUNT (BEAKER) (test ryrd=291) 2.84 M/ L 3.93-5.22 HEMOGLOBIN (BEAKER) (test oxkq=922) 8.9 GM/DL 11.2-15.7 HEMATOCRIT (BEAKER) (test jyrq=274) 27.5 % 34.1-44.9 MEAN CORPUSCULAR VOLUME (BEAKER) (test hyuq=904) 96.8 fL 79.4-94.8 MEAN CORPUSCULAR HEMOGLOBIN (BEAKER) (test 31.3 pg 25.6-32.2 mjnw=920) MEAN CORPUSCULAR HEMOGLOBIN CONC (BEAKER) (test 32.4 GM/DL 32.2-35.5 oxey=338) RED CELL DISTRIBUTION WIDTH (BEAKER) (test 16.5 % 11.7-14.4 nkws=739) PLATELET COUNT (BEAKER) (test pnbh=002) 143 K/CU MM 150-450 MEAN PLATELET VOLUME (BEAKER) (test lmbb=640) 8.3 fL 9.4-12.3 NUCLEATED RED BLOOD CELLS (BEAKER) (test 0 /100 WBC 0-0 gotl=940) NEUTROPHILS RELATIVE PERCENT (BEAKER) (test 83 % bjkr=766) LYMPHOCYTES RELATIVE PERCENT (BEAKER) (test 8 % fkbe=802) MONOCYTES RELATIVE PERCENT (BEAKER) (test 6 % cfiu=211) EOSINOPHILS RELATIVE PERCENT (BEAKER) (test 1 % faic=903) BASOPHILS RELATIVE PERCENT (BEAKER) (test 0 % peyd=980) NEUTROPHILS ABSOLUTE COUNT (BEAKER) (test 3.47 K/ L 1.56-6.13 lbxc=829) LYMPHOCYTES ABSOLUTE COUNT (BEAKER) (test 0.31 K/ L 1.18-3.74 neaw=406) MONOCYTES ABSOLUTE COUNT (BEAKER) (test 0.26 K/ L 0.24-0.36 xynv=931) EOSINOPHILS ABSOLUTE COUNT (BEAKER) (test 0.06 K/ L 0.04-0.36 kvhj=976) BASOPHILS ABSOLUTE COUNT (BEAKER) (test 0.01 K/ L 0.01-0.08 yfwk=123) IMMATURE GRANULOCYTES-RELATIVE PERCENT (BEAKER) 1 % 0-1 (test lgzx=0345) PROTHROMBIN TIME/[id number] 03:06:00 Test Item Value Reference Range Comments PROTIME (BEAKER) (test isib=599) 20.7 seconds 11.7-14.7 INR (BEAKER) (test cjrx=872) 1.8 <=5.9 RECOMMENDED COUMADIN/WARFARIN INR THERAPY RANGESSTANDARD DOSE: 2.0 - 3.0 Includes: PROPHYLAXIS forvenous thrombosis, systemic embolization; TREATMENT for venous thrombosis and/or pulmonary embolus.HIGH RISK: Target INR is 2.5-3.5 for patients with mechanical heart valves.CT, BRAIN, WITHOUT [id number] 21:34:00FINAL REPORT CT, BRAIN, WITHOUT CONTRAST INDICATION: [...] MDReport Verified Date/Time: 06/25/2018 21:34:01 Reading Location: [address] Body Reading Room 09: 34 PMCBC W/PLT COUNT & AUTO [id number] 08:04:00 Test Item Value Reference Range Comments WHITE BLOOD CELL COUNT (BEAKER) (test rlbk=127) 7.6 K/ L 4.0-10.0 RED BLOOD CELL COUNT (BEAKER) (test vieh=372) 3.35 M/ L 4.00-5.00 HEMOGLOBIN (BEAKER) (test bsoh=375) 9.7 GM/DL 12.0-15.0 HEMATOCRIT (BEAKER) (test vcff=178) 29.7 % 36.0-45.0 MEAN CORPUSCULAR VOLUME (BEAKER) (test lrcq=224) 88.4 fL 82.0-99.0 MEAN CORPUSCULAR HEMOGLOBIN (BEAKER) (test 28.9 pg 27.0-33.0 yrnd=324) MEAN CORPUSCULAR HEMOGLOBIN CONC (BEAKER) (test 32.7 GM/DL 32.0-36.0 wecv=387) RED CELL DISTRIBUTION WIDTH (BEAKER) (test 16.8 % 10.3-14.2 cljx=231) PLATELET COUNT (BEAKER) (test xeus=993) 240 K/CU MM 150-430 MEAN PLATELET VOLUME (BEAKER) (test ujte=370) 6.2 fL 6.5-10.5 NUCLEATED RED BLOOD CELLS (BEAKER) (test 0 /100 WBC 0-0 rqkd=915) NEUTROPHILS RELATIVE PERCENT (BEAKER) (test 83 % uwjl=749) LYMPHOCYTES RELATIVE PERCENT (BEAKER) (test 10 % jrnz=356) MONOCYTES RELATIVE PERCENT (BEAKER) (test 6 % wxfq=523) EOSINOPHILS RELATIVE PERCENT (BEAKER) (test 0 % wvwx=195) BASOPHILS RELATIVE PERCENT (BEAKER) (test 0 % ydlb=818) NEUTROPHILS ABSOLUTE COUNT (BEAKER) (test 6.31 K/ L 1.80-8.00 iopl=801) LYMPHOCYTES ABSOLUTE COUNT (BEAKER) (test 0.75 K/ L 1.48-4.50 zfhm=399) MONOCYTES ABSOLUTE COUNT (BEAKER) (test 0.47 K/ L 0.00-1.30 hywj=629) EOSINOPHILS ABSOLUTE COUNT (BEAKER) (test 0.02 K/ L 0.00-0.50 indf=238) BASOPHILS ABSOLUTE COUNT (BEAKER) (test 0.03 K/ L 0.00-0.20 wggm=017) 0.00POCT-GLUCOSE [id number] 08:02:00 Test Item Value Reference Range Comments POC-GLUCOSE METER (BEAKER) 146 mg/dL 70-110 TESTED AT [facility] [address] (test owdz=0948) [facility] [address] BASIC METABOLIC [id number] 06:13:00 Test Item Value Reference Range Comments SODIUM (BEAKER) (test 139 meq/L 136-145 yznp=886) POTASSIUM (BEAKER) (test 3.6 meq/L 3.5-5.1 uthf=038) CHLORIDE (BEAKER) (test 105 meq/L 98-107 bzzk=908) CO2 (BEAKER) (test 25 meq/L 22-29 aqjn=036) BLOOD UREA NITROGEN 21 mg/dL 7-21 (BEAKER) (test rnva=834) CREATININE (BEAKER) (test 0.88 mg/dL 0.57-1.25 ohxb=648) GLUCOSE RANDOM (BEAKER) 144 mg/dL 70-105 (test vruo=317) CALCIUM (BEAKER) (test 9.2 mg/dL 8.4-10.2 oune=035) EGFR (BEAKER) (test 63 mL/min/1.73 sq m ESTIMATED GFR IS NOT bzwb=1606) ACCURATE CREATININE CLEARANCE IN PREDICTING GLOMERULAR FILTRATION RATE. ESTIMATED GFR IS NOT APPLICABLE FOR DIALYSIS PATIENTS. PROTHROMBIN TIME/[id number] 05:53:00 Test Item Value Reference Range Comments PROTIME (BEAKER) (test sohz=550) 16.6 seconds 11.7-14.7 INR (BEAKER) (test gabe=782) 1.4 <=5.9 RECOMMENDED COUMADIN/WARFARIN INR THERAPY RANGESSTANDARD DOSE: 2.0 - 3.0 Includes: PROPHYLAXIS forvenous thrombosis, systemic embolization; TREATMENT for venous thrombosis and/or pulmonary embolus.HIGH RISK: Target INR is 2.5-3.5 for patients with mechanical heart valves.POCT-GLUCOSE [id number] 21:46:00 Test Item Value Reference Range Comments POC-GLUCOSE METER (BEAKER) 195 mg/dL 70-110 TESTED AT [address] (test krcg=8441) [facility] [address] POCT-GLUCOSE [id number] 15:39:00 Test Item Value Reference Range Comments POC-GLUCOSE METER (BEAKER) 104 mg/dL 70-110 TESTED AT [address] (test hamk=3891) [facility] [address] POCT-GLUCOSE [id number] 08:42:00 Test Item Value Reference Range Comments POC-GLUCOSE METER (BEAKER) 151 mg/dL 70-110 TESTED AT [address] (test lnef=7861) [facility] [address] POTASSIUM-STAT [id number] 08:42:00 Test Item Value Reference Range Comments POTASSIUM (BEAKER) (test whns=379) 4.2 meq/L 3.6-5.5 PROTHROMBIN [id number] 06:35:00 Test Item Value Reference Range Comments PROTIME (BEAKER) (test dykz=666) 19.9 seconds 11.7-14.7 INR (BEAKER) (test qgri=155) 1.7 <=5.9 RECOMMENDED COUMADIN/WARFARIN INR THERAPY RANGESSTANDARD DOSE: 2.0 - 3.0 Includes: PROPHYLAXIS forvenous thrombosis, systemic embolization; TREATMENT for venous thrombosis and/or pulmonary embolus.HIGH RISK: Target INR is 2.5-3.5 for patients with mechanical heart valves.POCT-GLUCOSE [id number] 17:41:00 Test Item Value Reference Range Comments POC-GLUCOSE METER (BEAKER) 225 mg/dL 70-110 TESTED AT [facility] [address] (test pqnt=0943) [facility] [address] [id number] 00:38:00 Test Item Value Reference Range Comments PHOSPHORUS (BEAKER) (test geqp=522) 2.2 mg/dL 2.3-4.7 [id number] 00:38:00 Test Item Value Reference Range Comments MAGNESIUM (BEAKER) (test rven=147) 2.0 mg/dL 1.6-2.6 BASIC METABOLIC [id number] 00:38:00 Test Item Value Reference Range Comments SODIUM (BEAKER) (test 138 meq/L 136-145 fumm=649) POTASSIUM (BEAKER) (test 3.1 meq/L 3.5-5.1 rktn=108) CHLORIDE (BEAKER) (test 106 meq/L 98-107 xjcn=238) CO2 (BEAKER) (test 23 meq/L 22-29 flty=213) BLOOD UREA NITROGEN 16 mg/dL 7-21 (BEAKER) (test xdbp=208) CREATININE (BEAKER) (test 0.76 mg/dL 0.57-1.25 wojl=102) GLUCOSE RANDOM (BEAKER) 151 mg/dL 70-105 (test eynb=268) CALCIUM (BEAKER) (test 8.6 mg/dL 8.4-10.2 twag=903) EGFR (BEAKER) (test 75 mL/min/1.73 sq m ESTIMATED GFR IS NOT yyrj=7979) ACCURATE CREATININE CLEARANCE IN PREDICTING GLOMERULAR FILTRATION RATE. ESTIMATED GFR IS NOT APPLICABLE FOR DIALYSIS PATIENTS. [id number] 00:35:00 Test Item Value Reference Range Comments PARTIAL THROMBOPLASTIN TIME (BEAKER) (test 34.9 seconds 22.5-36.0 njeb=804) PROTHROMBIN [id number] 00:34:00 Test Item Value Reference Range Comments PROTIME (BEAKER) (test jwla=407) 26.2 seconds 11.7-14.7 INR (BEAKER) (test irwl=903) 2.4 <=5.9 RECOMMENDED COUMADIN/WARFARIN INR THERAPY RANGESSTANDARD DOSE: 2.0 - 3.0 Includes: PROPHYLAXIS forvenous thrombosis, systemic embolization; TREATMENT for venous thrombosis and/or pulmonary embolus.HIGH RISK: Target INR is 2.5-3.5 for patients with mechanical heart valves.CBC (HEMOGRAM ONLY)[id number] 00:33:00 Test Item Value Reference Range Comments WHITE BLOOD CELL COUNT (BEAKER) (test skja=154) 5.3 K/ L 4.0-10.0 RED BLOOD CELL COUNT (BEAKER) (test cfya=818) 3.60 M/ L 4.00-5.00 HEMOGLOBIN (BEAKER) (test mzfr=114) 10.1 GM/DL 12.0-15.0 HEMATOCRIT (BEAKER) (test nbca=130) 31.7 % 36.0-45.0 MEAN CORPUSCULAR VOLUME (BEAKER) (test mxzc=341) 88.1 fL 82.0-99.0 MEAN CORPUSCULAR HEMOGLOBIN (BEAKER) (test 28.0 pg 27.0-33.0 tfqf=912) MEAN CORPUSCULAR HEMOGLOBIN CONC (BEAKER) (test 31.7 GM/DL 32.0-36.0 lxsy=392) RED CELL DISTRIBUTION WIDTH (BEAKER) (test 16.6 % 10.3-14.2 dpdk=784) PLATELET COUNT (BEAKER) (test ncpq=264) 260 K/CU MM 150-430 MEAN PLATELET VOLUME (BEAKER) (test qhsw=226) 5.8 fL 6.5-10.5 NUCLEATED RED BLOOD CELLS (BEAKER) (test 0 /100 WBC 0-0 maan=049) 0.00
[2018-10-28] MEDS: METHADONE HCL 10 MG TAB PO SCH ×2 (17:25→23:09)
[2018-10-28] MEDS: HYDROMORPHONE/PCA 0 / ML SYR IV PRN (17:44)
[2018-10-28] MEDS ORDERED: FENTANYL 50 MCG/PATCH TD SCH (18:00)
[2018-10-28 18:41] VITALS: BMI 26.5
--- NOTE | 2018-10-28 20:05 | P.HP ---
Certification for Inpatient Patient admitted to: Inpatient With expected LOS: >2 Midnights Patient will require the following post-hospital care: Hospice Practitioner: I am a practitioner with admitting privileges, knowledge of patient current condition, hospital course, and medical plan of care. Services: Services provided to patient in accordance with Admission requirements found in Title 42 Section 412.3 of the Code of Federal Regulations Patient History Date of Service: 10/28/18 Reason for admission: INTRACTABLE PAIN History of Present Illness: SHAVON HAS END STAGE BREAST CANCER WITH METS TO BONES. SHE HAS INTRACTABLE PAIN. MORPHINE EVERY 20 MG EVERY 2 HOURS DID NOT CONTROL HER PAIN. I STARTED DURAGESIC PATCH 50 MCG YESTERDAY. SHE IS STILL IN SEVERE PAIN. SHE IS ADMITTED TO CONTROL PAIN AND COMBINE IV WITH ORAL MEDS TO LATER TAPER OFF THE CENTERLESS GRINDER OPERATOR PUMP IF POSSIBLE. Allergies indomethacin [From Indocin] Adverse Reaction (Intermediate, Verified 10/24/18 19 :31) headache indomethacin sodium [From Indocin] Adverse Reaction (Intermediate, Verified 19:31) headache meperidine HCl [From Demerol] Adverse Reaction (Intermediate, Verified 10/24/18 19:31) Itching/Hives/Rash niacin [From Niaspan Starter Pack] Adverse Reaction (Intermediate, Verified 19:31) syncope rosuvastatin calcium [From Crestor] Adverse Reaction (Intermediate, Verified 19:31) muscle cramps Home Medications: Acetaminophen [Tylenol*] 650 mg AK Q4H PRN 10/28/18 Ciprofloxacin HCl [Cipro 500 MG Tablet] 500 mg PO BID PRN 10/28/18 Diazepam [Valium] 10 mg PO Q6H PRN 10/28/18 LORazepam [Ativan*] 0.5 mg SL Q2H PRN 10/28/18 Lactulose 30 ml PO DAILY PRN 10/28/18 Morphine Sulfate [Roxanol] 1 ml SL Q2H PRN 10/28/18 Ondansetron HCl [Zofran] 4 mg PO Q4H PRN 10/28/18 Pentazocine HCl/Naloxone HCl [Pentazocine-Naloxone Tablet] 1 tab PO Q6H PRN Scopolamine 1 patch TD SEECOM PRN 10/28/18 - Past Medical/Surgical History Has patient received pneumonia vaccine in the past: Yes Diabetic: No -: Breast Cancer 4th Stage -: Raynaud Syndrome -: HTN -: Atrial Fibrillation -: GErd -: HLD -: blood clot 04/08/13 -: Cholecystectomy -: Cataract Sx -: -: Bunion Sx - Family History Father -: Heart disease, Hypertension, Lung disease, Cancer, Other (see notes) Notes: Emphysema, Colon Cancer, Allergies, COPD, CHF Mother -: Heart disease, Hypertension, Cancer Notes: Colon Cancer, CHF, Gallbladder issues - Social History Smoking Status: Never smoker Alcohol use: Yes CD- Drugs: Yes Caffeine use: Yes Place of Residence: Home Review of Systems 10-point ROS is otherwise unremarkable General: Weakness, Malaise, As per HPI Musculoskeletal: As per HPI (SHE IS IN SEVERE PAIN AND WAS NOT ABLE TO LAY DOWN ON THE BED. SHE WAS SITTING IN RECLINER ALL THESE DAYS.) Integumentary: As per HPI (DIAPHORESIS.) Physical Examination - Vital Signs Temperature: 97.2 F Blood Pressure: 131/72 Pulse: 72 Respirations: 18 Pulse Ox (%): 100 - Physical Exam General: Alert, Cachectic, Severe distress HEENT: Atraumatic, PERRLA, Mucous membr. moist/pink, EOMI, Sclerae nonicteric Neck: Supple, 2+ carotid pulse no bruit, No LAD, Without JVD or thyroid abnormality Respiratory: Clear to auscultation bilaterally, Normal air movement, Other ( TENDER RIBS.) Cardiovascular: Regular rate/rhythm, Normal S1 S2 Gastrointestinal: Normal bowel sounds, No tenderness Musculoskeletal: No tenderness Integumentary: No rashes Neurological: Normal gait, Normal speech, Normal strength at 5/5 x4 extr, Normal tone, Normal affect Lymphatics: No axilla or inguinal lymphadenopathy Assessment and Plan - Problems (Diagnosis) (1) Widespread metastatic malignant neoplastic disease Onset Date: 08/15/15 Current Visit: No Status: Acute Plan: END STAGE CANCER INTRACTABLE PAIN. IV PAIN MEDS TO CONTROL AND TAPER OFF WHEN ORAL MEDS TAKE EFFECT. SHE IS ON HOSPICE AND DNR PATIENT AND FAMILY AGREE. - Advance Directives Does patient have a Living Will: Yes Does patient have a Durable POA for Healthcare: Yes
[2018-10-28] MEDS ORDERED: SODIUM CHLORIDE 0.9% 10ML INJ IV PRN (21:53)
[2018-10-28] MEDS ORDERED: PANTOPRAZOLE 40 MG INJ IVP ONE (21:54)
[2018-10-28] MEDS ORDERED: NA CHLORIDE 0.9% 250 ML ONE (22:23)
[2018-10-29] MEDS: METHADONE HCL 10 MG TAB PO SCH ×4 (05:07→23:36)
[2018-10-29] MEDS: HYDROMORPHONE/PCA 0 / ML SYR IV PRN (05:10)
[2018-10-29] MEDS ORDERED: NA CHLORIDE 0.9% 250 ML ONE ×2 (05:21→14:26)
[2018-10-29] MEDS ORDERED: PANTOPRAZOLE 40 MG INJ IVP SCH (09:00)
[2018-10-29] MEDS ORDERED: NALOXONE 0.4 MG/ML VIAL IV PRN (09:41)
--- NOTE | 2018-10-29 10:00 | P.PN ---
Subjective Date of Service: 10/29/18 Chief Complaint: INTRACTABLE PAIN Subjective: No new changes SHE IS STILL IN SEVERE PAIN THAT SHE DOES NOT WANT TO MOVE. WHOLE CHEST CAGE AND PELVIC HURT FROM METS TO BONE. SHE ALSO HAS SEVERE GERD. Review of Systems 10-point ROS is otherwise unremarkable General: Weakness, Malaise Cardiovascular: As per HPI Gastrointestinal: As per HPI Physical Examination - Vital Signs Temperature: 97.5 F Blood Pressure: 152/68 Pulse: 64 Respirations: 16 Pulse Ox (%): 99 - Physical Exam General: Alert, Severe distress, Other (SITTING , BENT OVER, HOLDING HER CHEST IN FRONT. CONSTANT PAIN FOR DAYS.) HEENT: Atraumatic, PERRLA, EOMI Neck: Supple, JVD not distended Respiratory: Clear to auscultation bilaterally, Normal air movement Cardiovascular: Regular rate/rhythm, Normal S1 S2 Gastrointestinal: Normal bowel sounds, No tenderness Musculoskeletal: No tenderness Integumentary: No rashes Neurological: Normal speech, Normal tone, Normal affect Lymphatics: No axilla or inguinal lymphadenopathy - Studies Medications List Reviewed: Yes Assessment And Plan - Current Problems (Diagnosis) (1) Widespread metastatic malignant neoplastic disease Onset Date: 08/15/15 Current Visit: No Status: Acute Plan: END STAGE CANCER INTRACTABLE PAIN. IV PAIN MEDS TO CONTROL AND TAPER OFF WHEN ORAL MEDS TAKE EFFECT. SHE IS ON HOSPICE AND DNR PATIENT AND FAMILY AGREE. RAISE PATCH DOSE. RAISE DILAUDID- CONSTANT NOW. TALKED TO [facility]. PATIENT HAS SEVERE PAIN FROM END STAGE CANCER.
[2018-10-29] MEDS: PANTOPRAZOLE 40 MG INJ IVP SCH ×2 (10:04→21:20)
[2018-10-29] MEDS: FENTANYL 75 MCG/PATCH TD SCH (11:16)
[2018-10-29] MEDS: HYDROMORPHONE/PCA 10 MG/50 ML SYR IV PRN (18:16)
[2018-10-29] MEDS: NA CHLORIDE 0.9% 500 ML ONE (21:26)
[2018-10-30] MEDS: HYDROMORPHONE/PCA 10 MG/50 ML SYR IV PRN (03:39)
[2018-10-30] MEDS: METHADONE HCL 10 MG TAB PO SCH ×3 (05:18→17:12)
[2018-10-30] MEDS: PANTOPRAZOLE 40 MG INJ IVP SCH ×2 (08:39→20:49)
[2018-10-30] MEDS ORDERED: HYDROMORPHONE/PCA 10 MG/50 ML SYR IV PRN (11:49)
--- NOTE | 2018-10-30 11:52 | P.PN ---
Subjective Date of Service: 10/30/18 Chief Complaint: INTRACTABLE PAIN Subjective: No new changes SHE IS STILL IN SEVERE PAIN THAT SHE DOES NOT WANT TO MOVE. WHOLE CHEST CAGE AND PELVIC HURT FROM METS TO BONE. SHE ALSO HAS SEVERE GERD. SHE SAYS HER PAIN IS SLIGHTLY BETTER BUT SHE STILL HAS SEVERE PAIN, NOW NAUSEA ALSO WITH IT. HER ORAL MEDS AND PATCH ARE NOT WORKING YET. Review of Systems 10-point ROS is otherwise unremarkable General: Weakness, Malaise, As per HPI Gastrointestinal: Nausea, Other Physical Examination - Vital Signs Temperature: 96.8 F Blood Pressure: 181/79 Pulse: 57 Respirations: 16 Pulse Ox (%): 97 - Physical Exam General: Alert, Severe distress HEENT: Atraumatic, PERRLA, EOMI Neck: Supple, JVD not distended Respiratory: Clear to auscultation bilaterally, Normal air movement Cardiovascular: Regular rate/rhythm, Normal S1 S2 Gastrointestinal: Normal bowel sounds, No tenderness Musculoskeletal: No tenderness Integumentary: No rashes Neurological: Normal speech, Normal tone, Normal affect Lymphatics: No axilla or inguinal lymphadenopathy - Studies Medications List Reviewed: Yes Assessment And Plan - Current Problems (Diagnosis) (1) Widespread metastatic malignant neoplastic disease Onset Date: 08/15/15 Current Visit: No Status: Acute Plan: END STAGE CANCER INTRACTABLE PAIN. IV PAIN MEDS TO CONTROL AND TAPER OFF WHEN ORAL MEDS TAKE EFFECT. SHE IS ON HOSPICE AND DNR PATIENT AND FAMILY AGREE. RAISE PATCH DOSE. RAISE DILAUDID- CONSTANT NOW. TALKED TO SHU FLOOD. PATIENT HAS SEVERE PAIN FROM END STAGE CANCER. I AM STILL NOT ABLE TO TAPER OFF DILAUDID. SHE STILL HAS SEVERE PAIN. HIGH DOSE OF METHADONE AND PATCH ARE NOT ENOUGH. SHE DID NOT DO WELL ON ORAL MORPHINE OUTPATIENT.
[2018-10-30] MEDS ORDERED: HOME MED 1 EA UNK (Ondansetron Hcl [Zofran] 4 MG) PO PRN (12:10)
[2018-10-30] MEDS ORDERED: HOME MED 1 EA UNK (Lactulose [Lactulose] 30 ML) PO PRN (12:10)
[2018-10-30] MEDS ORDERED: LACTULOSE 20 GM/30 ML UCUP PO PRN (12:24)
[2018-10-30] MEDS ORDERED: ONDANSETRON 4 MG (ODT) TAB PO PRN (12:25)
[2018-10-30] MEDS: SCOPOLAMINE HYDROBROMIDE PATCH TD PRN (13:27)
[2018-10-30] MEDS ORDERED: NA CHLORIDE 0.9% 500 ML ONE (13:34)
[2018-10-30] MEDS: PROMETHAZINE 25 MG/ML VIAL IV PRN (15:35)
[2018-10-30] MEDS: LORAZEPAM 0.5 MG TABLET SL PRN (17:19)
[2018-10-31] MEDS: METHADONE HCL 10 MG TAB PO SCH ×4 (00:32→17:22)
[2018-10-31] MEDS: LORAZEPAM 0.5 MG TABLET SL PRN ×3 (00:36→05:41)
[2018-10-31] MEDS ORDERED: NA CHLORIDE 0.9% 500 ML ONE ×2 (00:45→22:44)
[2018-10-31] MEDS: PANTOPRAZOLE 40 MG INJ IVP SCH ×2 (08:20→21:22)
[2018-10-31] MEDS: PROMETHAZINE 25 MG/ML VIAL IV PRN (13:50)
[2018-10-31] MEDS ORDERED: POLYETHYL GLY 3350 17 GM/DOSE PO PRN (16:02)
[2018-10-31] MEDS ORDERED: HYDROMORPHONE/PCA 10 MG/50 ML SYR IV PRN (19:58)
--- NOTE | 2018-10-31 21:13 | P.PN ---
Subjective Date of Service: 10/31/18 Chief Complaint: INTRACTABLE PAIN SHE IS STILL IN SEVERE PAIN THAT SHE DOES NOT WANT TO MOVE. WHOLE CHEST CAGE AND PELVIC HURT FROM METS TO BONE. SHE ALSO HAS SEVERE GERD. SHE SAYS HER PAIN IS SLIGHTLY BETTER BUT SHE STILL HAS SEVERE PAIN, NOW NAUSEA ALSO WITH IT. HER ORAL MEDS AND PATCH ARE NOT WORKING YET. THIS AM WHEN I ASKED HER TO COUGH AND BREATH AND SHE DID NOT HAVE MUCH PAIN. LATER IN PM SHE BECAME VERY SEDATED TO WE REDUCED THE DOSE OF CONTINUOUS DILAUDID SHE HAD SO SHE CAN WAKE UP. I JUST CALLED ANDRÉS AND SHE TOLD ME THAT SHE IS MUCH MORE AWAKE AND PAIN CONTROL IS A LOT BETTER COMPARED TO 3 DAYS AGO. I ASKED ANDRÉS TO REDUCE DILAUDID AGAIN BY 0.2 MG AND IF IT STILL OKAY IN AM REDUCE FURTHER TO 0.8 MG PER HOUR THAT IS LOWER AGAIN. Review of Systems General: Weakness, Malaise, As per HPI Physical Examination - Vital Signs Temperature: 98.4 F Blood Pressure: 134/82 Pulse: 103 Respirations: 18 Pulse Ox (%): 97 - Physical Exam General: Alert, Moderate distress HEENT: Atraumatic, PERRLA, EOMI Neck: Supple, JVD not distended Respiratory: Other (TENDER RIB CAGE.) Cardiovascular: Regular rate/rhythm, Normal S1 S2 Gastrointestinal: Normal bowel sounds, No tenderness Musculoskeletal: No tenderness Integumentary: No rashes Neurological: Normal speech, Normal tone, Normal affect Lymphatics: No axilla or inguinal lymphadenopathy - Studies Medications List Reviewed: Yes Assessment And Plan - Current Problems (Diagnosis) (1) Widespread metastatic malignant neoplastic disease Onset Date: 08/15/15 Current Visit: No Status: Acute Plan: END STAGE CANCER INTRACTABLE PAIN. IV PAIN MEDS TO CONTROL AND TAPER OFF WHEN ORAL MEDS TAKE EFFECT. SHE IS ON HOSPICE AND DNR PATIENT AND FAMILY AGREE. RAISE PATCH DOSE. RAISE DILAUDID- CONSTANT NOW. TALKED TO SHU FLOOD. PATIENT HAS SEVERE PAIN FROM END STAGE CANCER. I AM STILL NOT ABLE TO TAPER OFF DILAUDID. SHE STILL HAS SEVERE PAIN. HIGH DOSE OF METHADONE AND PATCH ARE NOT ENOUGH. SHE DID NOT DO WELL ON ORAL MORPHINE OUTPATIENT. PLAN IN HPI.
[2018-11-01] MEDS: METHADONE HCL 10 MG TAB PO SCH ×4 (00:16→17:24)
[2018-11-01] MEDS ORDERED: NALOXONE 0.4 MG/ML VIAL IV PRN (01:21)
[2018-11-01] MEDS: HYDROMORPHONE/PCA 10 MG/50 ML SYR IV PRN (03:45)
[2018-11-01] MEDS: LORAZEPAM 0.5 MG TABLET SL PRN ×4 (04:54→22:30)
[2018-11-01] MEDS: PANTOPRAZOLE 40 MG INJ IVP SCH ×2 (09:05→21:37)
[2018-11-01] MEDS: FENTANYL 75 MCG/PATCH TD SCH (09:07)
[2018-11-01] MEDS: FENTANYL 100 MCG/PATCH TD SCH (12:57)
--- NOTE | 2018-11-01 13:13 | P.PN ---
Subjective Date of Service: 11/01/18 Chief Complaint: INTRACTABLE PAIN SHE IS STILL IN SEVERE PAIN THAT SHE DOES NOT WANT TO MOVE. WHOLE CHEST CAGE AND PELVIC HURT FROM METS TO BONE. SHE ALSO HAS SEVERE GERD. SHE SAYS HER PAIN IS SLIGHTLY BETTER BUT SHE STILL HAS SEVERE PAIN, NOW NAUSEA ALSO WITH IT. HER ORAL MEDS AND PATCH ARE NOT WORKING YET. THIS AM WHEN I ASKED HER TO COUGH AND BREATH AND SHE DID NOT HAVE MUCH PAIN. LATER IN PM SHE BECAME VERY SEDATED TO WE REDUCED THE DOSE OF CONTINUOUS DILAUDID SHE HAD SO SHE CAN WAKE UP. I JUST CALLED ANDRÉS AND SHE TOLD ME THAT SHE IS MUCH MORE AWAKE AND PAIN CONTROL IS A LOT BETTER COMPARED TO 3 DAYS AGO. I ASKED ANDRÉS TO REDUCE DILAUDID AGAIN BY 0.2 MG AND IF IT STILL OKAY IN AM REDUCE FURTHER TO 0.8 MG PER HOUR THAT IS LOWER AGAIN. SHE IS MORE AWAKE BUT ALSO IN MORE PAIN NOW. NOT MOVING MUCH IN BED ALSO. Review of Systems General: Weakness, Malaise Physical Examination - Vital Signs Temperature: 98.5 F Blood Pressure: 155/71 Pulse: 62 Respirations: 16 Pulse Ox (%): 99 - Physical Exam General: Alert, Cachectic, Severe distress HEENT: Atraumatic, PERRLA, EOMI Neck: Supple, JVD not distended Respiratory: Clear to auscultation bilaterally, Normal air movement Cardiovascular: Regular rate/rhythm, Normal S1 S2 Gastrointestinal: Normal bowel sounds, No tenderness Musculoskeletal: No tenderness Integumentary: No rashes Neurological: Normal speech, Normal tone, Normal affect Lymphatics: No axilla or inguinal lymphadenopathy - Studies Medications List Reviewed: Yes Assessment And Plan - Current Problems (Diagnosis) (1) Widespread metastatic malignant neoplastic disease Onset Date: 08/15/15 Current Visit: No Status: Acute Plan: END STAGE CANCER INTRACTABLE PAIN. IV PAIN MEDS TO CONTROL AND TAPER OFF WHEN ORAL MEDS TAKE EFFECT. SHE IS ON HOSPICE AND DNR PATIENT AND FAMILY AGREE. RAISE PATCH DOSE. RAISE DILAUDID- CONSTANT NOW. TALKED TO [facility] FLOOD. PATIENT HAS SEVERE PAIN FROM END STAGE CANCER. I AM STILL NOT ABLE TO TAPER OFF DILAUDID. SHE STILL HAS SEVERE PAIN. HIGH DOSE OF METHADONE AND PATCH ARE NOT ENOUGH. SHE DID NOT DO WELL ON ORAL MORPHINE OUTPATIENT. PLAN IN HPI. RAISE DURAGESIC AND TAPER DILAUDID, STARTED TO DO YEST.
[2018-11-01] MEDS ORDERED: NA CHLORIDE 0.9% 500 ML ONE (13:16)
[2018-11-02] MEDS: METHADONE HCL 10 MG TAB PO SCH ×6 (00:21→23:43)
[2018-11-02] MEDS: HYDROMORPHONE/PCA 10 MG/50 ML SYR IV PRN (00:55)
[2018-11-02] MEDS ORDERED: HYDROMORPHONE/PCA 10 MG/50 ML SYR IV PRN (06:48)
[2018-11-02] MEDS ORDERED: NA CHLORIDE 0.9% 500 ML ONE (07:58)
[2018-11-02] MEDS: PANTOPRAZOLE 40 MG INJ IVP SCH ×2 (10:08→20:57)
[2018-11-02] MEDS: LORazepam 2 MG/ML VIAL IV PRN ×2 (10:08→20:58)
--- NOTE | 2018-11-02 16:59 | P.PN ---
Subjective Date of Service: 11/02/18 Chief Complaint: HAD VERY RESTLESS NIGHT. THRASHING. Subjective: Worsening SHE IS STILL IN SEVERE PAIN THAT SHE DOES NOT WANT TO MOVE. WHOLE CHEST CAGE AND PELVIC HURT FROM METS TO BONE. SHE ALSO HAS SEVERE GERD. SHE SAYS HER PAIN IS SLIGHTLY BETTER BUT SHE STILL HAS SEVERE PAIN, NOW NAUSEA ALSO WITH IT. HER ORAL MEDS AND PATCH ARE NOT WORKING YET. THIS AM WHEN I ASKED HER TO COUGH AND BREATH AND SHE DID NOT HAVE MUCH PAIN. LATER IN PM SHE BECAME VERY SEDATED TO WE REDUCED THE DOSE OF CONTINUOUS DILAUDID SHE HAD SO SHE CAN WAKE UP. I JUST CALLED ANDRÉS AND SHE TOLD ME THAT SHE IS MUCH MORE AWAKE AND PAIN CONTROL IS A LOT BETTER COMPARED TO 3 DAYS AGO. I ASKED ANDRÉS TO REDUCE DILAUDID AGAIN BY 0.2 MG AND IF IT STILL OKAY IN AM REDUCE FURTHER TO 0.8 MG PER HOUR THAT IS LOWER AGAIN. SHE IS MORE AWAKE BUT ALSO IN MORE PAIN NOW. NOT MOVING MUCH IN BED ALSO. 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 SHE WAS THRASHING ALL OVER PER FAMILY IN PAIN. HER ANXIETY IS ALSO SEVERE. Review of Systems General: Weakness, Malaise, As per HPI Physical Examination - Vital Signs Temperature: 98.4 F Blood Pressure: 135/62 Pulse: 71 Respirations: 16 Pulse Ox (%): 95 - Physical Exam General: Alert, Severe distress HEENT: Atraumatic, PERRLA, EOMI Neck: Supple, JVD not distended Respiratory: Clear to auscultation bilaterally, Normal air movement, Other ( TENDER THORACIC REGION AND PELVIS NOW.) Cardiovascular: Regular rate/rhythm, Normal S1 S2 Gastrointestinal: Normal bowel sounds, No tenderness Musculoskeletal: No tenderness Integumentary: No rashes Neurological: Normal speech, Other (SEDATED FROM MEDS TRYING TO CONTROL PAIN. ) Lymphatics: No axilla or inguinal lymphadenopathy - Studies Medications List Reviewed: Yes Assessment And Plan - Current Problems (Diagnosis) (1) Widespread metastatic malignant neoplastic disease Onset Date: 08/15/15 Current Visit: No Status: Acute Plan: END STAGE CANCER INTRACTABLE PAIN. IV PAIN MEDS TO CONTROL AND TAPER OFF WHEN ORAL MEDS TAKE EFFECT. SHE IS ON HOSPICE AND DNR PATIENT AND FAMILY AGREE. RAISE PATCH DOSE. RAISE DILAUDID- CONSTANT NOW. TALKED TO [facility]. PATIENT HAS SEVERE PAIN FROM END STAGE CANCER. I AM STILL NOT ABLE TO TAPER OFF DILAUDID. SHE STILL HAS SEVERE PAIN. HIGH DOSE OF METHADONE AND PATCH ARE NOT ENOUGH. SHE DID NOT DO WELL ON ORAL MORPHINE OUTPATIENT. PLAN IN HPI. RAISE DURAGESIC AND TAPER DILAUDID, STARTED TO DO YEST. SHAVON IS STILL IN SEVERE PAIN FROM END STAGE BREAST CANCER WITH METS TO BONES. I AM REDUCING DILAUDID AND RAISING DURAGESIC. SHE IS ALSO ON METHADONE. I AM RAISING ATIVANTO CONTROL ANXIETY. SHE IS NOT AWAKE ENOUGH TO SWALLOW PILLS.
[2018-11-02] MEDS: SCOPOLAMINE HYDROBROMIDE PATCH TD PRN (17:31)
[2018-11-03] MEDS ORDERED: NA CHLORIDE 0.9% 500 ML ONE (00:29)
[2018-11-03] MEDS: LORazepam 2 MG/ML VIAL IV PRN (03:03)
[2018-11-03] MEDS: METHADONE HCL 10 MG TAB PO SCH ×4 (06:00→23:29)
[2018-11-03] MEDS: PANTOPRAZOLE 40 MG INJ IVP SCH ×2 (10:15→20:19)
--- NOTE | 2018-11-03 17:20 | P.PN ---
Subjective Date of Service: 11/03/18 Chief Complaint: SEDATED WITH PAIN MEDS. IN SEVERE PAIN. Subjective: Worsening SHE IS STILL IN SEVERE PAIN THAT SHE DOES NOT WANT TO MOVE. WHOLE CHEST CAGE AND PELVIC HURT FROM METS TO BONE. SHE ALSO HAS SEVERE GERD. SHE SAYS HER PAIN IS SLIGHTLY BETTER BUT SHE STILL HAS SEVERE PAIN, NOW NAUSEA ALSO WITH IT. HER ORAL MEDS AND PATCH ARE NOT WORKING YET. THIS AM WHEN I ASKED HER TO COUGH AND BREATH AND SHE DID NOT HAVE MUCH PAIN. LATER IN PM SHE BECAME VERY SEDATED TO WE REDUCED THE DOSE OF CONTINUOUS DILAUDID SHE HAD SO SHE CAN WAKE UP. I JUST CALLED ANDRÉS AND SHE TOLD ME THAT SHE IS MUCH MORE AWAKE AND PAIN CONTROL IS A LOT BETTER COMPARED TO 3 DAYS AGO. I ASKED ANDRÉS TO REDUCE DILAUDID AGAIN BY 0.2 MG AND IF IT STILL OKAY IN AM REDUCE FURTHER TO 0.8 MG PER HOUR THAT IS LOWER AGAIN. SHE IS MORE AWAKE BUT ALSO IN MORE PAIN NOW. NOT MOVING MUCH IN BED ALSO. 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 SHE WAS THRASHING ALL OVER PER FAMILY IN PAIN. HER ANXIETY IS ALSO SEVERE. SHE IS IN TOO MUCH PAIN EVEN WITH MULTIPLE MEDS AND NOT ABLE TO MOVE WITHOUT PAIN. SEDATED NOW WITH COMFORT CARE RELATED PAIN MEDS AND ANXIETY RELATED ATIVAN. Review of Systems 10-point ROS is otherwise unremarkable General: Weakness, Malaise, As per HPI Physical Examination - Vital Signs Temperature: 98 F Blood Pressure: 144/65 Pulse: 80 Respirations: 16 Pulse Ox (%): 99 - Physical Exam General: Cachectic, Severe distress Respiratory: Diminished - Studies Medications List Reviewed: Yes Assessment And Plan - Current Problems (Diagnosis) (1) Widespread metastatic malignant neoplastic disease Onset Date: 08/15/15 Current Visit: No Status: Acute Plan: END STAGE CANCER INTRACTABLE PAIN. IV PAIN MEDS TO CONTROL AND TAPER OFF WHEN ORAL MEDS TAKE EFFECT. SHE IS ON HOSPICE AND DNR PATIENT AND FAMILY AGREE. RAISE PATCH DOSE. RAISE DILAUDID- CONSTANT NOW. TALKED TO [facility] FLOOD. PATIENT HAS SEVERE PAIN FROM END STAGE CANCER. I AM STILL NOT ABLE TO TAPER OFF DILAUDID. SHE STILL HAS SEVERE PAIN. HIGH DOSE OF METHADONE AND PATCH ARE NOT ENOUGH. SHE DID NOT DO WELL ON ORAL MORPHINE OUTPATIENT. PLAN IN HPI. RAISE DURAGESIC AND TAPER DILAUDID, STARTED TO DO YEST. SHAVON IS STILL IN SEVERE PAIN FROM END STAGE BREAST CANCER WITH METS TO BONES. I AM REDUCING DILAUDID AND RAISING DURAGESIC. SHE IS ALSO ON METHADONE. I AM RAISING ATIVANTO CONTROL ANXIETY. SHE IS NOT AWAKE ENOUGH TO SWALLOW PILLS. I AM TRYING TO REDUCE PAIN PUMP AND GO UP ON PATCH. HOPEFULLY SHE WILL BE ABLE TO GET OFF PUMP AND BE SOMEWHAT COMFORTABLE WITH PATCH.
[2018-11-03] MEDS: HYDROMORPHONE/PCA 10 MG/50 ML SYR IV PRN (18:07)
[2018-11-04] MEDS: METHADONE HCL 10 MG TAB PO SCH ×3 (06:11→18:19)
[2018-11-04] MEDS: LORazepam 2 MG/ML VIAL IV PRN ×7 (06:11→22:38)
[2018-11-04] MEDS ORDERED: NA CHLORIDE 0.9% 500 ML ONE (09:20)
[2018-11-04] MEDS: FENTANYL 100 MCG/PATCH TD SCH (09:27)
[2018-11-04] MEDS: PANTOPRAZOLE 40 MG INJ IVP SCH ×2 (09:28→20:28)
[2018-11-04] MEDS: HYDROMORPHONE/PCA 10 MG/50 ML SYR IV PRN (10:24)
[2018-11-04] MEDS ORDERED: HYDROMORPHONE/PCA 10 MG/50 ML SYR IV PRN (13:57)
--- NOTE | 2018-11-04 14:02 | P.PN ---
Subjective Date of Service: 11/04/18 Chief Complaint: SEDATED WITH PAIN MEDS. IN SEVERE PAIN. Subjective: Worsening SHE IS STILL IN SEVERE PAIN THAT SHE DOES NOT WANT TO MOVE. WHOLE CHEST CAGE AND PELVIC HURT FROM METS TO BONE. SHE ALSO HAS SEVERE GERD. SHE SAYS HER PAIN IS SLIGHTLY BETTER BUT SHE STILL HAS SEVERE PAIN, NOW NAUSEA ALSO WITH IT. HER ORAL MEDS AND PATCH ARE NOT WORKING YET. THIS AM WHEN I ASKED HER TO COUGH AND BREATH AND SHE DID NOT HAVE MUCH PAIN. LATER IN PM SHE BECAME VERY SEDATED TO WE REDUCED THE DOSE OF CONTINUOUS DILAUDID SHE HAD SO SHE CAN WAKE UP. I JUST CALLED ANDRÉS AND SHE TOLD ME THAT SHE IS MUCH MORE AWAKE AND PAIN CONTROL IS A LOT BETTER COMPARED TO 3 DAYS AGO. I ASKED ANDRÉS TO REDUCE DILAUDID AGAIN BY 0.2 MG AND IF IT STILL OKAY IN AM REDUCE FURTHER TO 0.8 MG PER HOUR THAT IS LOWER AGAIN. SHE IS MORE AWAKE BUT ALSO IN MORE PAIN NOW. NOT MOVING MUCH IN BED ALSO. 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 SHE WAS THRASHING ALL OVER PER FAMILY IN PAIN. HER ANXIETY IS ALSO SEVERE. SHE IS IN TOO MUCH PAIN EVEN WITH MULTIPLE MEDS AND NOT ABLE TO MOVE WITHOUT PAIN. SEDATED NOW WITH COMFORT CARE RELATED PAIN MEDS AND ANXIETY RELATED ATIVAN. SHE HAD VERY PAINFUL NIGHT. FAMILY GAVE 7 BOLUSES FOR PAIN CONTROL WHENEVER SHE WOKE UP SHE WAS IN SEVERE PAIN. WE WILL CONTINUE TAPER OF THE DILAUDID AND RAISING PATCH. Review of Systems is unable to be obtained Physical Examination - Vital Signs Temperature: 97.9 F Blood Pressure: 156/68 Pulse: 67 Respirations: 18 Pulse Ox (%): 96 - Physical Exam General: Cachectic (SEMICOMATOSE NOW WITH MEDICATIONS TO KEEP HER PAIN CONTROLLED.) Respiratory: Other (SEVERE THORACIC AND PELVIC PAIN.) - Studies Medications List Reviewed: Yes Assessment And Plan - Current Problems (Diagnosis) (1) Widespread metastatic malignant neoplastic disease Onset Date: 08/15/15 Current Visit: No Status: Acute Plan: END STAGE CANCER INTRACTABLE PAIN. IV PAIN MEDS TO CONTROL AND TAPER OFF WHEN ORAL MEDS TAKE EFFECT. SHE IS ON HOSPICE AND DNR PATIENT AND FAMILY AGREE. RAISE PATCH DOSE. RAISE DILAUDID- CONSTANT NOW. TALKED TO [facility]. PATIENT HAS SEVERE PAIN FROM END STAGE CANCER. I AM STILL NOT ABLE TO TAPER OFF DILAUDID. SHE STILL HAS SEVERE PAIN. HIGH DOSE OF METHADONE AND PATCH ARE NOT ENOUGH. SHE DID NOT DO WELL ON ORAL MORPHINE OUTPATIENT. PLAN IN HPI. RAISE DURAGESIC AND TAPER DILAUDID, STARTED TO DO YEST. SHAVON IS STILL IN SEVERE PAIN FROM END STAGE BREAST CANCER WITH METS TO BONES. I AM REDUCING DILAUDID AND RAISING DURAGESIC. SHE IS ALSO ON METHADONE. I AM RAISING ATIVANTO CONTROL ANXIETY. SHE IS NOT AWAKE ENOUGH TO SWALLOW PILLS. I AM TRYING TO REDUCE PAIN PUMP AND GO UP ON PATCH. HOPEFULLY SHE WILL BE ABLE TO GET OFF PUMP AND BE SOMEWHAT COMFORTABLE WITH PATCH.
[2018-11-05] MEDS: LORazepam 2 MG/ML VIAL IV PRN ×5 (00:23→17:09)
[2018-11-05] MEDS: METHADONE HCL 10 MG TAB PO SCH ×5 (00:23→23:56)
[2018-11-05] MEDS ORDERED: NA CHLORIDE 0.9% 500 ML ONE ×2 (00:29→20:50)
[2018-11-05] MEDS ORDERED: HYDROMORPHONE/PCA 10 MG/50 ML SYR IV PRN (07:42)
[2018-11-05] MEDS: PANTOPRAZOLE 40 MG INJ IVP SCH ×2 (08:56→20:48)
[2018-11-05] MEDS ORDERED: FENTANYL 75 MCG/PATCH TD SCH (09:00)
--- NOTE | 2018-11-05 15:21 | P.PN ---
Subjective Date of Service: 11/05/18 Chief Complaint: SEDATED WITH PAIN MEDS. IN SEVERE PAIN. SHE IS STILL IN SEVERE PAIN THAT SHE DOES NOT WANT TO MOVE. WHOLE CHEST CAGE AND PELVIC HURT FROM METS TO BONE. SHE ALSO HAS SEVERE GERD. SHE SAYS HER PAIN IS SLIGHTLY BETTER BUT SHE STILL HAS SEVERE PAIN, NOW NAUSEA ALSO WITH IT. HER ORAL MEDS AND PATCH ARE NOT WORKING YET. THIS AM WHEN I ASKED HER TO COUGH AND BREATH AND SHE DID NOT HAVE MUCH PAIN. LATER IN PM SHE BECAME VERY SEDATED TO WE REDUCED THE DOSE OF CONTINUOUS DILAUDID SHE HAD SO SHE CAN WAKE UP. I JUST CALLED ANDRÉS AND SHE TOLD ME THAT SHE IS MUCH MORE AWAKE AND PAIN CONTROL IS A LOT BETTER COMPARED TO 3 DAYS AGO. I ASKED ANDRÉS TO REDUCE DILAUDID AGAIN BY 0.2 MG AND IF IT STILL OKAY IN AM REDUCE FURTHER TO 0.8 MG PER HOUR THAT IS LOWER AGAIN. SHE IS MORE AWAKE BUT ALSO IN MORE PAIN NOW. NOT MOVING MUCH IN BED ALSO. 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 SHE WAS THRASHING ALL OVER PER FAMILY IN PAIN. HER ANXIETY IS ALSO SEVERE. SHE IS IN TOO MUCH PAIN EVEN WITH MULTIPLE MEDS AND NOT ABLE TO MOVE WITHOUT PAIN. SEDATED NOW WITH COMFORT CARE RELATED PAIN MEDS AND ANXIETY RELATED ATIVAN. SHE HAD VERY PAINFUL NIGHT. FAMILY GAVE 7 BOLUSES FOR PAIN CONTROL WHENEVER SHE WOKE UP SHE WAS IN SEVERE PAIN. WE WILL CONTINUE TAPER OF THE DILAUDID AND RAISING PATCH. PER FAMILY SHE IS STILL IN SEVERE PAIN BUT HAD BETTER LAST NIGHT SHE WAS HEAVILY SEDATED. Review of Systems is unable to be obtained Physical Examination - Vital Signs Temperature: 98.1 F Blood Pressure: 145/67 Pulse: 70 Respirations: 14 Pulse Ox (%): 94 - Physical Exam General: Cachectic, Severe distress, Unresponsive (WITH SEDATION) HEENT: Atraumatic, PERRLA, EOMI Neck: Supple, JVD not distended Respiratory: Diminished Cardiovascular: Regular rate/rhythm, Normal S1 S2 Gastrointestinal: Normal bowel sounds, No tenderness Musculoskeletal: No tenderness Integumentary: No rashes Lymphatics: No axilla or inguinal lymphadenopathy - Studies Medications List Reviewed: Yes Assessment And Plan - Current Problems (Diagnosis) (1) Widespread metastatic malignant neoplastic disease Onset Date: 08/15/15 Current Visit: No Status: Acute Plan: END STAGE CANCER INTRACTABLE PAIN. IV PAIN MEDS TO CONTROL AND TAPER OFF WHEN ORAL MEDS TAKE EFFECT. SHE IS ON HOSPICE AND DNR PATIENT AND FAMILY AGREE. RAISE PATCH DOSE. RAISE DILAUDID- CONSTANT NOW. TALKED TO SHU FLOOD. PATIENT HAS SEVERE PAIN FROM END STAGE CANCER. I AM STILL NOT ABLE TO TAPER OFF DILAUDID. SHE STILL HAS SEVERE PAIN. HIGH DOSE OF METHADONE AND PATCH ARE NOT ENOUGH. SHE DID NOT DO WELL ON ORAL MORPHINE OUTPATIENT. PLAN IN HPI. RAISE DURAGESIC AND TAPER DILAUDID, STARTED TO DO YEST. SHAVON IS STILL IN SEVERE PAIN FROM END STAGE BREAST CANCER WITH METS TO BONES. I AM REDUCING DILAUDID AND RAISING DURAGESIC. SHE IS ALSO ON METHADONE. I AM RAISING ATIVANTO CONTROL ANXIETY. SHE IS NOT AWAKE ENOUGH TO SWALLOW PILLS. I AM TRYING TO REDUCE PAIN PUMP AND GO UP ON PATCH. HOPEFULLY SHE WILL BE ABLE TO GET OFF PUMP AND BE SOMEWHAT COMFORTABLE WITH PATCH. WE WILL RAISE PATCH AND REDUCE IV DILAUDID FURTHER TODAY. I ASKED NURSE TO REDUCE ATIVAN IV FREQUENCY I WANT HER AWAKE IF SHE CAN TO ASSESS PAIN.
[2018-11-06] MEDS: METHADONE HCL 10 MG TAB PO SCH (06:11)
[2018-11-06] MEDS: PANTOPRAZOLE 40 MG INJ IVP SCH ×2 (08:00→21:10)
[2018-11-06] MEDS: FENTANYL 100 MCG/PATCH TD SCH ×2 (09:00→14:44)
[2018-11-06] MEDS ORDERED: HYDROMORPHONE/PCA 10 MG/50 ML SYR IV PRN (10:48)
--- NOTE | 2018-11-06 12:26 | P.PN ---
Subjective Date of Service: 11/06/18 Chief Complaint: SEDATED WITH PAIN MEDS. IN SEVERE PAIN. Subjective: Worsening SHE IS STILL IN SEVERE PAIN THAT SHE DOES NOT WANT TO MOVE. WHOLE CHEST CAGE AND PELVIC HURT FROM METS TO BONE. SHE ALSO HAS SEVERE GERD. SHE SAYS HER PAIN IS SLIGHTLY BETTER BUT SHE STILL HAS SEVERE PAIN, NOW NAUSEA ALSO WITH IT. HER ORAL MEDS AND PATCH ARE NOT WORKING YET. THIS AM WHEN I ASKED HER TO COUGH AND BREATH AND SHE DID NOT HAVE MUCH PAIN. LATER IN PM SHE BECAME VERY SEDATED TO WE REDUCED THE DOSE OF CONTINUOUS DILAUDID SHE HAD SO SHE CAN WAKE UP. I JUST CALLED ANDRÉS AND SHE TOLD ME THAT SHE IS MUCH MORE AWAKE AND PAIN CONTROL IS A LOT BETTER COMPARED TO 3 DAYS AGO. I ASKED ANDRÉS TO REDUCE DILAUDID AGAIN BY 0.2 MG AND IF IT STILL OKAY IN AM REDUCE FURTHER TO 0.8 MG PER HOUR THAT IS LOWER AGAIN. SHE IS MORE AWAKE BUT ALSO IN MORE PAIN NOW. NOT MOVING MUCH IN BED ALSO. 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 SHE WAS THRASHING ALL OVER PER FAMILY IN PAIN. HER ANXIETY IS ALSO SEVERE. SHE IS IN TOO MUCH PAIN EVEN WITH MULTIPLE MEDS AND NOT ABLE TO MOVE WITHOUT PAIN. SEDATED NOW WITH COMFORT CARE RELATED PAIN MEDS AND ANXIETY RELATED ATIVAN. SHE HAD VERY PAINFUL NIGHT. FAMILY GAVE 7 BOLUSES FOR PAIN CONTROL WHENEVER SHE WOKE UP SHE WAS IN SEVERE PAIN. WE WILL CONTINUE TAPER OF THE DILAUDID AND RAISING PATCH. PER FAMILY SHE IS STILL IN SEVERE PAIN BUT HAD BETTER LAST NIGHT SHE WAS HEAVILY SEDATED. SHE NOW IS ALMOST COMATOSE BUT STILL IN SEVERE PAIN WHEN TRIED TO BE AWAKENED OR MOVED. Review of Systems is unable to be obtained Physical Examination - Vital Signs Temperature: 97.9 F Blood Pressure: 183/80 Pulse: 74 Respirations: 22 Pulse Ox (%): 98 - Physical Exam General: Cachectic, Severe distress Neck: Supple, Without JVD or thyroid abnormality Respiratory: Diminished Cardiovascular: No edema Neurological: Other (SEDATED, COMATOSE WITH MEDS TO CONTROL PAIN.) - Studies Medications List Reviewed: Yes Assessment And Plan - Current Problems (Diagnosis) (1) Widespread metastatic malignant neoplastic disease Onset Date: 08/15/15 Current Visit: No Status: Acute Plan: END STAGE CANCER INTRACTABLE PAIN. IV PAIN MEDS TO CONTROL AND TAPER OFF WHEN ORAL MEDS TAKE EFFECT. SHE IS ON HOSPICE AND DNR PATIENT AND FAMILY AGREE. RAISE PATCH DOSE. RAISE DILAUDID- CONSTANT NOW. TALKED TO SHU FLOOD. PATIENT HAS SEVERE PAIN FROM END STAGE CANCER. I AM STILL NOT ABLE TO TAPER OFF DILAUDID. SHE STILL HAS SEVERE PAIN. HIGH DOSE OF METHADONE AND PATCH ARE NOT ENOUGH. SHE DID NOT DO WELL ON ORAL MORPHINE OUTPATIENT. PLAN IN HPI. RAISE DURAGESIC AND TAPER DILAUDID, STARTED TO DO YEST. SHAVON IS STILL IN SEVERE PAIN FROM END STAGE BREAST CANCER WITH METS TO BONES. I AM REDUCING DILAUDID AND RAISING DURAGESIC. SHE IS ALSO ON METHADONE. I AM RAISING ATIVANTO CONTROL ANXIETY. SHE IS NOT AWAKE ENOUGH TO SWALLOW PILLS. I AM TRYING TO REDUCE PAIN PUMP AND GO UP ON PATCH. HOPEFULLY SHE WILL BE ABLE TO GET OFF PUMP AND BE SOMEWHAT COMFORTABLE WITH PATCH. WE WILL RAISE PATCH AND REDUCE IV DILAUDID FURTHER TODAY. I ASKED NURSE TO REDUCE ATIVAN IV FREQUENCY I WANT HER AWAKE IF SHE CAN TO ASSESS PAIN. I WILL STOP METHADONE NOW. SHE IS NOT ABLE TO SWALLOW ANY LONGER. SHE IS STILL IN SEVERE PAIN. I AM RAISING THE PATCH AND TAPERING DILAUDID TO SEE IF SHE CAN BE SENT HOME ON THE PATCH. SHE WILL BE UNCONSCIOUS AND SO WE EXPECT THAT. 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 FAMILY UNDERSTANDS THAT AND WANT HE PAIN CONTROLLED.
[2018-11-06] MEDS: LORazepam 2 MG/ML VIAL IV PRN ×3 (12:57→23:19)
[2018-11-06] MEDS: NA CHLORIDE 0.9% 500 ML ONE (13:04)
[2018-11-06] MEDS ORDERED: NA CHLORIDE 0.9% 500 ML ONE (13:13)
[2018-11-07] MEDS ORDERED: NA CHLORIDE 0.9% 500 ML ONE ×2 (07:44→23:27)
[2018-11-07] MEDS: PANTOPRAZOLE 40 MG INJ IVP SCH ×2 (09:10→20:24)
[2018-11-07] MEDS: LORazepam 2 MG/ML VIAL IV PRN ×3 (09:17→18:37)
--- NOTE | 2018-11-07 21:46 | P.PN ---
Subjective Date of Service: 11/07/18 Chief Complaint: SEDATED WITH PAIN MEDS. IN SEVERE PAIN. SHE IS STILL IN SEVERE PAIN THAT SHE DOES NOT WANT TO MOVE. WHOLE CHEST CAGE AND PELVIC HURT FROM METS TO BONE. SHE ALSO HAS SEVERE GERD. SHE SAYS HER PAIN IS SLIGHTLY BETTER BUT SHE STILL HAS SEVERE PAIN, NOW NAUSEA ALSO WITH IT. HER ORAL MEDS AND PATCH ARE NOT WORKING YET. THIS AM WHEN I ASKED HER TO COUGH AND BREATH AND SHE DID NOT HAVE MUCH PAIN. LATER IN PM SHE BECAME VERY SEDATED TO WE REDUCED THE DOSE OF CONTINUOUS DILAUDID SHE HAD SO SHE CAN WAKE UP. I JUST CALLED ANDRÉS AND SHE TOLD ME THAT SHE IS MUCH MORE AWAKE AND PAIN CONTROL IS A LOT BETTER COMPARED TO 3 DAYS AGO. I ASKED ANDRÉS TO REDUCE DILAUDID AGAIN BY 0.2 MG AND IF IT STILL OKAY IN AM REDUCE FURTHER TO 0.8 MG PER HOUR THAT IS LOWER AGAIN. SHE IS MORE AWAKE BUT ALSO IN MORE PAIN NOW. NOT MOVING MUCH IN BED ALSO. 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 SHE WAS THRASHING ALL OVER PER FAMILY IN PAIN. HER ANXIETY IS ALSO SEVERE. SHE IS IN TOO MUCH PAIN EVEN WITH MULTIPLE MEDS AND NOT ABLE TO MOVE WITHOUT PAIN. SEDATED NOW WITH COMFORT CARE RELATED PAIN MEDS AND ANXIETY RELATED ATIVAN. SHE HAD VERY PAINFUL NIGHT. FAMILY GAVE 7 BOLUSES FOR PAIN CONTROL WHENEVER SHE WOKE UP SHE WAS IN SEVERE PAIN. WE WILL CONTINUE TAPER OF THE DILAUDID AND RAISING PATCH. PER FAMILY SHE IS STILL IN SEVERE PAIN BUT HAD BETTER LAST NIGHT SHE WAS HEAVILY SEDATED. SHE NOW IS ALMOST COMATOSE BUT STILL IN SEVERE PAIN WHEN TRIED TO BE AWAKENED OR MOVED. I AM TRYING TO REDUCE DILAUDID AND GIVE HER HIGH DOSE OF DURAGESIC PATCH FOR PAIN CONTROL BUT FAMILY I..E THE DAUGHTER STILL SAYS THAT SHE IS MOANING EVERY 3 -4 HOURS IN PAIN AND SO NEEDS IV DILAUDID PUSH FOR PAIN CONTROL. Review of Systems is unable to be obtained Physical Examination - Vital Signs Temperature: 99.1 F Blood Pressure: 186/81 Pulse: 75 Respirations: 20 Pulse Ox (%): 95 - Physical Exam General: Cachectic, Severe distress, Other (SEDATED FROM USE OF NARCOTICS FOR PAIN CONTROL. ) - Studies Medications List Reviewed: Yes Assessment And Plan - Current Problems (Diagnosis) (1) Widespread metastatic malignant neoplastic disease Onset Date: 08/15/15 Current Visit: No Status: Acute Plan: END STAGE CANCER INTRACTABLE PAIN. IV PAIN MEDS TO CONTROL AND TAPER OFF WHEN ORAL MEDS TAKE EFFECT. SHE IS ON HOSPICE AND DNR PATIENT AND FAMILY AGREE. RAISE PATCH DOSE. RAISE DILAUDID- CONSTANT NOW. TALKED TO [facility]. PATIENT HAS SEVERE PAIN FROM END STAGE CANCER. I AM STILL NOT ABLE TO TAPER OFF DILAUDID. SHE STILL HAS SEVERE PAIN. HIGH DOSE OF METHADONE AND PATCH ARE NOT ENOUGH. SHE DID NOT DO WELL ON ORAL MORPHINE OUTPATIENT. PLAN IN HPI. RAISE DURAGESIC AND TAPER DILAUDID, STARTED TO DO YEST. SHAVON IS STILL IN SEVERE PAIN FROM END STAGE BREAST CANCER WITH METS TO BONES. I AM REDUCING DILAUDID AND RAISING DURAGESIC. SHE IS ALSO ON METHADONE. I AM RAISING ATIVANTO CONTROL ANXIETY. SHE IS NOT AWAKE ENOUGH TO SWALLOW PILLS. I AM TRYING TO REDUCE PAIN PUMP AND GO UP ON PATCH. HOPEFULLY SHE WILL BE ABLE TO GET OFF PUMP AND BE SOMEWHAT COMFORTABLE WITH PATCH. WE WILL RAISE PATCH AND REDUCE IV DILAUDID FURTHER TODAY. I ASKED NURSE TO REDUCE ATIVAN IV FREQUENCY I WANT HER AWAKE IF SHE CAN TO ASSESS PAIN. I WILL STOP METHADONE NOW. SHE IS NOT ABLE TO SWALLOW ANY LONGER. SHE IS STILL IN SEVERE PAIN. I AM RAISING THE PATCH AND TAPERING DILAUDID TO SEE IF SHE CAN BE SENT HOME ON THE PATCH. SHE WILL BE UNCONSCIOUS AND SO WE EXPECT THAT. 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 FAMILY UNDERSTANDS THAT AND WANT HE PAIN CONTROLLED. TERMINAL BREAST CANCER WITH METS. WE ARE STILL NOT ABLE TO TAPER OFF THE DILAUDID SO SHE CAN BE OFF IV PAIN MEDS.
[2018-11-08] MEDS: LORazepam 2 MG/ML VIAL IV PRN ×4 (02:08→21:08)
[2018-11-08] MEDS ORDERED: HYDROMORPHONE/PCA 10 MG/50 ML SYR IV PRN (06:07)
[2018-11-08] MEDS ORDERED: NALOXONE 0.4 MG/ML VIAL IV PRN (06:07)
[2018-11-08] MEDS: LORAZEPAM 0.5 MG TABLET SL SCH ×6 (10:47→19:00)
[2018-11-08] MEDS: PANTOPRAZOLE 40 MG INJ IVP SCH ×2 (10:47→21:08)
[2018-11-08] MEDS ORDERED: NA CHLORIDE 0.9% 500 ML ONE (17:40)
--- NOTE | 2018-11-08 21:40 | P.PN ---
Subjective Date of Service: 11/08/18 Chief Complaint: SEDATED WITH PAIN MEDS. IN SEVERE PAIN. Subjective: Worsening SHE IS STILL IN SEVERE PAIN THAT SHE DOES NOT WANT TO MOVE. WHOLE CHEST CAGE AND PELVIC HURT FROM METS TO BONE. SHE ALSO HAS SEVERE GERD. SHE SAYS HER PAIN IS SLIGHTLY BETTER BUT SHE STILL HAS SEVERE PAIN, NOW NAUSEA ALSO WITH IT. HER ORAL MEDS AND PATCH ARE NOT WORKING YET. THIS AM WHEN I ASKED HER TO COUGH AND BREATH AND SHE DID NOT HAVE MUCH PAIN. LATER IN PM SHE BECAME VERY SEDATED TO WE REDUCED THE DOSE OF CONTINUOUS DILAUDID SHE HAD SO SHE CAN WAKE UP. I JUST CALLED ANDRÉS AND SHE TOLD ME THAT SHE IS MUCH MORE AWAKE AND PAIN CONTROL IS A LOT BETTER COMPARED TO 3 DAYS AGO. I ASKED ANDRÉS TO REDUCE DILAUDID AGAIN BY 0.2 MG AND IF IT STILL OKAY IN AM REDUCE FURTHER TO 0.8 MG PER HOUR THAT IS LOWER AGAIN. SHE IS MORE AWAKE BUT ALSO IN MORE PAIN NOW. NOT MOVING MUCH IN BED ALSO. 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 SHE WAS THRASHING ALL OVER PER FAMILY IN PAIN. HER ANXIETY IS ALSO SEVERE. SHE IS IN TOO MUCH PAIN EVEN WITH MULTIPLE MEDS AND NOT ABLE TO MOVE WITHOUT PAIN. SEDATED NOW WITH COMFORT CARE RELATED PAIN MEDS AND ANXIETY RELATED ATIVAN. SHE HAD VERY PAINFUL NIGHT. FAMILY GAVE 7 BOLUSES FOR PAIN CONTROL WHENEVER SHE WOKE UP SHE WAS IN SEVERE PAIN. WE WILL CONTINUE TAPER OF THE DILAUDID AND RAISING PATCH. PER FAMILY SHE IS STILL IN SEVERE PAIN BUT HAD BETTER LAST NIGHT SHE WAS HEAVILY SEDATED. SHE NOW IS ALMOST COMATOSE BUT STILL IN SEVERE PAIN WHEN TRIED TO BE AWAKENED OR MOVED. I AM TRYING TO REDUCE DILAUDID AND GIVE HER HIGH DOSE OF DURAGESIC PATCH FOR PAIN CONTROL BUT FAMILY I..E THE DAUGHTER STILL SAYS THAT SHE IS MOANING EVERY 3 -4 HOURS IN PAIN AND SO NEEDS IV DILAUDID PUSH FOR PAIN CONTROL. SHE IS SWELLING ON L SIDE OF FACE. MOANING CONTINUES AT TIMES. Review of Systems is unable to be obtained Physical Examination - Vital Signs Temperature: 98.2 F Blood Pressure: 118/69 Pulse: 86 Respirations: 20 Pulse Ox (%): 95 - Physical Exam General: Cachectic, Severe distress, Comatose Neck: Other (SWELLING OF L SIDE OF FACE.) - Studies Medications List Reviewed: Yes Assessment And Plan - Current Problems (Diagnosis) (1) Widespread metastatic malignant neoplastic disease Onset Date: 08/15/15 Current Visit: No Status: Acute Plan: END STAGE CANCER INTRACTABLE PAIN. IV PAIN MEDS TO CONTROL AND TAPER OFF WHEN ORAL MEDS TAKE EFFECT. SHE IS ON HOSPICE AND DNR PATIENT AND FAMILY AGREE. RAISE PATCH DOSE. RAISE DILAUDID- CONSTANT NOW. TALKED TO [facility]. PATIENT HAS SEVERE PAIN FROM END STAGE CANCER. I AM STILL NOT ABLE TO TAPER OFF DILAUDID. SHE STILL HAS SEVERE PAIN. HIGH DOSE OF METHADONE AND PATCH ARE NOT ENOUGH. SHE DID NOT DO WELL ON ORAL MORPHINE OUTPATIENT. PLAN IN HPI. RAISE DURAGESIC AND TAPER DILAUDID, STARTED TO DO YEST. SHAVON IS STILL IN SEVERE PAIN FROM END STAGE BREAST CANCER WITH METS TO BONES. I AM REDUCING DILAUDID AND RAISING DURAGESIC. SHE IS ALSO ON METHADONE. I AM RAISING ATIVANTO CONTROL ANXIETY. SHE IS NOT AWAKE ENOUGH TO SWALLOW PILLS. I AM TRYING TO REDUCE PAIN PUMP AND GO UP ON PATCH. HOPEFULLY SHE WILL BE ABLE TO GET OFF PUMP AND BE SOMEWHAT COMFORTABLE WITH PATCH. WE WILL RAISE PATCH AND REDUCE IV DILAUDID FURTHER TODAY. I ASKED NURSE TO REDUCE ATIVAN IV FREQUENCY I WANT HER AWAKE IF SHE CAN TO ASSESS PAIN. I WILL STOP METHADONE NOW. SHE IS NOT ABLE TO SWALLOW ANY LONGER. SHE IS STILL IN SEVERE PAIN. I AM RAISING THE PATCH AND TAPERING DILAUDID TO SEE IF SHE CAN BE SENT HOME ON THE PATCH. SHE WILL BE UNCONSCIOUS AND SO WE EXPECT THAT. 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 FAMILY UNDERSTANDS THAT AND WANT HE PAIN CONTROLLED. TERMINAL BREAST CANCER WITH METS. WE ARE STILL NOT ABLE TO TAPER OFF THE DILAUDID SO SHE CAN BE OFF IV PAIN MEDS. NOW SHE IS COMATOSE. NOT NEEDING ANY IV BOLUS. WE WILL CHANGE BACK TO IV ATIVAN ATIVAN IS CAKING IN THE MOUTH WITH SUBLINGUAL. SHE IS HAVING PAUSES OF RESPIRATION. I SUSPECT SHE WILL NOW LAST LESS THAN TWO DAYS.
[2018-11-09] MEDS ORDERED: NA CHLORIDE 0.9% 500 ML ONE (00:15)
[2018-11-09] MEDS: LORazepam 2 MG/ML VIAL IV PRN ×4 (02:48→19:34)
[2018-11-09] MEDS: PANTOPRAZOLE 40 MG INJ IVP SCH ×2 (09:15→19:34)
[2018-11-09] MEDS: FENTANYL 100 MCG/PATCH TD SCH (09:15)
[2018-11-10] MEDS: LORazepam 2 MG/ML VIAL IV PRN ×3 (01:00→19:55)
[2018-11-10] MEDS ORDERED: NA CHLORIDE 0.9% 500 ML ONE ×2 (04:16→19:55)
[2018-11-10] MEDS: PANTOPRAZOLE 40 MG INJ IVP SCH ×2 (09:58→20:00)
[2018-11-10] MEDS: ACETAMINOPHEN 650MG/RECT SUPP PR PRN (19:52)
--- NOTE | 2018-11-10 20:19 | P.PN ---
Subjective Date of Service: 11/10/18 Chief Complaint: COMATOSE SHE IS STILL IN SEVERE PAIN THAT SHE DOES NOT WANT TO MOVE. WHOLE CHEST CAGE AND PELVIC HURT FROM METS TO BONE. SHE ALSO HAS SEVERE GERD. SHE SAYS HER PAIN IS SLIGHTLY BETTER BUT SHE STILL HAS SEVERE PAIN, NOW NAUSEA ALSO WITH IT. HER ORAL MEDS AND PATCH ARE NOT WORKING YET. THIS AM WHEN I ASKED HER TO COUGH AND BREATH AND SHE DID NOT HAVE MUCH PAIN. LATER IN PM SHE BECAME VERY SEDATED TO WE REDUCED THE DOSE OF CONTINUOUS DILAUDID SHE HAD SO SHE CAN WAKE UP. I JUST CALLED ANDRÉS AND SHE TOLD ME THAT SHE IS MUCH MORE AWAKE AND PAIN CONTROL IS A LOT BETTER COMPARED TO 3 DAYS AGO. I ASKED ANDRÉS TO REDUCE DILAUDID AGAIN BY 0.2 MG AND IF IT STILL OKAY IN AM REDUCE FURTHER TO 0.8 MG PER HOUR THAT IS LOWER AGAIN. SHE IS MORE AWAKE BUT ALSO IN MORE PAIN NOW. NOT MOVING MUCH IN BED ALSO. 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 SHE WAS THRASHING ALL OVER PER FAMILY IN PAIN. HER ANXIETY IS ALSO SEVERE. SHE IS IN TOO MUCH PAIN EVEN WITH MULTIPLE MEDS AND NOT ABLE TO MOVE WITHOUT PAIN. SEDATED NOW WITH COMFORT CARE RELATED PAIN MEDS AND ANXIETY RELATED ATIVAN. SHE HAD VERY PAINFUL NIGHT. FAMILY GAVE 7 BOLUSES FOR PAIN CONTROL WHENEVER SHE WOKE UP SHE WAS IN SEVERE PAIN. WE WILL CONTINUE TAPER OF THE DILAUDID AND RAISING PATCH. PER FAMILY SHE IS STILL IN SEVERE PAIN BUT HAD BETTER LAST NIGHT SHE WAS HEAVILY SEDATED. SHE NOW IS ALMOST COMATOSE BUT STILL IN SEVERE PAIN WHEN TRIED TO BE AWAKENED OR MOVED. I AM TRYING TO REDUCE DILAUDID AND GIVE HER HIGH DOSE OF DURAGESIC PATCH FOR PAIN CONTROL BUT FAMILY I..E THE DAUGHTER STILL SAYS THAT SHE IS MOANING EVERY 3 -4 HOURS IN PAIN AND SO NEEDS IV DILAUDID PUSH FOR PAIN CONTROL. SHE IS SWELLING ON L SIDE OF FACE. MOANING CONTINUES AT TIMES. SHAVON IS NOW SHOWING SIGNS OF APNEA PAUSES. OXYGEN IS STARTING TO DROP. Review of Systems is unable to be obtained Physical Examination - Vital Signs Temperature: 100.6 F Blood Pressure: 124/59 Pulse: 84 Respirations: 22 Pulse Ox (%): 91 - Physical Exam General: Comatose HEENT: Atraumatic, PERRLA, Other (L FACIAL SWELLING.), EOMI Neck: Supple, JVD not distended Respiratory: Diminished, Inspiratory wheezes Cardiovascular: Abnormal pulses, Irregular heart rate/rhythm Gastrointestinal: Hypoactive Musculoskeletal: No tenderness Integumentary: No rashes Neurological: Other - Studies Medications List Reviewed: Yes Assessment And Plan - Current Problems (Diagnosis) (1) Widespread metastatic malignant neoplastic disease Onset Date: 08/15/15 Current Visit: No Status: Acute Plan: END STAGE CANCER INTRACTABLE PAIN. IV PAIN MEDS TO CONTROL AND TAPER OFF WHEN ORAL MEDS TAKE EFFECT. SHE IS ON HOSPICE AND DNR PATIENT AND FAMILY AGREE. RAISE PATCH DOSE. RAISE DILAUDID- CONSTANT NOW. TALKED TO [facility]. PATIENT HAS SEVERE PAIN FROM END STAGE CANCER. I AM STILL NOT ABLE TO TAPER OFF DILAUDID. SHE STILL HAS SEVERE PAIN. HIGH DOSE OF METHADONE AND PATCH ARE NOT ENOUGH. SHE DID NOT DO WELL ON ORAL MORPHINE OUTPATIENT. PLAN IN HPI. RAISE DURAGESIC AND TAPER DILAUDID, STARTED TO DO YEST. SHAVON IS STILL IN SEVERE PAIN FROM END STAGE BREAST CANCER WITH METS TO BONES. I AM REDUCING DILAUDID AND RAISING DURAGESIC. SHE IS ALSO ON METHADONE. I AM RAISING ATIVANTO CONTROL ANXIETY. SHE IS NOT AWAKE ENOUGH TO SWALLOW PILLS. I AM TRYING TO REDUCE PAIN PUMP AND GO UP ON PATCH. HOPEFULLY SHE WILL BE ABLE TO GET OFF PUMP AND BE SOMEWHAT COMFORTABLE WITH PATCH. WE WILL RAISE PATCH AND REDUCE IV DILAUDID FURTHER TODAY. I ASKED NURSE TO REDUCE ATIVAN IV FREQUENCY I WANT HER AWAKE IF SHE CAN TO ASSESS PAIN. I WILL STOP METHADONE NOW. SHE IS NOT ABLE TO SWALLOW ANY LONGER. SHE IS STILL IN SEVERE PAIN. I AM RAISING THE PATCH AND TAPERING DILAUDID TO SEE IF SHE CAN BE SENT HOME ON THE PATCH. SHE WILL BE UNCONSCIOUS AND SO WE EXPECT THAT. 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 FAMILY UNDERSTANDS THAT AND WANT HE PAIN CONTROLLED. TERMINAL BREAST CANCER WITH METS. WE ARE STILL NOT ABLE TO TAPER OFF THE DILAUDID SO SHE CAN BE OFF IV PAIN MEDS. NOW SHE IS COMATOSE. NOT NEEDING ANY IV BOLUS. WE WILL CHANGE BACK TO IV ATIVAN ATIVAN IS CAKING IN THE MOUTH WITH SUBLINGUAL. SHE IS HAVING PAUSES OF RESPIRATION. I SUSPECT SHE WILL NOW LAST LESS THAN TWO DAYS. END STAGE BREAST CANACER COMATOSE. DECLINING FAST.
[2018-11-11] MEDS: LORazepam 2 MG/ML VIAL IV PRN ×3 (02:59→20:53)
[2018-11-11] MEDS: ACETAMINOPHEN 650MG/RECT SUPP PR PRN (03:10)
[2018-11-11] MEDS: PANTOPRAZOLE 40 MG INJ IVP SCH ×2 (08:25→20:53)
[2018-11-11] MEDS ORDERED: NA CHLORIDE 0.9% 500 ML ONE (11:10)
--- NOTE | 2018-11-11 13:04 | P.PN ---
Subjective Date of Service: 11/11/18 Chief Complaint: COMATOSE SHE IS STILL IN SEVERE PAIN THAT SHE DOES NOT WANT TO MOVE. WHOLE CHEST CAGE AND PELVIC HURT FROM METS TO BONE. SHE ALSO HAS SEVERE GERD. SHE SAYS HER PAIN IS SLIGHTLY BETTER BUT SHE STILL HAS SEVERE PAIN, NOW NAUSEA ALSO WITH IT. HER ORAL MEDS AND PATCH ARE NOT WORKING YET. THIS AM WHEN I ASKED HER TO COUGH AND BREATH AND SHE DID NOT HAVE MUCH PAIN. LATER IN PM SHE BECAME VERY SEDATED TO WE REDUCED THE DOSE OF CONTINUOUS DILAUDID SHE HAD SO SHE CAN WAKE UP. I JUST CALLED ANDRÉS AND SHE TOLD ME THAT SHE IS MUCH MORE AWAKE AND PAIN CONTROL IS A LOT BETTER COMPARED TO 3 DAYS AGO. I ASKED ANDRÉS TO REDUCE DILAUDID AGAIN BY 0.2 MG AND IF IT STILL OKAY IN AM REDUCE FURTHER TO 0.8 MG PER HOUR THAT IS LOWER AGAIN. SHE IS MORE AWAKE BUT ALSO IN MORE PAIN NOW. NOT MOVING MUCH IN BED ALSO. 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 SHE WAS THRASHING ALL OVER PER FAMILY IN PAIN. HER ANXIETY IS ALSO SEVERE. SHE IS IN TOO MUCH PAIN EVEN WITH MULTIPLE MEDS AND NOT ABLE TO MOVE WITHOUT PAIN. SEDATED NOW WITH COMFORT CARE RELATED PAIN MEDS AND ANXIETY RELATED ATIVAN. SHE HAD VERY PAINFUL NIGHT. FAMILY GAVE 7 BOLUSES FOR PAIN CONTROL WHENEVER SHE WOKE UP SHE WAS IN SEVERE PAIN. WE WILL CONTINUE TAPER OF THE DILAUDID AND RAISING PATCH. PER FAMILY SHE IS STILL IN SEVERE PAIN BUT HAD BETTER LAST NIGHT SHE WAS HEAVILY SEDATED. SHE NOW IS ALMOST COMATOSE BUT STILL IN SEVERE PAIN WHEN TRIED TO BE AWAKENED OR MOVED. I AM TRYING TO REDUCE DILAUDID AND GIVE HER HIGH DOSE OF DURAGESIC PATCH FOR PAIN CONTROL BUT FAMILY I..E THE DAUGHTER STILL SAYS THAT SHE IS MOANING EVERY 3 -4 HOURS IN PAIN AND SO NEEDS IV DILAUDID PUSH FOR PAIN CONTROL. SHE IS SWELLING ON L SIDE OF FACE. MOANING CONTINUES AT TIMES. SHAVON IS NOW SHOWING SIGNS OF APNEA PAUSES. OXYGEN IS STARTING TO DROP. HAS PAUSES IN BREATHING, LOW GRADE TEMPERATURE AND CONTINUED COMATOSE STATUS. Review of Systems is unable to be obtained Physical Examination - Vital Signs Temperature: 100.3 F Blood Pressure: 117/57 Pulse: 89 Respirations: 24 Pulse Ox (%): 88 - Physical Exam General: Mild distress, Comatose Cardiovascular: Regular rate/rhythm, Systolic murmur - Studies Medications List Reviewed: Yes Assessment And Plan - Current Problems (Diagnosis) (1) Widespread metastatic malignant neoplastic disease Onset Date: 08/15/15 Current Visit: No Status: Acute Plan: END STAGE CANCER INTRACTABLE PAIN. IV PAIN MEDS TO CONTROL AND TAPER OFF WHEN ORAL MEDS TAKE EFFECT. SHE IS ON HOSPICE AND DNR PATIENT AND FAMILY AGREE. RAISE PATCH DOSE. RAISE DILAUDID- CONSTANT NOW. TALKED TO [facility]. PATIENT HAS SEVERE PAIN FROM END STAGE CANCER. I AM STILL NOT ABLE TO TAPER OFF DILAUDID. SHE STILL HAS SEVERE PAIN. HIGH DOSE OF METHADONE AND PATCH ARE NOT ENOUGH. SHE DID NOT DO WELL ON ORAL MORPHINE OUTPATIENT. PLAN IN HPI. RAISE DURAGESIC AND TAPER DILAUDID, STARTED TO DO YEST. SHAVON IS STILL IN SEVERE PAIN FROM END STAGE BREAST CANCER WITH METS TO BONES. I AM REDUCING DILAUDID AND RAISING DURAGESIC. SHE IS ALSO ON METHADONE. I AM RAISING ATIVANTO CONTROL ANXIETY. SHE IS NOT AWAKE ENOUGH TO SWALLOW PILLS. I AM TRYING TO REDUCE PAIN PUMP AND GO UP ON PATCH. HOPEFULLY SHE WILL BE ABLE TO GET OFF PUMP AND BE SOMEWHAT COMFORTABLE WITH PATCH. WE WILL RAISE PATCH AND REDUCE IV DILAUDID FURTHER TODAY. I ASKED NURSE TO REDUCE ATIVAN IV FREQUENCY I WANT HER AWAKE IF SHE CAN TO ASSESS PAIN. I WILL STOP METHADONE NOW. SHE IS NOT ABLE TO SWALLOW ANY LONGER. SHE IS STILL IN SEVERE PAIN. I AM RAISING THE PATCH AND TAPERING DILAUDID TO SEE IF SHE CAN BE SENT HOME ON THE PATCH. SHE WILL BE UNCONSCIOUS AND SO WE EXPECT THAT. 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 FAMILY UNDERSTANDS THAT AND WANT HE PAIN CONTROLLED. TERMINAL BREAST CANCER WITH METS. WE ARE STILL NOT ABLE TO TAPER OFF THE DILAUDID SO SHE CAN BE OFF IV PAIN MEDS. NOW SHE IS COMATOSE. NOT NEEDING ANY IV BOLUS. WE WILL CHANGE BACK TO IV ATIVAN ATIVAN IS CAKING IN THE MOUTH WITH SUBLINGUAL. SHE IS HAVING PAUSES OF RESPIRATION. I SUSPECT SHE WILL NOW LAST LESS THAN TWO DAYS. END STAGE BREAST CANACER COMATOSE. DECLINING FAST.
[2018-11-12] MEDS ORDERED: NA CHLORIDE 0.9% 500 ML ONE ×2 (02:34→17:12)
[2018-11-12] MEDS: FENTANYL 100 MCG/PATCH TD SCH (08:33)
[2018-11-12] MEDS: PANTOPRAZOLE 40 MG INJ IVP SCH ×2 (08:35→21:16)
[2018-11-12] MEDS: LORazepam 2 MG/ML VIAL IV PRN (09:32)
[2018-11-12 09:55] VITALS: O2SAT 91
--- NOTE | 2018-11-12 10:51 | P.PN ---
Subjective Date of Service: 11/12/18 Chief Complaint: COMATOSE Subjective: Worsening SHE IS STILL IN SEVERE PAIN THAT SHE DOES NOT WANT TO MOVE. WHOLE CHEST CAGE AND PELVIC HURT FROM METS TO BONE. SHE ALSO HAS SEVERE GERD. SHE SAYS HER PAIN IS SLIGHTLY BETTER BUT SHE STILL HAS SEVERE PAIN, NOW NAUSEA ALSO WITH IT. HER ORAL MEDS AND PATCH ARE NOT WORKING YET. THIS AM WHEN I ASKED HER TO COUGH AND BREATH AND SHE DID NOT HAVE MUCH PAIN. LATER IN PM SHE BECAME VERY SEDATED TO WE REDUCED THE DOSE OF CONTINUOUS DILAUDID SHE HAD SO SHE CAN WAKE UP. I JUST CALLED ANDRÉS AND SHE TOLD ME THAT SHE IS MUCH MORE AWAKE AND PAIN CONTROL IS A LOT BETTER COMPARED TO 3 DAYS AGO. I ASKED ANDRÉS TO REDUCE DILAUDID AGAIN BY 0.2 MG AND IF IT STILL OKAY IN AM REDUCE FURTHER TO 0.8 MG PER HOUR THAT IS LOWER AGAIN. SHE IS MORE AWAKE BUT ALSO IN MORE PAIN NOW. NOT MOVING MUCH IN BED ALSO. 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 SHE WAS THRASHING ALL OVER PER FAMILY IN PAIN. HER ANXIETY IS ALSO SEVERE. SHE IS IN TOO MUCH PAIN EVEN WITH MULTIPLE MEDS AND NOT ABLE TO MOVE WITHOUT PAIN. SEDATED NOW WITH COMFORT CARE RELATED PAIN MEDS AND ANXIETY RELATED ATIVAN. SHE HAD VERY PAINFUL NIGHT. FAMILY GAVE 7 BOLUSES FOR PAIN CONTROL WHENEVER SHE WOKE UP SHE WAS IN SEVERE PAIN. WE WILL CONTINUE TAPER OF THE DILAUDID AND RAISING PATCH. PER FAMILY SHE IS STILL IN SEVERE PAIN BUT HAD BETTER LAST NIGHT SHE WAS HEAVILY SEDATED. SHE NOW IS ALMOST COMATOSE BUT STILL IN SEVERE PAIN WHEN TRIED TO BE AWAKENED OR MOVED. I AM TRYING TO REDUCE DILAUDID AND GIVE HER HIGH DOSE OF DURAGESIC PATCH FOR PAIN CONTROL BUT FAMILY I..E THE DAUGHTER STILL SAYS THAT SHE IS MOANING EVERY 3 -4 HOURS IN PAIN AND SO NEEDS IV DILAUDID PUSH FOR PAIN CONTROL. SHE IS SWELLING ON L SIDE OF FACE. MOANING CONTINUES AT TIMES. SHAVON IS NOW SHOWING SIGNS OF APNEA PAUSES. OXYGEN IS STARTING TO DROP. HAS PAUSES IN BREATHING, LOW GRADE TEMPERATURE AND CONTINUED COMATOSE STATUS. HIGH FEVER NOW, RAPID BREATHING. DAUGHTER GIVES ABOUT 4-5 BOLUSES OF DILAUDID TO CONTROL PAIN EVERY DAY. Review of Systems is unable to be obtained Physical Examination - Vital Signs Temperature: 102.2 F Blood Pressure: 106/83 Pulse: 96 Respirations: 28 Pulse Ox (%): 91 - Physical Exam General: Comatose Respiratory: Diminished, Other (RAPID SHALLOW BREATHING WITH PAUSES.) Cardiovascular: Regular rate/rhythm - Studies Medications List Reviewed: Yes Assessment And Plan - Current Problems (Diagnosis) (1) Widespread metastatic malignant neoplastic disease Onset Date: 08/15/15 Current Visit: No Status: Acute Plan: END STAGE CANCER INTRACTABLE PAIN. IV PAIN MEDS TO CONTROL AND TAPER OFF WHEN ORAL MEDS TAKE EFFECT. SHE IS ON HOSPICE AND DNR PATIENT AND FAMILY AGREE. RAISE PATCH DOSE. RAISE DILAUDID- CONSTANT NOW. TALKED TO [facility]. PATIENT HAS SEVERE PAIN FROM END STAGE CANCER. I AM STILL NOT ABLE TO TAPER OFF DILAUDID. SHE STILL HAS SEVERE PAIN. HIGH DOSE OF METHADONE AND PATCH ARE NOT ENOUGH. SHE DID NOT DO WELL ON ORAL MORPHINE OUTPATIENT. PLAN IN HPI. RAISE DURAGESIC AND TAPER DILAUDID, STARTED TO DO YEST. SHAVON IS STILL IN SEVERE PAIN FROM END STAGE BREAST CANCER WITH METS TO BONES. I AM REDUCING DILAUDID AND RAISING DURAGESIC. SHE IS ALSO ON METHADONE. I AM RAISING ATIVANTO CONTROL ANXIETY. SHE IS NOT AWAKE ENOUGH TO SWALLOW PILLS. I AM TRYING TO REDUCE PAIN PUMP AND GO UP ON PATCH. HOPEFULLY SHE WILL BE ABLE TO GET OFF PUMP AND BE SOMEWHAT COMFORTABLE WITH PATCH. WE WILL RAISE PATCH AND REDUCE IV DILAUDID FURTHER TODAY. I ASKED NURSE TO REDUCE ATIVAN IV FREQUENCY I WANT HER AWAKE IF SHE CAN TO ASSESS PAIN. I WILL STOP METHADONE NOW. SHE IS NOT ABLE TO SWALLOW ANY LONGER. SHE IS STILL IN SEVERE PAIN. I AM RAISING THE PATCH AND TAPERING DILAUDID TO SEE IF SHE CAN BE SENT HOME ON THE PATCH. SHE WILL BE UNCONSCIOUS AND SO WE EXPECT THAT. 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 FAMILY UNDERSTANDS THAT AND WANT HE PAIN CONTROLLED. TERMINAL BREAST CANCER WITH METS. WE ARE STILL NOT ABLE TO TAPER OFF THE DILAUDID SO SHE CAN BE OFF IV PAIN MEDS. NOW SHE IS COMATOSE. NOT NEEDING ANY IV BOLUS. WE WILL CHANGE BACK TO IV ATIVAN ATIVAN IS CAKING IN THE MOUTH WITH SUBLINGUAL. SHE IS HAVING PAUSES OF RESPIRATION. I SUSPECT SHE WILL NOW LAST LESS THAN TWO DAYS. END STAGE BREAST CANACER COMATOSE. DECLINING FAST. NEEDS IV PAIN MEDS TO CONTROL PAIN. I SUSPECT SHE MAY HAVE DAY OR TWO MORE TO LIVE.
[2018-11-13] MEDS: LORazepam 2 MG/ML VIAL IV PRN ×2 (03:42→05:53)
[2018-11-13 08:21] VITALS: BP 95/47; TEMP 102.4
[2018-11-13] MEDS: PANTOPRAZOLE 40 MG INJ IVP SCH (09:00)
[2018-11-13] MEDS: ACETAMINOPHEN 650MG/RECT SUPP PR PRN (09:42)
--- NOTE | 2018-11-14 17:36 | P.DS ---
Admission Date: 10/28/18 Discharge Date: 11/14/18 Disposition: Discharge Condition: Reason for Admission: COMATOSE - Problems (1) Widespread metastatic malignant neoplastic disease Onset Date: 08/15/15 Status: Acute Brief History of Present Illness: SHAVON HAS END STAGE BREAST CANCER WITH METS TO BONES. SHE HAS INTRACTABLE PAIN. MORPHINE EVERY 20 MG EVERY 2 HOURS DID NOT CONTROL HER PAIN. I STARTED DURAGESIC PATCH 50 MCG YESTERDAY. SHE IS STILL IN SEVERE PAIN. SHE IS ADMITTED TO CONTROL PAIN AND COMBINE IV WITH ORAL MEDS TO LATER TAPER OFF THE INDUSTRIAL CHEMIST PUMP IF POSSIBLE. MS. SHORT EXPECTED IN PREVIOUS NOTES. Vital Signs/Physical Exam: Temp Pulse Resp BP Pulse Ox 102.4 F H 106 H 28 H 95/47 L 84 L 11/13/18 08:00 11/13/18 08:00 11/13/18 08:00 11/13/18 08:00 11/13/18 08:00 Home Medications: Acetaminophen [Tylenol*] 650 mg WA Q4H PRN 10/28/18 Ciprofloxacin HCl [Cipro 500 MG Tablet] 500 mg PO BID PRN 10/28/18 Diazepam [Valium] 10 mg PO Q6H PRN 10/28/18 LORazepam [Ativan*] 0.5 mg SL Q2H PRN 10/28/18 Lactulose 30 ml PO DAILY PRN 10/28/18 Morphine Sulfate [Roxanol] 1 ml SL Q2H PRN 10/28/18 Ondansetron HCl [Zofran] 4 mg PO Q4H PRN 10/28/18 Pentazocine HCl/Naloxone HCl [Pentazocine-Naloxone Tablet] 1 tab PO Q6H PRN Scopolamine 1 patch TD SEECOM PRN 10/28/18
[2018-11-15] MEDS ORDERED: FENTANYL 100 MCG/PATCH TD SCH (09:00)
== END 2018-11-13 10:51 | disposition expired | DRG 951 ==
LOC: 4TH 13:37
PROVIDERS: ADMIT Internal Medicine; ATTEND Internal Medicine
DX: Z51.5 Encounter for palliative care (principal); C79.51 Secondary malignant neoplasm of bone; C50.919 Malignant neoplasm of unspecified site of unspecified female breast; I65.8 Occlusion and stenosis of other precerebral arteries; I48.0 Paroxysmal atrial fibrillation; K21.9 Gastro-esophageal reflux disease without esophagitis; I10 Essential (primary) hypertension; E78.5 Hyperlipidemia, unspecified; Z66 Do not resuscitate; G89.3 Neoplasm related pain (acute) (chronic); R11.0 Nausea; F41.9 Anxiety disorder, unspecified; R60.0 Localized edema; R40.2 Coma
CPT/HCPCS: C9113; J1170; J2550